=== PATIENT | male | born 1990 | race Caucasian/White ===

== ENCOUNTER 2020-05-03 01:11 | Emergency (ER) | payer BC, SELFPAY | END 2020-05-03 01:50 | disposition home or self-care (01) | LOC: CHSED 07:01 | PROVIDERS: Emergency Provider Emergency Medicine | DX: H60.93 Unspecified otitis externa, bilateral (principal) | CPT/HCPCS: 99199; 99283; A9270 ==

== ENCOUNTER 2020-10-04 11:44 | Outpatient (CLI) | payer BC, SELFPAY ==
[2020-10-04 12:51] LABS: SARS-CoV-2 Ag Negative (Negative)
== END 2020-10-04 11:45 | disposition home or self-care (01) ==
LOC: CHSLAB 11:49
DX: Z20.828 Contact with and (suspected) exposure to other viral communicable diseases (principal)
CPT/HCPCS: 87426

== ENCOUNTER 2024-05-20 07:35 | Emergency (ER) | payer SELFPAY ==
--- NOTE | ~2024-05-20 | CT_ITS ---
EXAMINATION: CT abdomen pelvis w con DATE: 05/20/2024 09:47 INDICATION: Left upper quadrant abdominal pain. Nausea. TECHNIQUE: Computed tomography (CT) of the abdomen and pelvis was performed with 100 mL Omnipaque 350 intravenous contrast. Automated exposure control and iterative reconstruction technique were employe d. The dose-length product was 1112.44 mGy-cm. COMPARISON: None. FINDINGS: The visualized portions of the lung bases demonstrate mild atelectasis. No pleural effusion . The heart size is normal. No pericardial effusion. There is mild bilateral gynecomastia. The liver, gallbladder, spleen, pancreas, adrenal glands, and kidneys are normal. There are no dilated loops of bowel. The appendix is normal. There are no pathologically enlarged lymph nodes. There is no free in traperitoneal fluid. There are chronic bilateral L5 pars defects. There is 3 mm anterolisthesis of L5 on S1. There is mild thoracic and lumbar spondylosis. There is mild chronic anterior wedging of mult iple thoracic vertebral bodies. IMPRESSION: 1. No etiology for the patient's symptoms. Reviewed, dictated and finalized at location A.
[2024-05-20 07:36] VITALS: BP 186/107; PULSE 107; RESP 20; TEMP 36.6; O2SAT 100
--- NOTE | 2024-05-20 07:42 | ECG_ITS ---
Test Date: 2024-05-20 07:51:39 Measurements Intervals [place] Rate: 87 P: 36 SD: 132 QRS: 1 QRSD: 90 T: 53 QT: 351 QTc: 424 Interpretive Statements SINUS RHYTHM WITH OCCASIONAL ECTOPIC PREMATURE COMPLEXES BORDERLINE ECG No previous ECG available for comparison Electronically Signed On 05-20-2024 07:53:56 CDT by Jace Fields D.O.
[2024-05-20 07:45] LABS: Glucose Point of Care 329 mg/dl (65-105)
[2024-05-20] MEDS: ONDANSETRON INJ 4 MG/2 ML VIAL IV PUSH (07:52)
[2024-05-20] MEDS: SODIUM CHLORIDE 0.9% IV 1,000 ML 999 ML IV CONT (07:52)
--- NOTE | 2024-05-20 07:58 | PC.NURSE ---
Patient refuses to take off pump due to wasting all the insulin still inside, Patient able to turn off auto bolus' and put in standby mode via phone.
[2024-05-20 08:30] VITALS: BP 175/103; PULSE 94; RESP 18; O2SAT 98
[2024-05-20 08:30] LABS: Basophils Absolute Auto 0.04 K/mm3 (0.00-0.10); Basophils Percent Auto 0.3 % (0.0-1.0); Hematocrit 37.9 % (40.0-54.0); Hemoglobin 13.4 g/dL (14.0-18.0); Immature Granulocyte Absolute 0.05 K/mm3 (0.00-0.00); Immature Granulocyte Percent A 0.4 % (0.0-0.0); Lymphocytes Absolute Auto 1.07 K/mm3 (1.10-4.50); Lymphocytes Percent Auto 8.1 % (18.0-42.0); Mean Corpuscular HGB Conc 35.4 g/dL (32-36); Mean Corpuscular Hemoglobin 29.5 pg (27.0-31.0); Mean Corpuscular Volume 83.5 fL (78.0-102.0); Mean Platelet Volume 11.1 fl (8.7-11.0); Monocytes Absolute Auto 0.19 K/mm3 (0.10-0.90); Monocytes Percent Auto 1.4 % (2.0-11.0); Neutrophils Percent Auto 89.8 % (50.0-70.0); Platelet Count Result 373 K/mm3 (150-420); Red Blood Count 4.54 M/mm3 (4.70-6.10); White Blood Count 13.2 K/mm3 (4.8-10.8)
[2024-05-20 08:40] LABS: Partial Thromboplastin Time 25.6 Sec (23.9-30.70); Prothrombin Time 10.6 Seconds (9.50-12.1)
[2024-05-20 08:50] LABS: Glucose Point of Care 318 mg/dl (65-105)
[2024-05-20 09:00] VITALS: BP 195/95; PULSE 100; RESP 16; O2SAT 98
--- NOTE | 2024-05-20 09:01 | PC.NURSE ---
ERP made aware of continuous elevated blood pressure, patient reports taking blood pressure medication as prescribed.
[2024-05-20 09:08] LABS: Influenza A QL RT-PCR Negative (Negative); Influenza B QL RT-PCR Negative (Negative); RSV RNA, RT-PCR Negative (Negative); SARS-CoV-2 RNA PCR Negative (Negative)
[2024-05-20 09:20] LABS: Albumin Level 3.9 g/dL (3.4-5.0); Alkaline Phosphatase 136 U/L (46-116); Anion Gap 11 mmol/L (4-12); Aspartate Amino Transferase 12 U/L (15-37); Bilirubin,Total 0.6 mg/dL (0.00-1.00); Blood Urea Nitrogen 23 mg/dL (7-18); Calcium 8.8 mg/dL (8.5-10.1); Carbon Dioxide 23 mmol/L (21-32); Chloride 95 mmol/L (98-108); Estimated CRCL calculation 75 ml/min; Estimated Glomerular Filt Rate 50; Glucose 310 mg/dL (70-99); Lipase 10 U/L (16-77); Osmolality Calculated 283 mOsm/kg (285-295); Potassium 4.9 mmol/L (3.5-5.1); Sodium 129 mmol/L (136-145); Total Protein 7.9 g/dL (6.4-8.2); Troponin I 12.6 ng/L (0.00-60.4)
[2024-05-20 09:22] LABS: Lactic Acid Reflex 1.5 mmol/L (0.4-2.0)
[2024-05-20 09:30] VITALS: BP 171/102; PULSE 100; RESP 16; O2SAT 99
[2024-05-20 09:30] LABS: Appearance Urine Clear (Clear); Bilirubin Urine Negative (Negative); Blood Urine 3+ (Negative); Color Urine Light Yellow (Yellow); Glucose Urine UA 3+ (Negative); Ketones Urine 1+ (Negative); Leukocyte Esterase Ur Negative LEU/UL (Negative); Nitrate Urine Negative (Negative); Protein Urine 3+ (Negative); Specific Grav Ur 1.025 (1.010-1.020); Urobilinogen Urine 0.2 mg/dL (0.2-1.0); pH Urine 5.5 (5.0-8.0)
--- NOTE | 2024-05-20 09:31 | PC.NURSE ---
Patient taken down to Ct.
[2024-05-20 09:38] LABS: Add Urine Microscopic? YES; RBC Urine 0-2 /hpf (0-2)
[2024-05-20 09:39] LABS: Amorphous Sediment Urine Moderate
--- NOTE | 2024-05-20 09:42 | PC.NURSE ---
patient back in room from ct.
[2024-05-20 09:43] LABS: Alanine Aminotransferase 18 U/L (16-63)
[2024-05-20 10:00] VITALS: BP 178/109; PULSE 93; RESP 16; O2SAT 100
[2024-05-20 10:04] LABS: Glucose Point of Care 302 mg/dl (65-105)
--- NOTE | 2024-05-20 10:05 | PC.NURSE ---
ERP aware of patient's blood glucose, Patient is going to apply dexcom monitor when he gets home and restart insulin pump to manage.
--- NOTE | 2024-05-20 10:05 | ED.NAVMDI ---
HPI - Nausea/Vomiting/Diarrhea General Chief complaint: Nausea/Vomiting/Diarrhea Stated complaint: nausea, vomiting Time Seen by Provider: 05/20/24 07:36 Source: patient Mode of arrival: ambulatory Limitations: no limitations History of Present Illness HPI Narrative: this is 33-year-old male with history of diabetes currently on insulin since Wednesday has been having nausea with vomiting crampy abdominal pain currently no diarrhea no fever chills, denies any shortness of breath no chest pain no flank pain or dysuria no hematuria. MD elicited complaint: nausea, vomiting and abdominal pain Onset (ago): day(s) Description of vomiting: watery Associated nausea: Yes Associated abdominal pain: Yes Location of pain: epigastric Related Data Home Medications Medication Instructions Recorded Confirmed blood-glucose sensor (Dexcom G6 05/20/24 05/20/24 Sensor device) insulin aspart U-100 100 unit/mL 90 unit subcut DAILY 05/20/24 05/20/24 subcutaneous solution (Novolog U-100 Insulin aspart) insulin pump cart,automated,BT 05/20/24 05/20/24 (Omnipod 5 G6 Pods (Gen 5) subcutaneous cartridge) lisinopril 10 mg tablet 10 mg PO DAILY 05/20/24 05/20/24 Allergies Allergy/AdvReac Type Severity Reaction Status Date / Time No Known Allergies Allergy Verified 05/20/24 07:37 Review of Systems Review of Systems: All systems reviewed & are unremarkable except as noted in HPI and below PMFSH Past Medical History Medical History Diabetes mellitus Exam Const: General: healthy appearing, no acute distress and alert Nutritional Appearance: well nourished Orientation/consciousness: patient oriented x3 Limitations: no limitations HENMT: Head: normal to inspection Eyes: Conjunctivae: conjunctivae normal Neck: Neck: normal visual inspection, no lymphadenopathy and no meningeal signs Chest: Chest palpation & inspection: normal inspection of the chest Resp: Effort & Inspection: normal respiratory effort Auscultation: clear to auscultation bilaterally Cardio: Rate: regular rate Rhythm: regular rhythm GI: GI Palp: Yes Soft to palpation and Yes Tenderness to palpation present (GI) : General: Yes bladder normal to palpation Skin: General skin exam: normal color Rashes: no rashes Neuro: General: patient oriented x3 Extrem: General: normal to inspection, no clubbing, cyanosis or edema and no pedal edema Course Course Emergency Course: patient received IV fluids and IV Zofran after reassessment patient's symptoms have improved sodium was 129 but did receive normal saline bolus glucose levels have improved and currently at 3:10 a.m.. Vital Signs Vital signs: Vital Signs Temperature 36.6 C 05/20/24 07:36 Pulse Rate 107 H 05/20/24 07:36 Respiratory Rate 20 05/20/24 07:36 Blood Pressure 186/107 H 05/20/24 07:36 Pulse Oximetry 100 05/20/24 07:36 Oxygen Delivery Room Air 05/20/24 07:36 Temperature 36.6 C 05/20/24 07:36 Pulse Rate 100 05/20/24 09:30 Respiratory Rate 16 05/20/24 09:30 Blood Pressure 171/102 H 05/20/24 09:30 Pulse Oximetry 99 05/20/24 09:30 Oxygen Delivery Room Air 05/20/24 09:00 MDM - Nausea/Vomiting/Diarrhea Lab Data 05/20/24 08:08 05/20/24 08:08 Labs: Lab Results 05/20/24 05/20/24 05/20/24 Range/Units 07:43 08:08 08:47 WBC 13.2 H (4.8-10.8) K/mm3 RBC 4.54 L (4.70-6.10) M/mm3 Hgb 13.4 L (14.0-18.0) g/dL Hct 37.9 L (40.0-54.0) % MCV 83.5 (78.0-102.0) fL MCH 29.5 (27.0-31.0) pg MCHC 35.4 (32-36) g/dL RDW 12.0 (11.6-14.4) % Plt Count 373 (150-420) K/mm3 MPV 11.1 H (8.7-11.0) fl Immature Gran % (Auto) 0.4 H (0.0-0.0) % Neut % (Auto) 89.8 H (50.0-70.0) % Lymph % (Auto) 8.1 L (18.0-42.0) % [place] % (Auto) 1.4 L (2.0-11.0) % Eos % (Auto) 0.0 L (1.0-6.0) % Baso % (Auto) 0.3 (0.0
[2024-05-20 10:17] VITALS: BP 178/109; PULSE 93; RESP 17; TEMP 36.3; O2SAT 100
--- NOTE | 2024-05-26 13:52 | PC.NURSE ---
Final blood culture report: no growth after 5 days, no further action or treatment needed.
--- NOTE | 2024-05-27 12:50 | PC.NURSE ---
final blood culture report reviewed. cutibacterium acnes noted from anaerobic bottle only. erp to review report
--- NOTE | 2024-05-28 12:41 | PC.NURSE ---
BLOOD CULTURE REVIEWED PER DR VINES, NO CHANGES NEEDED, JUST FOLLOW UP WITH FMD. CALL TO PT AND MESSAGE LEFT PER VOIC[employer]
== END 2024-05-20 10:17 | disposition home or self-care (01) ==
PROVIDERS: Emergency Provider Emergency Medicine
DX: K52.9 Noninfective gastroenteritis and colitis, unspecified (principal); E11.65 Type 2 diabetes mellitus with hyperglycemia; Z79.4 Long term (current) use of insulin; Z20.822 Contact with and (suspected) exposure to COVID-19
CPT/HCPCS: 36415; 74177; 80053; 81001; 82948; 83605; 83690; 84484; 85025; 85610; 85730; 87040; 87147; 87637; 93005; 96361; 96374; 99284; J2405; J7030; Q9967

== ENCOUNTER 2024-05-21 14:42 | Emergency (ER) | payer SELFPAY ==
[2024-05-21 14:42] VITALS: BP 126/80; PULSE 81; RESP 16; TEMP 36.6; O2SAT 97
--- NOTE | 2024-05-21 14:50 | ED.BACK ---
HPI - Back Pain/Injury General Chief Complaint: Back Pain/Injury Stated Complaint: back pain Time Seen by Provider: 05/21/24 14:50 Source: patient Mode of arrival: ambulatory Limitations: no limitations History of Present Illness HPI Narrative: patient is a 33-year-old male who was here yesterday for an abdominal pain workup and was found to have some dehydration. He also had a malfunction of his diabetic pump and blood sugar monitor. At this time his blood sugars at home have been normal. He is here with some lower back pain and a little bit of cramping in the belly after being sick for the past few days. He was having nausea vomiting which has resolved at this time. MD elicited complaint: back pain Pertinent past history: other ( Recent acute illness that had vomiting) Onset (ago): day(s) (2) Timing: constant Severity: moderate Pain scale (0-10): 5 Similar Symptoms Previously: No Quality: sharp Location: lumbar spine and thoracic spine Radiation: abdomen Exacerbating factors: movement Relieving factors: immobilization Context: other ( recent illness with vomiting) Associated symptoms: denies other symptoms Treatments prior to arrival: heat therapy Related Data Home Medications Medication Instructions Recorded Confirmed blood-glucose sensor (Dexcom G6 05/20/24 05/21/24 Sensor device) insulin aspart U-100 100 unit/mL 90 unit subcut DAILY 05/20/24 05/21/24 subcutaneous solution (Novolog U-100 Insulin aspart) insulin pump cart,automated,BT 05/20/24 05/21/24 (Omnipod 5 G6 Pods (Gen 5) subcutaneous cartridge) lisinopril 10 mg tablet 10 mg PO DAILY 05/20/24 05/21/24 Allergies Allergy/AdvReac Type Severity Reaction Status Date / Time No Known Allergies Allergy Verified 05/21/24 14:43 Review of Systems Review of Systems: All systems reviewed & are unremarkable except as noted in HPI and below Constitutional: Constitutional: Reports no additional constitutional complaints Eyes: Eyes: Reports no additional eye complaints ENT: Reports system reviewed and no additional complaints, except as documented Cardiovascular: Cardiovascular: Reports no additional cardiovascular complaints Respiratory: Respiratory: Reports no additional respiratory complaints Gastrointestinal: Gastrointestinal: Reports no additional gastrointestinal complaints Genitourinary: Genitourinary: Reports no additional male genitourinary complaints Musculoskeletal: Musculoskeletal: Reports no additional musculoskeletal complaints Integumentary/Breasts: Skin/Breast: Reports system reviewed and no additional complaints, except as docu Neurologic: Reports system reviewed and no additional complaints, except as documented Psychiatric: Psychiatric: Reports no additional psychiatric complaints Endocrine: Endocrine: Reports no additional endocrine complaints Hematologic/Lymphatic: Hematologic/Lymphatic: Reports no additional hematologic/lymphatic complaints Allergic/Immunologic: Allergic/Immunologic: Reports no additional allergic/immunologic complaints PMFSH Past Medical History Medical History Diabetes mellitus Exam Const: General: healthy appearing Nutritional Appearance: well nourished Orientation/consciousness: patient oriented x3 HENMT: Head: normal to inspection Ears: external ears normal Face/Nose/Sinus: Normal external nose present Eyes: Conjunctivae: conjunctivae normal Pupils: Equal, round and reactive pupils present EOM: EOMs intact bilaterally Neck: Neck: normal visual inspection Chest: Chest palpation & inspection: normal inspection of the chest Resp: Effort & Inspection: normal respiratory effort and not labored Auscultation: clear to auscultation bilaterally Cardio: Rate: regular rate Rhythm: regular rhythm Heart sounds: no murmurs GI: Inspection: non-distended GI Palp: Yes Soft to palpation, No Tenderness to palpation present (GI),
[2024-05-21 15:00] VITALS: BP 164/99; PULSE 80; RESP 17; O2SAT 99
[2024-05-21] MEDS: ORPHENADRINE CITRATE 30 MG/ML 2 ML VIAL 60 MG IM (15:11)
[2024-05-21 15:30] VITALS: BP 173/106; PULSE 84; RESP 17; O2SAT 99
[2024-05-21 15:51] VITALS: BP 174/103; PULSE 86; RESP 17; TEMP 36.6; O2SAT 99
== END 2024-05-21 15:51 | disposition home or self-care (01) ==
PROVIDERS: Emergency Provider Emergency Medicine
DX: S39.012A Strain of muscle, fascia and tendon of lower back, initial encounter (principal); E11.9 Type 2 diabetes mellitus without complications; Z79.4 Long term (current) use of insulin; X58.XXXA Exposure to other specified factors, initial encounter
CPT/HCPCS: 96372; 99283; J2360

== ENCOUNTER 2024-06-16 09:42 | Outpatient (CLI) | payer BC, SELFPAY ==
[2024-06-16 09:56] LABS: Basophils Absolute Auto 0.07 K/mm3 (0.00-0.10); Basophils Percent Auto 0.9 % (0.0-1.0); Eosinophils Absolute Auto 0.12 K/mm3 (0.02-0.50); Eosinophils Percent Auto 1.6 % (1.0-6.0); Hematocrit 37.3 % (40.0-54.0); Hemoglobin 12.8 g/dL (14.0-18.0); Immature Granulocyte Absolute 0.01 K/mm3 (0.00-0.00); Immature Granulocyte Percent A 0.1 % (0.0-0.0); Lymphocytes Absolute Auto 2.38 K/mm3 (1.10-4.50); Mean Corpuscular HGB Conc 34.3 g/dL (32-36); Mean Corpuscular Hemoglobin 29.4 pg (27.0-31.0); Mean Corpuscular Volume 85.7 fL (78.0-102.0); Mean Platelet Volume 11.5 fl (8.7-11.0); Monocytes Percent Auto 5.4 % (2.0-11.0); Neutrophils Absolute Auto 4.45 K/mm3 (1.70-7.20); Platelet Count Result 348 K/mm3 (150-420); Red Blood Count 4.35 M/mm3 (4.70-6.10); Red Cell Distribution Width 12.1 % (11.6-14.4); White Blood Count 7.4 K/mm3 (4.8-10.8)
[2024-06-16 10:50] LABS: Alanine Aminotransferase 17 U/L (16-63); Albumin Level 4.2 g/dL (3.4-5.0); Alkaline Phosphatase 76 U/L (46-116); Anion Gap 8 mmol/L (4-12); Aspartate Amino Transferase 10 U/L (15-37); Bilirubin,Total 0.5 mg/dL (0.00-1.00); Blood Urea Nitrogen 44 mg/dL (7-18); Calcium 9.3 mg/dL (8.5-10.1); Carbon Dioxide 28 mmol/L (21-32); Chloride 96 mmol/L (98-108); Estimated Glomerular Filt Rate 28; Glucose 152 mg/dL (70-99); Osmolality Calculated 288 mOsm/kg (285-295); Sodium 132 mmol/L (136-145); Total Protein 7.1 g/dL (6.4-8.2)
[2024-06-16 11:16] LABS: Thyroid Stimulating Hormone Reflex 0.68 u/IU/mL (0.36-3.74)
[2024-06-16 15:35] VITALS: BP 132/81; PULSE 97; RESP 16; TEMP 36.2; O2SAT 100; BMI 28.2
[2024-06-16] MEDS: SODIUM CHLORIDE 0.9% IV 1,000 ML 500 ML IV CONT (15:39)
--- NOTE | 2024-06-16 15:40 | PC.NURSE ---
Patient here for IV fluids. Tolerated IV start well. Sitting up in chair resting. Call light provided. IV fluids started per order. Provided with ice water per request.
--- NOTE | 2024-06-16 17:45 | PC.NURSE ---
IV fluids done infusing. IV site saline locked. This nurse will wait 15 minutes and draw post lab work for IV site.
--- NOTE | 2024-06-16 18:05 | PC.NURSE ---
Post labs obtained from patients IV site. Patient tolerated well. IV site flushed and discontinued. Dressing applied to site. Patient denies any questions at this time. Notified that labs with be sent to primary doctors office. Patient left floor ambulatory.
[2024-06-16 18:40] LABS: Albumin Level 3.8 g/dL (3.4-5.0); Anion Gap 8 mmol/L (4-12); Blood Urea Nitrogen 40 mg/dL (7-18); Calcium 8.4 mg/dL (8.5-10.1); Carbon Dioxide 27 mmol/L (21-32); Chloride 98 mmol/L (98-108); Estimated CRCL calculation 46 ml/min; Estimated Glomerular Filt Rate 33; Glucose 103 mg/dL (70-99); Osmolality Calculated 285 mOsm/kg (285-295); Phosphorus 3.9 mg/dL (2.6-4.7); Sodium 133 mmol/L (136-145)
== END 2024-06-16 09:43 | disposition home or self-care (01) ==
LOC: CHSLAB 09:44 → CHSTREATRM 15:14
PROVIDERS: PCP Nurse Practitioner Family; Visit Provider Nurse Practitioner Family
DX: R11.2 Nausea with vomiting, unspecified (principal); R79.89 Other specified abnormal findings of blood chemistry; E87.8 Other disorders of electrolyte and fluid balance, not elsewhere classified
CPT/HCPCS: 36415; 80053; 80069; 84443; 85025; 96360; 96361; J7030

== ENCOUNTER 2024-06-19 16:51 | Outpatient (CLI) | payer BC, SELFPAY ==
[2024-06-20 18:46] LABS: Alanine Aminotransferase 18 U/L (16-63); Alkaline Phosphatase 69 U/L (46-116); Aspartate Amino Transferase 11 U/L (15-37); Bilirubin,Total 0.5 mg/dL (0.00-1.00); Blood Urea Nitrogen 29 mg/dL (7-18); Chloride 99 mmol/L (98-108); Estimated Glomerular Filt Rate 37; Glucose 175 mg/dL (70-99); Osmolality Calculated 287 mOsm/kg (285-295); Sodium 134 mmol/L (136-145); Total Protein 6.7 g/dL (6.4-8.2)
[2024-06-20 19:26] LABS: Anion Gap 11 mmol/L (4-12); Carbon Dioxide 24 mmol/L (21-32)
== END 2024-06-19 16:52 | disposition home or self-care (01) ==
LOC: CHSLAB 16:52
PROVIDERS: PCP Nurse Practitioner Family; Visit Provider Nurse Practitioner Family
DX: E87.8 Other disorders of electrolyte and fluid balance, not elsewhere classified (principal); R11.2 Nausea with vomiting, unspecified
CPT/HCPCS: 36415; 80053

== ENCOUNTER 2024-06-20 13:22 | Emergency (ER) | payer BC, SELFPAY ==
[2024-06-20 13:25] VITALS: BP 130/77; PULSE 99; RESP 20; TEMP 36.6; O2SAT 98
[2024-06-20 14:46] VITALS: BP 126/84; PULSE 94
[2024-06-20] MEDS: SODIUM CHLORIDE 0.9% IV 1,000 ML 999 ML IV CONT (14:56)
[2024-06-20 14:59] VITALS: BP 117/79; PULSE 94; RESP 21; O2SAT 100
--- NOTE | 2024-06-20 15:03 | ED.GENADULT ---
HPI - General Adult General Chief complaint: Nausea/Vomiting/Diarrhea Stated complaint: I'm fighting dehydration Time Seen by Provider: 06/20/24 14:48 History of Present Illness HPI narrative: 33-year-old male presenting to the emergency department for evaluation of intermittent nausea vomiting causing acute kidney injury. Patient was having outpatient labs that were showing trending improvement. Patient does have follow-up scheduled with GI for a gastroparesis workup, this happening tomorrow. Patient states he has been taking Reglan intermittently for symptom control. At time of evaluation patient denies any current nausea or vomiting. Patient denies any current abdominal pain. Patient is no distress at time of evaluation. Related Data Home Medications Medication Instructions Recorded Confirmed blood-glucose sensor (Dexcom G6 05/20/24 06/16/24 Sensor device) insulin aspart U-100 100 unit/mL 90 unit subcut DAILY 05/20/24 06/16/24 subcutaneous solution (Novolog U-100 Insulin aspart) insulin pump cart,automated,BT 05/20/24 06/16/24 (Omnipod 5 G6 Pods (Gen 5) subcutaneous cartridge) lisinopril 10 mg tablet 10 mg PO DAILY 05/20/24 06/16/24 Allergies Allergy/AdvReac Type Severity Reaction Status Date / Time No Known Allergies Allergy Verified 06/16/24 08:51 Review of Systems Review of Systems: All systems reviewed & are unremarkable except as noted in HPI and below PMFSH Past Medical History Medical History (Updated 06/20/24 @ 17:41 by Flash Lee MD) Diabetes mellitus type I, controlled Nausea & vomiting Family History Family History (Updated 06/16/24 @ 10:04 by Bill Redd APRN) Grandparent Diabetes mellitus Type II Sibling Diabetes mellitus Type I Son Diabetes mellitus Type I DM Social History Social History Smoking status: Never smoker Alcohol intake: current Substance use: never Exam Narrative: APPEARANCE: Well appearing, no pain, no distress, well-nourished. HEAD: normocephalic, atraumatic. EYES: PERRLA/EOMI, conjunctivae clear. NOSE: Normal no drainage EARS:TMS clear with good light reflex. THROAT: Pharynx clear, no exudate. NECK: Supple. No adenopathy, no masses. RESPIRATORY: Airway patent, respirations nonlabored. Clear to auscultation bilaterally, no rales, rhonchi, wheezing. CARDIOVASCULAR: Regular rate and rhythm without murmurs rubs or gallops. ABDOMINAL: Soft, nontender, nondistended, normal bowel sounds MUSCULOSKELETAL: Moves all extremities. Strength/ROM intact, No edema, No calf tenderness. NEURO: Alert. Cranial nerves II through XII intact. Grossly intact SKIN: Warm, dry. Normal Color Course Course Emergency Course: Patient did have an improvement of his baseline creatinine and was encouraged to continue to have follow-up with GI Vital Signs Vital signs: Vital Signs Temperature 97.9 F 06/20/24 13:25 Pulse Rate 99 06/20/24 13:25 Respiratory Rate 20 06/20/24 13:25 Blood Pressure 130/77 06/20/24 13:25 Pulse Oximetry 98 06/20/24 13:25 Oxygen Delivery Room Air 06/20/24 13:25 Temperature 97.9 F 06/20/24 13:25 Pulse Rate 87 06/20/24 15:57 Respiratory Rate 18 06/20/24 15:57 Blood Pressure 135/89 06/20/24 15:57 Pulse Oximetry 100 06/20/24 15:57 Oxygen Delivery Room Air 06/20/24 13:25 Medical Decision Making MDM Narrative Medical decision making narrative: 33-year-old male presents emergency department for evaluation for potentially worsening kidney function. Patient is afebrile with no ptosis and hemoglobin 11.8. Patient's creatinine was elevated 1.7 but this is a trending improvement since his previous. Patient states he has been attempting to drink fluids and take Reglan for nausea control. Patient does have follow-up with GI as outpatient tomorrow. All questions concerns were addressed and patient was encoura
[2024-06-20 15:04] LABS: Basophils Absolute Auto 0.1 K/mm3 (0.0-0.1); Basophils Percent Auto 0.9 % (0.2-1.2); Eosinophils Absolute Auto 0.2 K/mm3 (0-0.3); Eosinophils Percent Auto 2.4 % (0-4.4); Hematocrit 35.9 % (42.0-52.0); Hemoglobin 11.8 g/dL (14.0-18.0); Immature Granulocyte Absolute 0.03 K/mm3 (0.00-0.031); Immature Granulocyte Percent A 0.4 % (0-0.5); Lymphocytes Absolute Auto 1.87 K/mm3 (0.9-3.2); Lymphocytes Percent Auto 26.8 % (18.3-44.2); Mean Corpuscular HGB Conc 32.9 g/dl (32-36); Mean Corpuscular Hemoglobin 29.5 pg (26-34); Mean Corpuscular Volume 89.8 fl (80-100); Mean Platelet Volume 11.4 fl (7.4-10.4); Monocytes Absolute Auto 0.4 K/mm3 (0.1-0.6); Neutrophils Absolute Auto 4.4 K/mm3 (1.3-6.7); Neutrophils Percent Auto 63.5 % (45.5-73.1); Platelet Count Result 324 k/mm3 (150-375); Red Cell Distribution Width 12.5 % (11.5-14.5)
[2024-06-20 15:37] VITALS: BP 130/78; PULSE 86
[2024-06-20 15:39] VITALS: BP 106/69; PULSE 106
[2024-06-20 15:57] VITALS: BP 135/89; PULSE 87; RESP 18; O2SAT 100
[2024-06-20 15:58] LABS: Add Urine Microscopic? YES; Appearance Urine Clear (Clear); Bacteria Urine None Seen /hpf; Bilirubin Urine Negative (Negative); Blood Urine Negative (Negative); Color Urine Yellow (Yellow); Glucose Urine UA Negative (Negative); Ketones Urine Negative (Negative); Leukocyte Esterase Ur Negative LEU/UL (Negative); Nitrate Urine Negative (Negative); Protein Urine 1+ mg/dL (Negative); RBC Urine 0-2 /hpf (0-2); Specific Grav Ur 1.013 (1.001-1.035); Squamous Epithelial Cell Urine None Seen /hpf (Few); WBC Urine 0-5 /hpf (0-3)
[2024-06-20 16:55] LABS: Alanine Aminotransferase 14 U/L (6-50); Albumin Level 4.2 g/dL (3.5-5.1); Alkaline Phosphatase 61 U/L (38-126); Anion Gap 9 mmol/L (4-12); Aspartate Amino Transferase 21 U/L (17-59); Bilirubin,Total 0.5 mg/dL (0.2-1.3); Blood Urea Nitrogen 25 mg/dL (9-20); Calcium 9.3 mg/dL (8.4-10.2); Carbon Dioxide 26 mmol/L (22-30); Chloride 99 mmol/L (98-107); Estimated CRCL calculation 61 ml/min; Estimated Glomerular Filt Rate 47; Glucose 99 mg/dL (65-110); Lipase 24 U/L (23-300); Potassium 4.4 mmol/L (3.4-5.0); Sodium 134 mmol/L (137-145)
== END 2024-06-21 02:52 | disposition home or self-care (01) ==
PROVIDERS: Preventive Medicine Aerospace Medicine; Emergency Provider Emergency Medicine; PCP Nurse Practitioner Family
DX: N17.9 Acute kidney failure, unspecified (principal); Z79.4 Long term (current) use of insulin; E10.9 Type 1 diabetes mellitus without complications
CPT/HCPCS: 36415; 80053; 81001; 83690; 85025; 96360; 99283; J7030

== ENCOUNTER 2024-06-22 13:05 | Outpatient (CLI) | payer BC, SELFPAY ==
--- NOTE | ~2024-06-22 | CT_ITS ---
Non-contrast CT scan of the Abdomen and Pelvis Clinical indication: Constipation Technique: 2.5 mm axial scans were obtained through the abdomen and pelvis without intravenous or or al contrast. Dose reduction technique was used on this scan by utilizing automated exposure control a nd iterative reconstruction technique. The dose-length product (DLP) was 913.89 mGy-cm. COMPARISON: 05/20/2024 Findings: Images through the lung bases reveal no abnormalities. There is no evidence of renal or ureteral calculi. The kidneys and the ureters are nondilated. The liver, spleen, pancreas, gallbladder, and adrenals appear normal. There is no aortic aneurysm. There is no evidence of bowel obstruction. Images through the pelvis were performed. There is no evidence of ascites or lymphadenopathy. Urinary bladder unremarkable. No pelvic mass seen. Bilateral L5 pars interarticularis defects are present. Impression: No acute abnormality seen. Bilateral L5 pars interarticularis defects. Reviewed, dictated and finalized at [facility]. Impression: No acute abnormality seen. Bilateral L5 pars interarticularis defects.
== END 2024-06-22 13:06 | disposition home or self-care (01) ==
PROVIDERS: PCP Nurse Practitioner Family; Visit Provider Nurse Practitioner Family
DX: R11.2 Nausea with vomiting, unspecified (principal); K59.00 Constipation, unspecified; M43.8X6 Other specified deforming dorsopathies, lumbar region
CPT/HCPCS: 74176

== ENCOUNTER 2025-05-16 20:01 | Emergency (ER) | payer OTHER, SELFPAY ==
[2025-05-16] VITALS (11 sets, daily range): BP systolic 152–171; BP diastolic 88–96; PULSE 80–108; RESP 17–26; TEMP 36.9–37.3; O2SAT 96–98
--- NOTE | ~2025-05-16 | XR_ITS ---
XR chest 1V portable Ordering provider: Boubacar Hale MD History: 34 years Male with . WEAKNESS . Comparison: February 20, 2018 FINDINGS: MEDIASTINUM: The cardiac silhouette is slightly enlarged. LUNGS: No infiltrates, effusions or pneumothorax. OTHER: No free air under the diaphragm. Degenerative changes of the spine. IMPRESSION: No acute cardiopulmonary pathology. Reviewed, dictated and finalized at location A.
--- OUTSIDE RECORDS SUMMARY | 2025-05-16 20:03 | XMS_ITS | Encounter Summary ---
Author Organization [facility] Address [address] [place] [address] Care Team Providers Care Burlapper Name Role Phone Jae Martínez MD Primary Care Provider [phone] Encounter Details Date Type Department Care Team (Late st Contact Info) Description 05/15/2025 External Device Data [facility] ABSTRACTION Provider, Abstract NO ADDRESS ON FILE Social History Tobacco Use Types Packs/Day Years Used Date Smoking Tobacco: Never Smokeless Tobacco: Never Alcohol Use Standard Drinks/Week Comments Not Currently 2 (1 standard drink = 0.6 oz pure alcohol) bowling on wednesday nights, last drink was over a year Feeling Safe Answer Date Recorded Are you in a relationship wi th someone who hurts you emotionally and/or physically? No 05/14/2025 Food Insecurity Answer Date Recorded Patient needs follow up regardin 03/15/2025 Transportation Needs Answer Date Record ed Patient needs follow up regardin 03/15/2025 Housing Stability Answer Date Recorded Social/Environmental Concerns No concerns Utility Needs Answer Date Recorded Patient needs follow up regardin 03/15/2025 Sex and Gender Information Value Date Recorded Sex Assigned at Not on file Legal Sex Male 3:06 AM [employer] Gender Identity Not on file Sexual Orientation Not on file documented as of this encounter Plan of Treatment Not on file documented as of this encounter Visit Diagnoses Not on filedocumented in this encounter Care Teams Burlapper Relationship Specialty Start Date End Date Jae Martínez MD PCP - General 02/22/09 documented as of this encounter
--- OUTSIDE RECORDS SUMMARY | 2025-05-16 20:03 | XMS_ITS | Encounter Summary ---
Author Organization [facility] Address [address] [place] [address] Care Team Providers Care Knuckler Name Role Phone Jae Martínez MD Primary Care Provider [phone] Reason for Visit * Reason Comments Nausea Pt to ED with n/v on set yesterday. +back and abd pain. Hx type1 DM. BG has been fine at home. Pt thinks he is dehydrated. * Auth/Cert (Routine) Specialty Diagnoses / Procedures Referred By Contac t Referred To Contact Internal Medicine Morro Donahue MD [address] [facility] [address] Phone: tel: fax: [facility] [address] [place] [address] Phone: tel: fax: Referral ID Status Reason Start Date Expiration Date Visits Re quested Visits Authorized [id number] 1 1 Encounter Details Date Type Department Care Team (Latest Contact Info) Description 05/14/2025 3:07 PM CDT - 05/15/2025 2:12 PM CDT Hospital Encounter [facility] [address] [place] [address] Lauri Gallardo MD [address] [place] [address] Keegan Jones, [address] [place] [id number] Morro Donahue MD [address] [address] Cindy Estrada MD 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 Gender Identity Not on file Sexual Orientation Not on file documented as of this encounter Last Filed Vital Signs Vital Sign Reading Time Taken Comments Blood Pressure 141/82 05/15/2025 12:19 PM CDT nurse notifed Pulse 73 05/15/2025 12:19 PM CDT Temperature 36.8 C (98.3 F) 05/15/2025 12:19 PM CDT Respiratory Rate 20 05/15/2025 12:1 9 PM CDT Oxygen Saturation 97% 05/15/2025 12: 19 PM CDT Inhaled Oxygen Concentration - - Weight 113.4 kg (250 lb) 05/14/2025 12: 45 PM CDT Height 182.9 cm (6') 05/14/2025 12:45 PM CDT Body Mass Index 33.91 05/14/2025 12:45 PM CDT documented in this encounter Discharge Summaries * Cindy Estrada MD - 05/15/2025 1:26 PM CDT [facility] Adult Hospitalist Discharge Summary Park French 34 y.o. male 1990 CSN: [id number] Date of Admission: 05/14/2025 Date of Discharge: 05/15/2025 Discharging Physician: Cindy Estrada MD LOS: 0 days PCP: Jae Martínez MD Activity: activity as tolerated. Dispo: home Diet: DIET DIABETIC Gluten: Gluten Free, Code Status at Discharge: Full Code Wound Care: None needed Hospital Course: Park French, a 34-year-old male with a history of type 1 diabetes mellitus, gastroesophageal reflux disease (GERD), and hypertension, was admitted on 05/14/2025 with complaints of nausea, vomiting, and abdominal pain. The principal diagnosis was unclear, but possible causes included GERD exacerbation vs gastroenteritis vs heat exhaustion; imaging and labs showed no acute pathology, and the patient was not in diabetic ketoacidosis (DKA). A CT scan of the abdomen and pelvis revealed no acute inflammatory process. The patient was treated with antiemetics, IV fluids, and a clear liquid diet. Symptoms improved with supportive care. Diet was advanced. The patient was also noted to have hypomagnesemia, which was supplemented. By the end of the hospitalization, the patient was feeling better, with reduced nausea and improved tolerance of liquids. He was discharged with instructions to follow up with his primary care physician in one week, resume home medications, and maintain hydration while avoiding heat exposure. Nutritional status and in-house recommendations: Current Diet and/or Nutritional Supplementation ordered: DIET DIABETIC Gluten: Gluten Free, Admitting Dx: Abdominal pain Discharge Diagnoses: Active Hospital Problems Diagnosis Abdominal pain Nausea & vomiting Resolved Hospital Problems No resolved problems to display. Follow-up: Jae Martínez MD in 5 days. Labs Needing Follow Up: none Discharge medications and new prescriptions: Medication List CONTINUE taking these medications blood sugar diagnostic Strip Commonly known as: OneTouch Ultra Test QID AO and HS Signed by: Dr. Rosemary Martínez Quantity: 200 Strip Refills: 2 insulin aspart U-100 100 unit/mL vial Commonly known as: NovoLOG INJECT 90 UNITS TOTAL DAILY DOSE VIA INSULIN PUMP Refills: 0 lisinopriL 10 mg tablet Commonly known as: PRINIVIL Take 10 mg by mouth daily at bedtime. Refills: 0 metoclopramide HCl 10 mg tablet Commonly known as: REGLAN Take 10 mg by mouth 3 times daily before meals. Refills: 0 ondansetron 4 mg Tablet, Rapid Dissolve Commonly known as: ZOFRAN ODT Place 4 mg under tongue every 8 hours as needed for Nausea/Emesis. Refills: 0 pantoprazole 40 mg Tablet, Delayed Release (E.C.) Commonly known as: PROTONIX Take 40 mg by mouth daily. Refills: 0 Consultants: None Significant Diagnostic Studies This Admission: CT A/P No acute inflammatory process identified within the abdomen or pelvis. Discharge Lab Data: Lab Results Component Value Date WBC 14.2 (H) 05/15/2025 HGB 13.6 05/15/2025 HCT 39.0 (L) 05/15/2025 PLT 369 (H) 05/15/2025 NA 136 05/15/2025 CL 102 05/15/2025 K 3.9 05/15/2025 CO2 23 05/15/2025 BUN 13 05/15/2025 CREAT 1.19 (H) 05/15/2025 GLUCOSE 154 (H) 05/15/2025 AST 17 05/15/2025 ALT 15 05/15/2025 Discharge Exam: BP (!) 141/82 (BP Location: Right arm, Patient Position (BP): Supine) Comment: nurse notifed Pulse 73 Temp 98.3 ??F (36.8 ??C) (Oral) Resp 20 Ht 6' (1.829 m) Wt 113.4 kg (250 lb) SpO2 97% BMI 33.91 kg/m?? Discharge Condition: improving Cindy Estrada MD documented in this encounter Discharge Instructions * Discharge Instructions* Cindy Estrada MD - 05/15/2025 1:25 PM CDT FOLLOW-UP Follow up with Jae Martínez MD in 1 week(s). Your CT scan was normal. No serious cause was identified. Recommend that you keep hydrated and avoid the heat. Prescriptions Resume home medications. ACTIVITY Your activity level is: increase activity as tolerated and no smoking. DIET Your diet is: resume your regular diet documented in this encounter Medications at Time of Discharge lisinopriL (PRINIVIL) 10 mg tablet Take 10 mg by mouth daily at bedtime. pantoprazole (PROTONIX) 40 mg Tablet, Delayed Release (E.C.) Take 40 mg by mouth daily. 06/16/2024 metoclopramide HCl (REGLAN) 10 mg tablet Take 10 mg by mouth 3 times daily before meals. 06/09/2024 ondansetron (ZOFRAN ODT) 4 mg Tablet, Rapid Dissolve Place 4 mg under tongue every 8 hours as needed for Nausea/Emesis . 05/20/2024 insulin aspart U-100 (NovoLOG) 100 unit/mL vial INJECT 90 UNITS TOTAL DAILY DOSE VIA INSULIN PUMP 04/17/2024 blood sugar diagnostic (ONE TOUCH ULTRA TEST) Misc StrpIndications:Ty pe II or unspecified type diabetes mellitus without mention of complication, uncontrolled QID AO and HS 200 Strip 2 10/19/2011 documented as of this encounter Progress Notes * Sangeeta Medeiros RN - 05/15/2025 6:59 AM CDT Shift Summary: Pt A&O x4; c/o pain in his abdomen; PRN tylenol & Zofran administered. Pt ambulating independently. Pt is continent of both stool & urine; No BM on shift. Pt is on room air. Humalog ordered Q4 for BG >180; only administered at 0518 for BG 262. * Taniya Espinoza LSW - 05/14/2025 9:41 PM CDT Manual CDPA Clinical documentation reviewed. Comprehensive Discharge Planning Risk Assessment was completed. Documentation Related to CDPA score Total score of 9 or below does not identify immediate needs for discharge. Age Score: 0 Disability Score: 0 Prior Living Status Score: 0 Mobility Limitation Score: 0 Total Score: [address] consult if needs for discharge are identified. Care Management will continue to follow for discharge planning. TUCKER BarcenasW Heavy Equipment Mechanic II * Bebe Otto MD - 05/14/2025 7:[address] [facility] HOSPITALIST ADMISSION NOTE This patient is being seen on 05/14/2025 in [facility] using bidirectional synchronous audio and video communication. Upon establishment of audio-visual connection, the following two identifiers were used to confirm the patient's identity: name and date of . No visitors were present in the room for the duration of our conversation. Problem List: Principal Problem: Abdominal pain Active Problems: Nausea & vomiting Assessment and Plan: Nausea vomiting and abdominal pain: Unclear etiology, lipase normal, CT abdomen and pelvis no acutepathology,denies marijuana, urine toxicology negative, not in DKA. Possible GERD or constipation. Antiemetics, IV fluids, clear liquids ordered. GERD: Give Protonix IV for possible GERD exacerbation Diabetes mellitus type 1: Uses insulin pump typically. It is functioning but running out of insulin. Turn off pump. Give Lantus 25 units nightly, insulin lispro for prandial and sliding scale coverage ordered. Unclear liquids, unsure how much he can consume food yet. Titrate insulin as indicated Elevated blood pressures: Does not have hypertension typically, trend, on lisinopril 10 mg only which is resumed, mostly for renal protection Probable BISMARK or BISMARK on CKD: No known history of CKD, IV fluids and trend Possible glomerulonephritis from longstanding diabetes mellitus: UA showing protein, glucose shown but no WBC. Follow-up - Diet: DIET CLEAR LIQUID - DVT Prophylaxis: heparin - Disposition: home once medically stable. - Code Status: was discussed with the patient; patient's code status is Full Code. __ Chief Complaint: Nausea vomiting, abdominal pain History of Present Illness: Park French is a 34 y.o. male who presents from home with above-mentioned chief complaints. Patient has known type 1 diabetes mellitus from the age of 18 years he is on insulin pump is functioning fine. Patient started having nausea vomiting the day prior to admission. He also has abdominalpain. He had regular normal bowel movement a day prior to admission. He denies eating food from outside home. He denies eating leftover food. No one at home has similar problems. No reports of fever or chills or travel or diarrhea. Patient denies any headache blurred vision or chest pain/pressure or shortness of breath no history of hematuria, trauma ER course: CT abdomen/pelvis IMPRESSION: 1. No acute inflammatory process identified within the abdomen or pelvis. CBC- WNL except WBC 11.2, Trop T normal x 2, CMP - WNL except sodium 134, creatinine 1.35, Glu- 166, LFT normal, Venous blood Gas - Ph- 7.31, Pco2-- 44, Bicarb - 22, Po2 - 64 TSH 0.39, Urine tox screen- negative, UA_ ketnes negative, protein 3 plus and glucose 2plus, WBC 0-2, RBC 6-10. Hyaline casts 6-10 Past Medical History: Diagnosis Date DM type 1 (diabetes mellitus, type 1) ([facility]) GERD (gastroesophageal reflux disease) Hypertension Past Surgical History: Procedure Laterality Date HX ESOPHAGOGASTRODUODENOSCOPY N/A 06/24/2024 ESOPHAGOGASTRODUODENOSCOPY performed by Bhavani Alejandre DO at [facility] HX TUMOR REMOVAL benign tumor, at age of 5 Family History Problem Relation Name Age of Onset Other Mother obesity Diabetes Paternal Uncle Social History Socioeconomic History Marital status: Spouse name: Not on file Number of children: Not on file Years of education: Not on file Highest education level: Not on file Occupational History Not on file Tobacco Use Smoking status: Never Smokeless tobacco: Never Substance and Sexual Activity Alcohol use: Not Currently Alcohol/week: 2.0 standard drinks of alcohol Types: 2 Cans of beer per week Comment: bowling on wednesday nights, last drink was over a year Drug use: Never Sexual activity: Not on file Other Topics Concern Service Not Asked Blood Transfusions Not Asked Caffeine Concern Not Asked Occupational Exposure Not Asked Hobby Hazards Not Asked Sleep Concern Not Asked Stress Concern Not Asked Weight Concern Not Asked Special Diet Not Asked Back Care Not Asked Exercise Yes Bike Helmet Not Asked Seat Belt Yes Self-Exams Not Asked Social History Narrative Not on file Social Drivers of Health Food Insecurity: Not on file (03/15/2025) Transportation Needs: No Transportation Needs (03/15/2025) Transportation Needs Patient needs follow up regarding:: 1 Feeling Safe: Not At Risk (05/14/2025) Feeling Safe Patient has indicated abuse: : No Housing Stability: Low Risk (06/23/2024) Housing Stability Patient needs follow up regarding:: No concerns Allergies: No Known Allergies Home Medication List: Prior to Admission Medications Prescriptions Last Dose Informant Patient Reported? Taking? blood sugar diagnostic (ONE TOUCH ULTRA TEST) [facility] No No Sig: QID AO and HS insulin aspart U-100 (NovoLOG) 100 unit/mL vial Yes No Sig: INJECT 90 UNITS TOTAL DAILY DOSE VIA INSULIN PUMP lisinopriL (PRINIVIL) 10 mg tablet Yes No Sig: Take 10 mg by mouth daily at bedtime. metoclopramide HCl (REGLAN) 10 mg tablet Yes No Sig: Take 10 mg by mouth 3 times daily before meals. ondansetron (ZOFRAN ODT) 4 mg Tablet, Rapid Dissolve Yes No Sig: Place 4 mg under tongue every 8 hours as needed for Nausea/Emesis. pantoprazole (PROTONIX) 40 mg Tablet, Delayed Release (E.C.) Yes No Sig: Take 40 mg by mouth daily. Facility-Administered Medications: None This medication reconciliation was completed to fullest extent possible in partnership with the patient, who is a reliable historian. Pertinent Review of Systems: Negative except as mentioned above Physical Exam: Vitals: 05/14/25 1245 05/14/25 1645 05/14/25 2100 BP: (!) 183/111 (!) 180/95 (!) 174/106 BP Location: Right arm Right arm Patient Position (BP): Sitting Sitting Pulse: 83 83 (!) 102 Resp: 18 18 Temp: 98.7 ??F (37.1 ??C) 98.7 ??F (37.1 ??C) TempSrc: Oral Oral SpO2: 100% 100% 99% Weight: 113.4 kg (250 lb) Height: 6' (1.829 m) Body mass index is 33.91 kg/m??. Vitals reviewed. A complete physical exam will be found in the H&P which will be written by my in-house partner. Labs/Imaging/Cardiac Studies: Results for orders placed or performed during the hospital encounter of 05/14/25 (from the past 24 hours) CBC WITH DIFFERENTIAL Result Value Ref Range WBC 11.2 (H) 4.0 - 9.8 K/uL RBC 4.72 4.50 - 5.40 M/uL HEMOGLOBIN 14.0 13.6 - 16.5 g/dL HEMATOCRIT 40.3 40.0 - 48.0 % MCV 85.4 82.0 - 99.0 fL MCH 29.7 27.2 - 32.6 pg MCHC 34.7 31.5 - 35.5 g/dL RDW 12.8 11.5 - 14.5 % RDW-STDEV 39.7 37.1 - 48.7 fL PLATELETS 347 140 - 350 K/uL MPV 10.9 9.3 - 12.4 fL NEUTROPHILS 81 % LYMPHOCYTES 14 % MONOCYTES 3 % EOSINOPHILS 0 % BASOPHILS 1 % IMMATURE GRANULOCYTES 0 % NEUTROPHIL ABSOLUTE 9.10 (H) 1.90 - 7.00 K/uL LYMPHOCYTE ABSOLUTE 1.59 0.70 - 4.50 K/uL MONOCYTE ABSOLUTE 0.36 0.10 - 1.30 K/uL EOSINOPHIL ABSOLUTE 0.04 0.00 - 0.70 K/uL BASOPHILS ABSOLUTE 0.07 0.00 - 0.20 K/uL IMMATURE GRANULOCYTES ABSOLUTE 0.04 (H) 0.00 - 0.03 K/uL COMPREHENSIVE METABOLIC PANEL Result Value Ref Range SODIUM 134 (L) 136 - 145 mmol/L POTASSIUM 4.5 3.5 - 5.0 mmol/L CHLORIDE 103 98 - 107 mmol/L CO2 22 22 - 29 mmol/L CALCIUM 9.2 8.6 - 10.2 mg/dL BUN 14 6 - 20 mg/dL CREATININE 1.35 (H) 0.67 - 1.17 mg/dL GLUCOSE 166 (H) 74 - 99 mg/dL TOTAL PROTEIN 7.6 6.7 - 8.6 g/dL ALBUMIN 4.1 3.5 - 5.2 g/dL BILIRUBIN TOTAL 0.3 0.0 - 1.2 mg/dL ALKALINE PHOSPHATASE 131 (H) 40 - 129 U/L AST 17 <41 U/L ALT 16 <42 U/L GFR >60 >=60 mL/min/1.73 sq meter ANION GAP 9 8 - 16 mmol/L MAGNESIUM LEVEL Result Value Ref Range MAGNESIUM 1.7 1.6 - 2.6 mg/dL PHOSPHORUS Result Value Ref Range PHOSPHORUS 2.3 (L) 2.5 - 4.5 mg/dL TROPONIN BASELINE, 5TH GEN Result Value Ref Range TROPONIN T, BASELINE 5TH GEN 14 <=15 ng/L URINALYSIS WITH REFLEX MICROSCOPIC Result Value Ref Range COLOR UA Yellow Pale to Dark Yellow CLARITY UA Clear Clear SPECIFIC GRAVITY UA 1.023 1.003 - 1.035 PH UA 5.0 5.0 - 8.0 LEUKOCYTE ESTERASE UA Negative Negative NITRITE UA Negative Negative PROTEIN UA 3+ (A) Negative GLUCOSE UA 2+ (A) Negative KETONES UA Negative Negative UROBILINOGEN UA Normal <2.0 mg/dL BILIRUBIN UA Negative Negative BLOOD UA 1+ (A) Negative WBC UA 0-2 0 - 2 /hpf RBC UA 6-10 (A) 0 - 2 /hpf BACTERIA UA Negative Negative /hpf HYALINE CAST 6-10 (A) None Seen, 0-2 /lpf DRUG SCREEN, URINE Result Value Ref Range AMPHETAMINE QUAL, URINE Negative Negative BARBITURATE QUAL, URINE Negative Negative BENZODIAZEPINE QUAL, URINE Negative Negative COCAINE QUAL URINE Negative Negative OPIATE QUAL, URINE Negative Negative CANNABINOIDS QUAL, URINE Negative Negative PCP QUAL, URINE Negative Negative OXYCODONE QUAL, URINE Negative Negative METHADONE QUAL, URINE Negative Negative FENTANYL QUAL, URINE Negative Negative CREATININE, URINE 176.0 40.0 - 278.0 mg/dL TROPONIN 2 HR, 5TH GEN Result Value Ref Range TROPONIN T, 2 HR 5TH GEN 13 <=15 ng/L DELTA 2HR TROPONIN T -1 See Interp. LIPASE Result Value Ref Range LIPASE 10 (L) 13 - 60 U/L TSH REFLEXIVE Result Value Ref Range TSH 0.39 0.27 - 4.20 uIU/mL BLOOD GAS VENOUS Result Value Ref Range PH BLOOD POC 7.31 (L) 7.32 - 7.43 PCO2 POC 44 38 - 50 mm Hg PO2 POC 35 25 - 40 mm Hg HCO3 (CALC) POC 22 22 - 29 mmol/L HEMOGLOBIN POC 13.5 (L) 13.6 - 16.5 g/dL O2 SATURATION POC 64 40 - 70 % HEMATOCRIT POC 41 40 - 48 % PH TEMP CORRECT 7.31 (L) 7.32 - 7.43 PCO2 TEMP CORRECT 44 38 - 50 mm Hg PO2 TEMP CORRECT 35 25 - 40 mm Hg SPECIMEN SOURCE, GASES POC Venous COMMENT, GASES POC Responsible Clinical Caregiver notified PATIENT'S TEMPERATURE POC 37.0 degrees Handoff provided to STLO at [facility] via secure chat. Bebe Otto MD 05/14/25 9:17 PM Adult Hospitalist [employer] To reach the vHospitalist team 24 hours a day, please place an e-Ticket through the [employer] tab in [employer] or call us directly at [phone]. * Kasandra Locke NP - 05/14/2025 6:13 PM CDT [facility] 05/14/25 6:13 PM Contacted for: New admission for n/v. Type 1 diabetic with insulin pump with n/v since yesterday. No history of gastroparesis but reporting cramping sensation in abdomen. Imaging negative and no DKA noted but getting some fluids currently. Vitals: 05/14/25 1245 05/14/25 1645 Temp: 98.7 ??F (37.1 ??C) 98.7 ??F (37.1 ??C) Pulse: 83 83 Heart Rate: 83 bpm 83 bpm BP: (!) 183/111 (!) 180/95 Resp: 18 18 SpO2: 100% 100% Intervention/Follow up/Discussion: Admission is pending and will be completed as soon as is possible. In the ER, patient received/is receiving: D5 LR, Benadryl, Reglan, Pepcid, Zofran, normal saline bolus 1 L. The following preliminary orders have been provided: -Labs: None -IVF: Getting D5 LR by ED -PRN meds: Zofran, Tylenol -Diet: clear liquid with plan to advance as tolerated to diabetic -Precautions: None Admission to follow. Please don't hesitate to contact our vHospitalist team again via e-Ticket should further needs arise in the interim. Kasandra Locke NP To reach the vHospitalist team 24 hours a day, please place an e-Ticket through the [employer] in [employer]) or call us directly at [phone]. Cosigned by Aime Freeman Ud, MD at 05/14/2025 6:48 PM CDT documented in this encounter H&P Notes * Cindy Estrada MD - 05/15/2025 9:05 AM CDT [facility] Adult Hospitalist H&P Patient Name: Park French 1990 Primary Care Doctor: Jae Martínez MD Date of Admission: 05/14/2025 Date of Service: 05/15/2025 Assessment and Plan: Nausea & vomiting, abdominal pain: CT A/P unrevealing, possible heat exhaustion/dehydration. -supportive cares, IVF, advance diet as tolerated -continue scheduled reglan, PPI DM1 on insulin pump: reports he is on 2u/hr and 1unit per 4g carb and correction scale for every 25mg -currently off pump, received 25u glargine, give 23u this AM to match basal rate -continue meal time correction Celiac disease: gluten free diet Hypomag: supplement HTN: -continue lisinopril DVT Prophylaxis Heparin Code status Full Code Disposition: This patient was admitted under Observation: Based upon the patient's clinical condition and documented clinical information, the patient is expected to require hospital care for less than 2 midnights. Chief Complaint: nausea/vomiting, abdominal pain HPI: Patient is a 34 y.o. male with PMHx of DM1 on insulin pump who presents with nausea/vomiting and abdominal pain. Pt reports his kids play sports so he was out in the heat. He began to experience nausea/vomiting, 2 days prior, progressively worsening. No diarrhea. Also began to have diffuse abdominal pain. Denies any eating any food out of the ordinary. Reports that 1 year ago, had similar episode, also related to extreme heat. Was treated in the hospital and diagnosed with celiacs. Reports he had been on a gluten free diet since and has not had any problems until now. Was not following with GI. ER course: CT abdomen/pelvis: No acute inflammatory process identified within the abdomen or pelvis. CBC- WNL except WBC 11.2, Trop T normal x 2, CMP - WNL except sodium 134, creatinine 1.35, Glu- 166, LFT normal, Venous blood Gas - Ph- 7.31, Pco2-- 44, Bicarb - 22, Po2 - 64 TSH 0.39, Urine tox screen- negative, UA: ketones negative, protein 3 plus and glucose 2plus, WBC 0-2, RBC 6-10. Hyaline casts 6-10 Since being on floor, feeling better, less nausea, tolerating liquids. Past Medical History: Diagnosis Date DM type 1 (diabetes mellitus, type 1) (CMS/HCC) GERD (gastroesophageal reflux disease) Hypertension Past Surgical History: Procedure Laterality Date HX ESOPHAGOGASTRODUODENOSCOPY N/A 06/24/2024 ESOPHAGOGASTRODUODENOSCOPY performed by Bhavani Alejandre DO at [facility] GI [facility] HX TUMOR REMOVAL benign tumor, at age of 5 Family History Problem Relation Name Age of Onset Other Mother obesity Diabetes Paternal Uncle Social History Tobacco Use Smoking status: Never Smokeless tobacco: Never Substance Use Topics Alcohol use: Not Currently Alcohol/week: 2.0 standard drinks of alcohol Types: 2 Cans of beer per week Comment: bowling on wednesday nights, last drink was over a year Prior to Admission Medications Prescriptions Last Dose Informant Patient Reported? Taking? blood sugar diagnostic (ONE TOUCH ULTRA TEST) [facility] No No Sig: QID AO and HS insulin aspart U-100 (NovoLOG) 100 unit/mL vial Yes No Sig: INJECT 90 UNITS TOTAL DAILY DOSE VIA INSULIN PUMP lisinopriL (PRINIVIL) 10 mg tablet Yes No Sig: Take 10 mg by mouth daily at bedtime. metoclopramide HCl (REGLAN) 10 mg tablet Yes No Sig: Take 10 mg by mouth 3 times daily before meals. ondansetron (ZOFRAN ODT) 4 mg Tablet, Rapid Dissolve Yes No Sig: Place 4 mg under tongue every 8 hours as needed for Nausea/Emesis. pantoprazole (PROTONIX) 40 mg Tablet, Delayed Release (E.C.) Yes No Sig: Take 40 mg by mouth daily. Facility-Administered Medications: None No Known Allergies Review of Systems: Gen: No fever or chills Pulm: No cough or SOB Cardiac: No chest pain or orthopnea GI: see hpi : No hematuria, urgency or frequency Musculoskeletal: No pain or weakness Neuro: No numbness or tingling Skin: No rashes or eruptions Physical Exam: Patient Vitals for the past 8 hrs: BP Temp Temp src Pulse Resp SpO2 05/15/25 0805 (!) 158/76 98.4 ??F (36.9 ??C) Oral 89 20 96 % 05/15/25 0513 135/67 98.2 ??F (36.8 ??C) Oral -- 18 97 % 05/15/25 0511 -- -- Oral -- -- -- General: Alert, no distress. Heart: Regular rate and rhythm, S1, S2 normal Lungs: Clear to auscultation bilaterally Abdomen: Soft, non-tender. Extremities: No clubbing, cyanosis or edema Skin: Skin color, texture, turgor normal. Data Base: Lab: Results for orders placed or performed during the hospital encounter of 05/14/25 (from the past 24 hours) CBC WITH DIFFERENTIAL Result Value Ref Range WBC 11.2 (H) 4.0 - 9.8 K/uL RBC 4.72 4.50 - 5.40 M/uL HEMOGLOBIN 14.0 13.6 - 16.5 g/dL HEMATOCRIT 40.3 40.0 - 48.0 % MCV 85.4 82.0 - 99.0 fL MCH 29.7 27.2 - 32.6 pg MCHC 34.7 31.5 - 35.5 g/dL RDW 12.8 11.5 - 14.5 % RDW-STDEV 39.7 37.1 - 48.7 fL PLATELETS 347 140 - 350 K/uL MPV 10.9 9.3 - 12.4 fL NEUTROPHILS 81 % LYMPHOCYTES 14 % MONOCYTES 3 % EOSINOPHILS 0 % BASOPHILS 1 % IMMATURE GRANULOCYTES 0 % NEUTROPHIL ABSOLUTE 9.10 (H) 1.90 - 7.00 K/uL LYMPHOCYTE ABSOLUTE 1.59 0.70 - 4.50 K/uL MONOCYTE ABSOLUTE 0.36 0.10 - 1.30 K/uL EOSINOPHIL ABSOLUTE 0.04 0.00 - 0.70 K/uL BASOPHILS ABSOLUTE 0.07 0.00 - 0.20 K/uL IMMATURE GRANULOCYTES ABSOLUTE 0.04 (H) 0.00 - 0.03 K/uL COMPREHENSIVE METABOLIC PANEL Result Value Ref Range SODIUM 134 (L) 136 - 145 mmol/L POTASSIUM 4.5 3.5 - 5.0 mmol/L CHLORIDE 103 98 - 107 mmol/L CO2 22 22 - 29 mmol/L CALCIUM 9.2 8.6 - 10.2 mg/dL BUN 14 6 - 20 mg/dL CREATININE 1.35 (H) 0.67 - 1.17 mg/dL GLUCOSE 166 (H) 74 - 99 mg/dL TOTAL PROTEIN 7.6 6.7 - 8.6 g/dL ALBUMIN 4.1 3.5 - 5.2 g/dL BILIRUBIN TOTAL 0.3 0.0 - 1.2 mg/dL ALKALINE PHOSPHATASE 131 (H) 40 - 129 U/L AST 17 <41 U/L ALT 16 <42 U/L GFR >60 >=60 mL/min/1.73 sq meter ANION GAP 9 8 - 16 mmol/L MAGNESIUM LEVEL Result Value Ref Range MAGNESIUM 1.7 1.6 - 2.6 mg/dL PHOSPHORUS Result Value Ref Range PHOSPHORUS 2.3 (L) 2.5 - 4.5 mg/dL TROPONIN BASELINE, 5TH GEN Result Value Ref Range TROPONIN T, BASELINE 5TH GEN 14 <=15 ng/L URINALYSIS WITH REFLEX MICROSCOPIC Result Value Ref Range COLOR UA Yellow Pale to Dark Yellow CLARITY UA Clear Clear SPECIFIC GRAVITY UA 1.023 1.003 - 1.035 PH UA 5.0 5.0 - 8.0 LEUKOCYTE ESTERASE UA Negative Negative NITRITE UA Negative Negative PROTEIN UA 3+ (A) Negative GLUCOSE UA 2+ (A) Negative KETONES UA Negative Negative UROBILINOGEN UA Normal <2.0 mg/dL BILIRUBIN UA Negative Negative BLOOD UA 1+ (A) Negative WBC UA 0-2 0 - 2 /hpf RBC UA 6-10 (A) 0 - 2 /hpf BACTERIA UA Negative Negative /hpf HYALINE CAST 6-10 (A) None Seen, 0-2 /lpf DRUG SCREEN, URINE Result Value Ref Range AMPHETAMINE QUAL, URINE Negative Negative BARBITURATE QUAL, URINE Negative Negative BENZODIAZEPINE QUAL, URINE Negative Negative COCAINE QUAL URINE Negative Negative OPIATE QUAL, URINE Negative Negative CANNABINOIDS QUAL, URINE Negative Negative PCP QUAL, URINE Negative Negative OXYCODONE QUAL, URINE Negative Negative METHADONE QUAL, URINE Negative Negative FENTANYL QUAL, URINE Negative Negative CREATININE, URINE 176.0 40.0 - 278.0 mg/dL TROPONIN 2 HR, 5TH GEN Result Value Ref Range TROPONIN T, 2 HR 5TH GEN 13 <=15 ng/L DELTA 2HR TROPONIN T -1 See Interp. LIPASE Result Value Ref Range LIPASE 10 (L) 13 - 60 U/L TSH REFLEXIVE Result Value Ref Range TSH 0.39 0.27 - 4.20 uIU/mL BLOOD GAS VENOUS Result Value Ref Range PH BLOOD POC 7.31 (L) 7.32 - 7.43 PCO2 POC 44 38 - 50 mm Hg PO2 POC 35 25 - 40 mm Hg HCO3 (CALC) POC 22 22 - 29 mmol/L HEMOGLOBIN POC 13.5 (L) 13.6 - 16.5 g/dL O2 SATURATION POC 64 40 - 70 % HEMATOCRIT POC 41 40 - 48 % PH TEMP CORRECT 7.31 (L) 7.32 - 7.43 PCO2 TEMP CORRECT 44 38 - 50 mm Hg PO2 TEMP CORRECT 35 25 - 40 mm Hg SPECIMEN SOURCE, GASES POC Venous COMMENT, GASES POC Responsible Clinical Caregiver notified PATIENT'S TEMPERATURE POC 37.0 degrees POC GLUCOSE Result Value Ref Range GLUCOSE POC 177 (H) 74 - 99 mg/dL SPECIMEN SOURCE, GLUCOSE POC Whole Blood COMMENT, GLU POC Notified RN/MD TROPONIN 6 HR, 5TH GEN Result Value Ref Range TROPONIN T, 6 HR 5TH GEN 22 (H) <=15 ng/L DELTA 6HR TROPONIN T 8 See Interp. POC GLUCOSE Result Value Ref Range GLUCOSE POC 161 (H) 74 - 99 mg/dL SPECIMEN SOURCE, GLUCOSE POC Whole Blood COMMENT, GLU POC Notified RN/ MAGNESIUM LEVEL Result Value Ref Range MAGNESIUM 1.4 (L) 1.6 - 2.6 mg/dL CBC WITHOUT DIFFERENTIAL Result Value Ref Range WBC 14.2 (H) 4.0 - 9.8 K/uL RBC 4.63 4.50 - 5.40 M/uL HEMOGLOBIN 13.6 13.6 - 16.5 g/dL HEMATOCRIT 39.0 (L) 40.0 - 48.0 % MCV 84.2 82.0 - 99.0 fL MCH 29.4 27.2 - 32.6 pg MCHC 34.9 31.5 - 35.5 g/dL PLATELETS 369 (H) 140 - 350 K/uL MPV 11.2 9.3 - 12.4 fL RDW 12.8 11.5 - 14.5 % RDW-STDEV 38.7 37.1 - 48.7 fL COMPREHENSIVE METABOLIC PANEL Result Value Ref Range SODIUM 136 136 - 145 mmol/L POTASSIUM 3.9 3.5 - 5.0 mmol/L CHLORIDE 102 98 - 107 mmol/L CO2 23 22 - 29 mmol/L CALCIUM 8.9 8.6 - 10.2 mg/dL BUN 13 6 - 20 mg/dL CREATININE 1.19 (H) 0.67 - 1.17 mg/dL GLUCOSE 154 (H) 74 - 99 mg/dL TOTAL PROTEIN 6.9 6.7 - 8.6 g/dL ALBUMIN 3.8 3.5 - 5.2 g/dL BILIRUBIN TOTAL 0.4 0.0 - 1.2 mg/dL ALKALINE PHOSPHATASE 118 40 - 129 U/L AST 17 <41 U/L ALT 15 <42 U/L GFR >60 >=60 mL/min/1.73 sq meter ANION GAP 11 8 - 16 mmol/L POC GLUCOSE Result Value Ref Range GLUCOSE POC 262 (H) 74 - 99 mg/dL SPECIMEN SOURCE, GLUCOSE POC Whole Blood COMMENT, GLU POC Notified RN/MD Cindy Estrada MD Please contact me via [employer] Secure Chat from 7am-7pm After hours please place E-ticket to [facility] documented in this encounter ED Notes * Trang Scott RN - 05/14/2025 7:23 PM CDT Report taken from LULY Rapp all questions answered. This RN assumes care at this time. * Marcelina Joseph RT - 05/14/2025 5:40 PM CDT Images from the original note were not included. ST[facility] IMS Medication and Flush Protocol- CT and MRI Procedures [facility] Approved by: -Medical Executive Committee Approval Date: 05/08/2025 ORDERS ARE ENTERED ???PER PROTOCOL?? Enter the protocol in the patient's electronic health record using [employer]: .imagingctmriprAscendx Spine Communication Orders: For ordered imaging procedures requiring intravenous access: Initiate a peripheral IV, if not already in place, and discontinue IV prior to discharge (if outpatient). Enter order if needed: Insert Peripheral IV Bariatric Oral Contrast: Post-surgical bariatric patients will have markedly reduced ability to drink normal quantities of liquid. Four ounces will be the maximum amount or less if the patient cannot comfortably tolerate. Cancel oral contrast if patient is nauseated or vomiting. Water based contrast only. Medication Orders: Local Anesthetic for use to initiate IV ADULT Lidocaine 4% (L.M.X.4) applied topically ONE TIME prior to IV catheter insertion PRN (L.M.X.4 % should be applied 15 minutes prior to procedure) PEDIATRIC Lidocaine 4% (L.M.X.4) applied topically ONE TIME prior to IV catheter insertion PRN (apply 30 minutes prior to procedure) Sucrose 24% (Squirts) given PO prior to IV catheter insertion (administer 1 - 2 minutes prior to procedure) OR Sucrose 24% (Tootsweet; Sweet-Ease) oral solution 0.2 mL oral (apply to tongue on pacifier or clean, gloved finger), ONE TIME 2 minutes prior to painful procedure. May repeat dose x1 PRN to complete procedure. Sodium chloride 0.9% (normal saline) flush 10 mL PRN for saline lock or medication administration. For respiratory distress, initiate oxygen and/or increase O2 to maintain saturation greater than 90% For all invasive procedures: obtain Lidocaine 1% for intra-procedure administration. If Lidocaine 1% unavailable, may substitute Lidocaine 2%. CT PROCEDURES PROCEDURE SPECIFIC CT MEDICATIONS *Any exceptions to these contrast protocols must be approved by a Radiologist and documented in theEHR Progress Notes. When multiple medications are listed with the comment ???OR?? them, select the first option until challenges from product availability make this option unavailable. Cystogram (CT Pelvis): Iopamidol (Isovue 300) 61%, 50 mL, diluted with 250mL of sterile NS. Inject Isovue into 250 mL bag of NS. Clamp hayes catheter prior to instilling solution via catheter. Instill up to 300 mL of Isovue and NS solution into bladder via catheter, one time. CT Enterography: Oral flavored beverage for neutral imaging (Breeza) ADULTS: 500 mL Breeza 1 hour before scan 500 mL Breeza 40 minutes before scan 250 mL Breeza 20 minutes before scan 250 mL Breeza just before scan PEDS: 500 mL Breeza [address] ORAL CONTRAST PROTOCOLS FOR ADULTS Use Iopamidol (Isovue 300) 300 mg/mL OR Iohexol (Omnipaque) 240 mg/mL (SUBJECT TO AVAILABILITY) forCT scan unless patient has a documented allergy to contrast dye. If at any time the [employer] has a question about which option to administer, seek clarification from a Radiologist. If allergy present, use Barium Sulfate (EZ Paque) for procedure. Administer 960 mL of the diluted Isovue 300 OR Omnipaque 240 (SUBJECT TO AVAILABILITY, orally, one time only Iopamidol (Isovue 300) 300mg/ml: 30ml added to 960mL of clear liquid of patient's choice. Preferredroute is oral. May use nasoenteric tube if needed. Utilize the following administration instructions when there is a need to conserve contrast 15 mL of Iopamidol (Isovue 300) split into two cups (7.5 mL in each cup) Dilute as usual with 960 mL of clear liquid of patient's choice (480 mL in each cup) Have patient drink one cup an hour before the test, wait 30 minutes then start to drink the next cup, leaving a little over an inch in the bottom of the second cup. As the technologist is getting thepatient from the waiting room after an hour, have the patient finish the rest of the second cup so it can coat and fill the stomach OR Iohexol (Omnipaque) 240 mg/mL: 50ml added to 960mL of clear liquid of patient's choice. Preferred route is oral. May use nasoenteric tube if needed. (SUBJECT TO AVAILABILITY) Administer 900mL of the diluted Omnipaque 240, orally, one time only. Barium Sulfate (EZ Paque /Vanilla Silq) 96% oral suspension: Preferred route is oral. May use nasoenteric tube if needed. Administer 900mL of barium sulfate, orally, one time only. Bariatric Patient: Post-Surgery to 1 year- 50 mL total volume. NO carbonated liquids lopamidol (Isovue 300) 300 mg/mL: mixed with water. Draw 50 mL of mixed solution for patient. Preferred route is orally. May use nasoenteric tube if needed. OR lohexol (Omnipaque) 240 mg/mL: mixed with water. Draw 50mL of mixed solution for patient. Preferredroute is orally. May use nasoenteric tube if needed. (SUBJECT TO AVAILABILITY) After 1 year- no more than 236 mL (8oz) total volume. NO carbonated liquids. lopamidol (Isovue 300) 300 mg/mL: mixed with water OR lohexol (Omnipaque) 240 mg/mL: mixed with water (SUBJECT TO AVAILABILITY) CT ORAL CONTRAST PROTOCOLS FOR PEDIATRICS Pediatrics = up to age 18 Pediatric Radiologist will approve of one of the following products selected for procedure. Barium Sulfate (EZ Paque) 96% oral suspension: preferred route is oral. May use nasoenteric tube ifneeded. Tracy to 3 months Administer up to 90mL of Barium sulfate, orally, one time only 4 months to 1 year old Administer up to 240mL of Barium sulfate, Orally, One Time Only 1 year old to 5 years old Administer up to 360mL of Barium sulfate, Orally, One Time Only 5 years old to 10 years old Administer up to 480mL of Barium sulfate, Orally, One Time Only Over 10 years old Administer up to 600mL of Barium sulfate, Orally, One Time Only Iopamidol (Isovue 300) 300 mg/mL oral solution Dilute 25mL of Iohexol with 480mL of clear liquid of patient's choice. Administer the diluted solution per age as follows: Preferred route is orally. May use nasoenteric tube if needed. Send any remaining diluted Iohexol solution with the patient's nurse to CT Iopamidol (Isovue) 300 mg/ml oral solution age appropriate guidelines Administer 45mL of diluted Iopamidol oral solution, orally every 30 minutes x 2 doses. 1 month to 1 year old Administer 120mL of diluted Iopamidol oral solution, orally every 30 min x 2 doses. 1 year old to 5 years old Administer 180mL of diluted Iopamidol oral solution, orally every 30 min x 2 doses. 5 years old to 10 years old Administer 240mL of diluted Iopamidol oral solution, orally every 30 min x 2 doses. Over 10 years old Administer 245mL of diluted Iopamidol oral solution, orally every 30 min x 2 doses. OR Iohexol (Omnipaque) 240 mg/mL oral solution Dilute 25mL of Iohexol with 480mL of clear liquid of patient's choice. Administer the diluted solution per age as follows: Preferred route is orally. May use nasoenteric tube if needed. Send any remaining diluted Iohexol solution with the patient's nurse to CT Iohexol (Omnipaque) 240mg/ml oral solution age appropriate guidelines Administer 45mL of diluted Iohexol oral solution, orally every 30 minutes x 2 doses. 1 month to 1 year old Administer 120mL of diluted Iohexol oral solution, orally every 30 min x 2 doses. 1 year old to 5 years old Administer 180mL of Iohexol orally every 30 min x 2 doses. 5 years old to 10 years old Administer 240mL of Iohexol orally every 30 min x 2 doses. Over 10 years old Administer 250mL of Iohexol orally every 30 min x [address] RECTAL CONTRAST PROTOCOLS ADULTS: Iopamidol (Isovue) 300 mg/mL: Dilute 30mL of Isovue with 900mL of warm water in an enema bag. Administer the diluted solution rectally via gravity per patient's tolerance, up to 950mLs, one time only. OR Iohexol (Omnipaque) 240 mg/mL: Dilute 50mL of Omnipaque with 900mL of warm water in an enema bag. Administer the diluted solution rectally via gravity per patient's tolerance, up to 950mLs, one time only. CT IV CONTRAST PROTOCOLS for ADULT ADULTS: (If patient is less than 55kg and confirm dose with radiologist) Iopadmidol (Isovue-300): Administer 2.2mL/kg of Iopamidol 61%, intravenously, one time only. See table below for maximum dose, unless otherwise authorized by radiologist. If exam has been completed before the entire dose has been administered, stop the injection. Multiple doses of iodine contrast within a 24-hour period are a risk factor for KATHE and should be avoided if possible. Emergent or other unusual circumstances where multiple doses of contrast are required in a short interval time should prompt consideration by the referring professional and radiologist to discuss the risks and benefits of contrast media administration. If exam not included in table below, contact radiologist for orders. Procedure Maximum Dose CT Head with Contrast Up to [address] Chest with Contrast Up to [address] Maxillofacial with Contrast Up to [address] Soft Tissue Neck with Contrast CT Chest Abdomen Pelvis with Contrast CT Chest Abdomen with Contrast CT Abdomen Pelvis with Contrast CT Pelvis with Contrast CT Angiogram Examinations (all) CT Soft Tissue Neck and Chest Abdomen Pelvis with Contrast Up to [address] Soft Tissue Neck and Chest with Contrast CT Urogram with Contrast CT IV CONTRAST PROTOCOLS for PEDIATRICS PEDIATRICS: Use weight-based dosing if patient is less than 55kg and confirm dose with radiologist. Tracy to 15 years old Administer 2.2mL/kg (to MAX of 80 mL) of Iopamidol (Isovue-300) 61%, intravenously, one time only 15 years old and older Administer 2.2mL/kg (to MAX of 150mL) of Iopamidol (Isovue-300) 61%, intravenously, one time only PROCEDURE SPECIFIC MRI MEDICATIONS: MRI ENTEROGRAPHY: GLUGACON ADMINISTRATION Nurse will enter the following medication orders for MRI Enterography if not otherwise ordered. ADULTS: (patient 18 years or older) If the patient is diabetic, call the radiologist to verify administration of Glucagon For Outpatients: Patient will receive 2 doses of Glucagon one dose 0.5mg IM administered by nurse prior to the MRI exam beginning 2nd dose 0.5mg IV prior to the IV contrast being administered. For Inpatients: Patient will receive 1 dose of Glucagon 1 mg IV, administered by nurse prior to thestarting the MRI exam. PEDIATRICS: If the patient is diabetic call the radiologist to verify administration of Glucagon Outpatient pediatric patient: Pediatric patient weighing 24.9 kg or less should have one dose of Glucagon 0.5mg IM administered by nurse prior to MRI exam beginning. Pediatric patient weighing 25 kg or greater should have one dose of Glucagon 1 mg IM administered by nurse prior to the MRI exam beginning. Inpatient pediatric patient: Pediatric patient weighing 24.9 kg or less should have one dose of Glucagon 0.5 mg IV administered by nurse prior to MRI exam beginning. Pediatric patient weighing 25 kg or greater should have one dose of Glucagon 1 mg IV administered by nurse prior to the MRI exam beginning. MRI ENTEROGRAPHY: BREEZA ADMINISTRATION Oral flavored beverage for neutral abdominal imaging (Breeza) ADULTS: (17 y/o and up) 500 mL Breeza 1 hour prior to scan 500 mL Breeza 30 min prior to scan PEDIATRICS: 500 mL Breeza 1 hour prior to scan MRI UROGRAM: LASIX ADMINISTRATION Nurse will enter the following medication orders for MRI Urogram if not otherwise ordered. ADULTS: Call radiologist with any questions regarding administration of Lasix Lasix 0.1mg per kg with a minimum dose of Lasix 5mg IV being given up to a max dose of Lasix 10mg IV being given. The Lasix should be administered by nurse prior to the IV contrast being administered. (Hold Lasix if: obstruction, anuria and hypersensitivity to furosemide, and electrolyte imbalance or hypotension should be corrected by nurse before administering) MRI IV CONTRAST PROTOCOLS ADULTS: Multihance and Prohance can be used for most MRI scans Prohance should be used primarily. Multihance is useful in specific circumstances as directed by the radiologist or per the appropriate sections established protocols. Group I gadolinium contrast agents shall not be administered. Generally, multiple doses of gadolinium contrast should not be administered within a 24-hour period. In emergent or other unusual circumstances where this is necessary, only Group II agents should beadministered. For Liver Studies: Contact radiologist to determine use of one of the following: Gadobenate Dimeglumine (Multihance) (0.1mmol/0.2mL), Administer 0.1mmol/kg = 0.2mL/kg up to MAX of 20 mL, intravenously, one time only Gadoteridol (Prohance) (0.1mmol/0.2mL), Administer 0.1mmol/kg = 0.2mL/kg up to MAX of 20mL, intravenously, one time only Gadoxetate (Eovist) (2.5 mmol/10mL), Administer 0.025mmol/kg = 0.1mL/kg up to MAX of 10mL, intravenously, one time only Gadopicienol (Vueway), Administer 0.05 mmo/kg=0.1 mL/kg up to max of 15 mL, intravenously, one timeonly PEDIATRICS: Radiologist to determine need for contrast Term neonates up to 2 years: Gadobuterol (Gadavist) (1mmol/mL injection), Administer 0.1mmol/kg = 0.1mL/kg up to MAX of 14mmol=14mL, intravenously, one time only OR Gadobenate Dimeglumine (Multihance) (0.1mmol/mL), Administer 0.1mmol/kg = 0.1mL/kg up to MAX of 14mmol = 14mL, intravenously, one time only 2 years and older Gadobenate Dimeglumine (Multihance) (0.1mmol/0.2mL), Administer 0.1mmol/kg = 0.2mL/kg up to MAX of 20mL, intravenously, one time only OR Gadoteridol (Prohance) (0.1mmol/0.2mL), Administer 0.1mmol/kg = 0.2mL/kg up to MAX of 20mL, intravenously, one time only TABLE 1. ACR Manual Classification of Gadolinium-Based Agents Relative to Nephrogenic Systemic Fibrosis Group I: Agents associated with the greatest number of NSF cases: Gadodiamide (Omniscan?? - fanatix) Gadopentetate dimeglumine (Magnevist?? - [employer]) Gadoversetamide (OptiMARK?? - Guerbet) Group II: Agents associated with few, if any, unconfounded cases of NSF: Gadobenate dimeglumine (MultiHance?? - [employer]) Gadobutrol (Gadavist?? - [employer]; Gadovist in many countries) Gadoteric acid (Dotarem?? - Guerbet, Clariscan - fanatix) Gadoteridol (ProHance?? - [employer]) Gadoxetate disodium (Eovist - [employer]; Primovist in many countries) Gadopiclenol (Vueway - [employer]) * Lauri Gallardo MD - 05/14/2025 3:14 PM CDT PHYSICIAN IN TRIAGE NOTE: The patient was seen in my role as a physician in triage. The physician in triage role is designed to expedite the initial diagnostic workup and does not substitute for a full emergency department evaluation. Triage order, wait times, DWAIN levels and traditional triage proce dures are outside the scope of this role. CC/Brief history prompting ED presentation: Patient presents emergency department with 1 day history of frequent nausea and a sense of feeling that he is dehydrated. He has had some chills but no fevers. He endorses generalized abdominal cramping and no back pain. He has a past medical history to include celiac disease and diabetes mellitus.He has no chest pain, dyspnea, back pain, or other recent illness or injury Pertinent Physical Exam findings: Not toxic nor acutely ill-appearing. Hemodynamically stable. Patient has a normal heart examination. He has some mild generalized tenderness without rebound or guarding. No lower abdominal tenderness whatsoever. Plan: Lab testing and imaging has been ordered while he is in the emergency department to facilitate further evaluation while he is awaiting a bed in the emergency department. The patient will be moved to ED when a room is available. * Keegan Jones DO - 05/14/2025 12:30 PM CDTAssociated Order(s): Critical Care HISTORY OF PRESENT ILLNESS Mr. FrenchAbnz-[id number]-old type I diabetic presents with nausea and vomiting. Patient states that this started yesterday and just progressively is worsened. Patient denies any fever or chills. No ingestion. No travel. Patient has had nausea/vomiting with no diarrhea. Patient's blood sugars have been controlled he is on insulin pump he is a type I diabetic. Patient denies any headache or blurred vision.No chest pain or chest pressure. No shortness of breath. No cough. Patient has had abdominal cramping which radiates into his flanks. No hematuria. No leg pain no falls or trauma. Patient has historyof type 1 diabetes as mentioned, insulin pump, renal insufficiency, episodic constipation. Nausea PAST MEDICAL HISTORY REVIEWED MEDICAL: Patient has a past medical history of DM type 1 (diabetes mellitus, type 1) (CMS/HCC). SURGICAL: Patient has a past surgical history that includes tumor removal and esophagogastroduodenoscopy (N/A, 06/24/2024). ALLERGIES Patient has no known allergies. PHYSICAL EXAM INITIAL VS BP: (!) 183/111 (RN Notified) (05/14/25 1245), Heart Rate: 83 bpm (05/14/25 1245), Resp: 18 (05/14/25 1245), Pulse: 83 (05/14/25 1245), Temp: 98.7 ??F (37.1 ??C) (05/14/25 124), Temp src: Oral (05/14/25 124), SpO2: 100 % (05/14/25 124), Height: 6' (182.9 cm) (05/14/25 1245), Weight: 113.4 kg (250 lb) (05/14/25 124), BMI (Calculated): (!) 33.9 (05/14/25 124) No LMP for male patient. Physical Exam Vitals reviewed. Constitutional: Comments: Uncomfortable appearing-- HENT: Head: Normocephalic and atraumatic. Right Ear: External ear normal. Left Ear: External ear normal. Nose: Nose normal. Eyes: Conjunctiva/sclera: Conjunctivae normal. Pupils: Pupils are equal, round, and reactive to light. Neck: Thyroid: No thyromegaly. Vascular: No JVD. Trachea: No tracheal deviation. Cardiovascular: Rate and Rhythm: Normal rate and regular rhythm. Pulmonary: Effort: Pulmonary effort is normal. Breath sounds: Normal breath sounds. No stridor. Abdominal: General: Bowel sounds are normal. There is no distension. Palpations: Abdomen is soft. There is no mass. Tenderness: There is no abdominal tenderness. There is no guarding or rebound. Hernia: No hernia is present. Comments: No pulsatile mass Musculoskeletal: General: No swelling, tenderness, deformity or signs of injury. Cervical back: Normal range of motion and neck supple. Right lower leg: No edema. Left lower leg: No edema. Lymphadenopathy: Cervical: No cervical adenopathy. Skin: General: Skin is warm and dry. Neurological: Mental Status: He is alert and oriented to person, place, and time. Cranial Nerves: No cranial nerve deficit. Sensory: No sensory deficit. Motor: No abnormal muscle tone. Coordination: Coordination normal. Deep Tendon Reflexes: Reflexes normal. Comments: Mental status: Awake, alert, oriented x 3. Higher Cerebral Function: speech - Non-aphasic (normal) Cranial Nerves: II - Visual feng intact III, IV, - Extraocular movement intact. Pupils equal, round & reactive to light V/VII - Facial sensation intact and symmetric with normal strength VIII, IX, X - Hearing not tested, normal swallow and gag XI - Normal trapezius strength via shoulder shrug and head rotation XII - No tongue deviation on protrusion Motor Function: Right upper extremity 5 - Normal Strength Left upper extremity 5 - Normal Strength Right lower extremity 5 - Normal Strength Left lower extremity 5 - Normal Strength Sensory Function: Right upper extremity - Normal sensation Left upper extremity - Normal sensation Right lower extremity - Normal sensation Left lower extremity - Normal sensation Coordination: Normal finger to nose Gait: normal gait Psychiatric: Behavior: Behavior normal. DIAGNOSTICS LAB: CBC WITH DIFFERENTIAL - Abnormal Result Value WBC 11.2 (*) RBC 4.72 HEMOGLOBIN 14.0 HEMATOCRIT 40.3 MCV 85.4 MCH 29.7 MCHC 34.7 RDW 12.8 RDW-STDEV 39.7 PLATELETS 347 MPV 10.9 NEUTROPHILS 81 LYMPHOCYTES 14 MONOCYTES 3 EOSINOPHILS 0 BASOPHILS 1 IMMATURE GRANULOCYTES 0 NEUTROPHIL ABSOLUTE 9.10 (*) LYMPHOCYTE ABSOLUTE 1.59 MONOCYTE ABSOLUTE 0.36 EOSINOPHIL ABSOLUTE 0.04 BASOPHILS ABSOLUTE 0.07 IMMATURE GRANULOCYTES ABSOLUTE 0.04 (*) COMPREHENSIVE METABOLIC PANEL - Abnormal SODIUM 134 (*) POTASSIUM 4.5 CHLORIDE 103 CO2 22 CALCIUM 9.2 BUN 14 CREATININE 1.35 (*) GLUCOSE 166 (*) TOTAL PROTEIN 7.6 ALBUMIN 4.1 BILIRUBIN TOTAL 0.3 ALKALINE PHOSPHATASE 131 (*) AST 17 ALT 16 GFR >60 ANION GAP 9 URINALYSIS WITH REFLEX MICROSCOPIC - Abnormal COLOR UA Yellow CLARITY UA Clear SPECIFIC GRAVITY UA 1.023 PH UA 5.0 LEUKOCYTE ESTERASE UA Negative NITRITE UA Negative PROTEIN UA 3+ (*) GLUCOSE UA 2+ (*) KETONES UA Negative UROBILINOGEN UA Normal BILIRUBIN UA Negative BLOOD UA 1+ (*) WBC UA 0-2 RBC UA 6-10 (*) BACTERIA UA Negative HYALINE CAST 6-10 (*) PHOSPHORUS - Abnormal PHOSPHORUS 2.3 (*) BLOOD GAS VENOUS - Abnormal PH BLOOD POC 7.31 (*) PCO2 POC 44 PO2 POC 35 HCO3 (CALC) POC 22 HEMOGLOBIN POC 13.5 (*) O2 SATURATION POC 64 HEMATOCRIT POC 41 PH TEMP CORRECT 7.31 (*) PCO2 TEMP CORRECT 44 PO2 TEMP CORRECT 35 SPECIMEN SOURCE, GASES POC Venous COMMENT, GASES POC Responsible Clinical Caregiver notified PATIENT'S TEMPERATURE POC 37.0 MAGNESIUM LEVEL - Normal MAGNESIUM 1.7 TROPONIN BASELINE, 5TH GEN - Normal TROPONIN T, BASELINE 5TH GEN 14 TROPONIN 2 HR, 5TH GEN - Normal TROPONIN T, 2 HR 5TH GEN 13 DELTA 2HR TROPONIN T -1 DRUG SCREEN, URINE - Normal AMPHETAMINE QUAL, URINE Negative BARBITURATE QUAL, URINE Negative BENZODIAZEPINE QUAL, URINE Negative COCAINE QUAL URINE Negative OPIATE QUAL, URINE Negative CANNABINOIDS QUAL, URINE Negative PCP QUAL, URINE Negative OXYCODONE QUAL, URINE Negative METHADONE QUAL, URINE Negative FENTANYL QUAL, URINE Negative CREATININE, URINE 176.0 TSH REFLEXIVE - Normal TSH 0.39 LIPASE RADIOLOGY: CT ABDOMEN PELVIS W CONTRAST Radiologist Impression IMPRESSION: 1. No acute inflammatory process identified within the abdomen or pelvis. DICTATION LOCATION: Location 1 [facility] EKG: Time 1644, normal sinus rhythm 79, PA interval 0.14, QRS 0.09, QT 0.37, no ST elevation/no STEMI PROCEDURES Critical Care Performed by: Keegan Jones DO Authorized by: Keegan Jones DO Critical care provider statement: Critical care time (minutes): 35 Critical care time was exclusive of: Separately billable procedures and treating other patients Critical care was necessary to treat or prevent imminent or life-threatening deterioration of the following conditions: Dehydration Critical care was time spent personally by me on the following activities: Development of treatmentplan with patient or surrogate, evaluation of patient's response to treatment, ordering and performing treatments and interventions, ordering and review of laboratory studies, ordering and review of radiographic studies, pulse oximetry, re-evaluation of patient's condition, review of old charts, examination of patient, obtaining history from patient or surrogate and discussions with consultants I assumed direction of critical care for this patient from another provider in my specialty: no Care discussed with: admitting provider MEDICAL DECISION MAKING AND PLAN OF CARE ED Course as of 05/14/25 1819 WedMay 14, 2025 1807 EKG 7.3/44. TSH normal. Troponin normal x 2, drug screen negative. Urine illustrates no acute findings. White count slightly elevated 11,000. Demargination from vomiting. CMP blood sugar 166. Creatinine 1.3. CT reviewed with no acute base findings. Will admit for 23 observation for IV hydration and antiemetics. Patient has had no diarrhea. [PP] ED Course User Index [PP] Keegan Jones, DO Medical Decision Making Amount and/or Complexity of Data Reviewed Labs: ordered. Radiology: ordered. ECG/medicine tests: ordered. Risk Prescription drug management. Decision regarding hospitalization. Clinical Scoring & Consults Medications Administered During the ED Stay from 05/14/2025 1230 to 05/14/2025 1819 Date/Time Order Dose Route Action 05/14/2025 1548 CDT sodium chloride 0.9 % bolus solution 1,000 mL 0 mL IV Stopped 05/14/2025 1518 CDT sodium chloride 0.9 % bolus solution 1,000 mL 1,000 mL IV New Bag 05/14/2025 1519 CDT ondansetron (ZOFRAN) 4 mg/2 mL injection 4 mg 4 mg IV Given 05/14/2025 1740 CDT iopamidoL (ISOVUE-300) 61% injection (drawn from multi-use bulk pack) 100 mL 100 mL IV Contrast Given 05/14/2025 1740 CDT sodium chloride flush injection 10 mL 10 mL IV Given 05/14/2025 1811 CDT ondansetron (ZOFRAN) 4 mg/2 mL injection 4 mg 4 mg IV Given 05/14/2025 1811 CDT famotidine PF (PEPCID) 20 mg/2 mL injection 20 mg 20 mg IV Given . New Prescriptions for this Encounter LAST VS BP: (!) 180/95 (05/14/251644), Heart Rate: 83 bpm (05/14/251644), Resp: 18 (05/14/251644), Pulse: 83 (05/14/251644), Temp: 98.7 ??F (37.1 ??C) (05/14/251644), Temp src: Oral (05/14/251644), SpO2: 100 % (05/14/251644) CLINICAL IMPRESSION Final diagnoses: [R11.2] Nausea and vomiting, unspecified vomiting type (Primary) [E10.9] Type 1 diabetes mellitus without complication ([facility]) DISPOSITION, EDUCATION AND MEDICATION RECONCILIATION Medications reconciled. See after visit summary for patient education on discharged patients. ED Disposition ED Disposition Admit Condition Stable User Keegan Jones DO Date/Time WedMay 14, 2025 6:09 PM Comment -- ATTESTATION STATEMENTS documented in this encounter Miscellaneous Notes * Care Plan - Kerri Martin RN - 05/15/2025 1:54 PM CDT Discharge orders received for patient. Patient agreeable to discharge. Discharge instructions reviewed with patient and all questions answered. IV removed. Discharge paperwork given to patient. Shift Summary Abnormal blood pressure was noted in the morning, and the nurse was notified. High glucose levels were recorded in the morning and afternoon. Magnesium sulfate was administered in the morning. Insulin lispro was refused at noon, with the patient planning to self-dose at home. Discharge was planned for as soon as possible, with hygiene care provided in preparation. Safety/Fall: Absence of fall, injury, harm during hospitalization: Safety checks were completed, and the fall risk was assessed as low with no incidents reported during the shift. Identify discharge needs upon admission and through discharge: Discharge was planned for as soon aspossible, and hygiene care was provided in preparation for discharge. Achieve optimal nutrition and fluid status to meet metabolic needs throughout hospitalization: Intake decreased significantly from breakfast to lunch, with a noted abnormal intake at lunch. * Gen AI ED Handoff - GENERATIVE AI HANDOFF NOTE - 05/14/2025 9:45 PM CDT SITUATION: Patient ( ) is a 34-year-old male who has been in the ER for 9 hours. He came to the ER due to nausea. The patient's most recent care team on record included: Trang Scott. BACKGROUND: Drips the patient are on include: dextrose, last started at 2025-05-14 18:32:00. This patient has no known allergies. ASSESSMENT: Patient's most recent vitals recorded in flowsheets were as follows: BP: 174/106 T: 98.8 F RR: 18 SPO2: 99% HR: 83 WT: 250.0 LBS BMI: 33.91 Most recent Glucose Value: 166. Completed: 2025-05-14 14:56. Lines most recently placed include: angiocath at 2025-05-14 14:03. Last recorded oxygen source was room air. The patient, Park French, is a 34-year-old male with a history of type 1 diabetes mellitus, GERD, and hypertension. He presents with nausea, vomiting, and abdominal pain. He has elevated blood pressure readings and abnormal lab results including elevated creatinine, glucose, and protein in urine, suggesting possible renal issues. The patient has a BMI of 33.91 kg/m??, indicating obesity. RECOMMENDATION: Administer antiemetics and IV fluids for nausea and vomiting. Start Protonix IV for possible GERD exacerbation. Turn off insulin pump and administer Lantus 25 units nightly, insulin lispro for prandial and sliding scale coverage. Monitor blood pressure and continue lisinopril 10 mg for renal protection. Follow a clear liquid diet initially, with plans to advance as tolerated to a diabetic diet. Provide DVT prophylaxis with heparin. Monitor renal function and consider possible glomerulonephritis due to longstanding diabetes. Discharge home once medically stable. *This summary was created by [employer]. The responses are meant to enhance, not replace normal workflow. Please contact the ED nurse for any additional information.* Electronically signed by Chetan Hinojosa [employer] Commissioner Incoming at 05/14/2025 10:13 PM CDT documented in this encounter Plan of Treatment Not on file documented as of this encounter Procedures Procedure Name Priority Date/Time Associated Diagnosis Comments POC GLUCOSE Routine 05/15/2025 12:24 PM CDT POC GLUCOSE Routine 05/15/2025 8:57 AM CDT POC GLUCOSE Routine 05/15/2025 5:16 AM CDT CBC WITHOUT DIFFERENTIAL Routine 05/15/2025 1:09 AM CDT MAGNESIUM LEVEL Routine 05/15/2025 1:09 AM CDT COMPREHENSIVE METABOLIC PANEL Routine 05/15/2025 1:09 AM CDT POC GLUCOSE Routine 05/15/2025 12:42 AM CDT TROPONIN 6 HR, 5TH GEN Timed Study 05/14/2025 10:50 PM CDT POC GLUCOSE Routine 05/14/2025 10:15 PM CDT BLOOD GAS VENOUS Stat 05/14/2025 5:[address] ABDOMEN PELVIS W CONTRAST Stat 05/14/2025 5:39 PM CDT TROPONIN 2 HR, 5TH GEN Timed Study 05/14/2025 4:08 PM CDT TSH REFLEXIVE Stat 05/14/2025 4:08 PM CDT LIPASE Stat 05/14/2025 4:08 PM CDT EKG 12-LEAD Stat 05/14/2025 3:25 PM CDT DRUG SCREEN, URINE Stat 05/14/2025 2: 28 PM CDT URINALYSIS W/REFLEX MICROSCOPIC Stat 05/14/2025 2:28 PM CDT TROPONIN BASELINE, 5TH GEN Stat 05/14/2025 2:00 PM CDT CBC WITH DIFFERENTIAL Stat 05/14/2025 2:00 PM CDT PHOSPHORUS Stat 05/14/2025 2:00 PM CDT MAGNESIUM LEVEL Stat 05/14/2025 2:00 PM CDT COMPREHENSIVE METABOLIC PANEL Stat 05/14/2025 2:00 PM CDT CRITICAL CARE Routine 05/14/2025 12:30 PM CDT documented in this encounter Results * (ABNORMAL) POC GLUCOSE (05/15/2025 12:24 PM CDT) GLUCOSE POC 173(H) 74 - 99 mg/dL 05/15/2025 12:24 PM CDT [facility] SPECIMEN SOURCE, GLUCOSE POC Whole Blood 05/15/2025 12:24 PM CDT [facility] - [facility] Blood, whole 05/15/2025 12:2 4 PM CDT 05/15/2025 12:34 PM CDT us Cindy Estrada MD POINT OF CARE TESTING Final Resu Performing Organization Address [facility]/ZIP Co de Phone Number [facility] [employer] [facility] CLIA# [id number] [address] [place] [address] * (ABNORMAL) POC GLUCOSE (05/15/2025 8:57 AM CDT) GLUCOSE POC 245(H) 74 - 99 mg/dL 05/15/2025 8:57 AM CDT [facility] SPECIMEN SOURCE, GLUCOSE POC Whole Blood 05/15/2025 8:57 AM CDT [facility] Blood, whole 05/15/2025 8:57 AM CDT 05/15/2025 9:06 AM CDT us Cindy Estrada MD POINT OF CARE TESTING Final Resu lt Performing Organization Address [facility]/ZIP Co de Phone Number [facility] [employer] [facility] CLIA# [id number] [address] [place] [address] * (ABNORMAL) POC GLUCOSE (05/15/2025 5:16 AM CDT) GLUCOSE POC 262(H) 74 - 99 mg/dL 05/15/2025 5:16 AM CDT [facility] - [facility] SPECIMEN SOURCE, GLUCOSE POC Whole Blood 05/15/2025 5:16 AM CDT [employer] [facility] - [facility] COMMENT, GLU POC Notified RN/MD 05/15/2025 5:16 AM CDT [employer] - [facility] Blood, whole 05/15/2025 5:16 AM CDT 05/15/2025 5:30 AM CDT Morro Donahue MD POINT OF CARE TESTING Final Re sult [employer] [facility] [id number] [address] [facility] [place] [address] * (ABNORMAL) COMPREHENSIVE METABOLIC PANEL (05/15/2025 1:09 AM CDT) SODIUM 136 136 - 145 mmol/L 05/15/2025 2:41 AM T [employer] [facility] - [facility] POTASSIUM 3.9 3.5 - 5.0 mmol/L 05/15/2025 2:41 AM T [employer] [facility] - [facility] CHLORIDE 102 98 - 107 mmol/L 05/15/2025 2:41 AM T [employer] [facility] CO2 23 22 - 29 mmol/L 05/15/2025 2:41 AM T [employer] [facility] CALCIUM 8.9 8.6 - 10.2 mg/dL 05/15/2025 2:41 AM T [employer] [facility] BUN 13 6 - 20 mg/dL 05/15/2025 2:41 AM T [employer] [facility] - [facility] CREATININE 1.19(H) 0.67 - 1.17 mg/dL 05/15/2025 2:41 AM T [employer] [facility] - [facility] GLUCOSE 154(H) 74 - 99 mg/dL 05/15/2025 2:41 AM T [employer] [facility] - [facility] TOTAL PROTEIN 6.9 6.7 - 8.6 g/dL 05/15/2025 2:41 AM T [employer] [facility] - [facility] ALBUMIN 3.8 3.5 - 5.2 g/dL 05/15/2025 2:41 AM [facility] BILIRUBIN TOTAL 0.4 0.0 - 1.2 mg/dL 05/15/2025 2:41 AM T [facility] ALKALINE PHOSPHATASE 118 40 - 129 U/L 05/15/2025 2:41 AM [facility] AST 17 <41 U/L 05/15/2025 2:41 AM [facility] ALT 15 <42 U/L 05/15/2025 2:41 AM [facility] GFR >60 >=60 mL/min/1.7 3 sq meter 05/15/2025 2:41 AM [facility] Comment:eGFR calculated with 2020 CKD-EPI equation. Vegetarian diet, extremely high or low muscle mass, and may affect results. Cystatin C with Glomerular Filtration Rate is a suitable alternative for these patients. ANION GAP 11 8 - 16 mmol/L 05/15/2025 2:41 AM [facility] Blood Venipuncture / Unknown 05/15/2025 1:09 AM CDT 05/15/2025 2:07 AM CDT [facility] - 05/15/2025 2:41 AM CDT Samples containing indocyanine green cause interferences on Total and/or Direct Bilirubin and must not be measured. us Bebe Otto MD CHEMISTRY ORDERABLES Final Res ult [facility] CLIA# [id number] [address] [facility] [place] [id number] * (ABNORMAL) CBC WITHOUT DIFFERENTIAL (05/15/2025 1:09 AM CDT) WBC 14.2(H) 4.0 - 9.8 K/uL 05/15/2025 2:38 AM T [facility] RBC 4.63 4.50 - 5.40 M/uL 05/15/2025 2:38 AM CDT [facility] SERVICES - [facility] HEMOGLOBIN 13.6 13.6 - 16.5 g/dL 05/15/2025 2:38 AM CDT [facility] - . [facility] HEMATOCRIT 39.0(L) 40.0 - 48.0 % 05/15/2025 2:38 AM CDT [facility] SERVICES - . [facility] MCV 84.2 82.0 - 99.0 fL 05/15/2025 2:38 AM CDT [facility] - . [facility] MCH 29.4 27.2 - 32.6 pg 05/15/2025 2:38 AM CDT [facility] SERVICES - . [facility] MCHC 34.9 31.5 - 35.5 g/dL 05/15/2025 2:38 AM CDT [facility] SERVICES - . [facility] PLATELETS 369(H) 140 - 350 K/uL 05/15/2025 2:38 AM CDT [facility] SERVICES - . [facility] MPV 11.2 9.3 - 12.4 fL 05/15/2025 2:38 AM CDT [facility] SERVICES - . [facility] RDW 12.8 11.5 - 14.5 % 05/15/2025 2:38 AM CDT [facility] - [facility] RDW-STDEV 38.7 37.1 - 48.7 fL 05/15/2025 2:38 AM T [facility] - . [facility] Blood Venipuncture / Unknown 05/15/2025 1:09 AM CDT 05/15/2025 2:07 AM CDT us Bebe Otto MD HEMATOLOGY ORDERABLES Final Re sult [facility] [id number] [address] [facility] [place] [id number] * (ABNORMAL) MAGNESIUM LEVEL (05/15/2025 1:09 AM CDT) MAGNESIUM 1.4(L) 1.6 - 2.6 mg/dL 05/15/2025 2:41 AM CDT [facility] - [facility] Blood Venipuncture / Unknown 05/15/2025 1:09 AM CDT 05/15/2025 2:07 AM CDT Bebe Otto MD CHEMISTRY ORDERABLES Final Res ult Performing Organization Address [facility]/ZIP Co de Phone Number [facility] [employer] [facility]# [id number] [address] [place] [address] * (ABNORMAL) POC GLUCOSE (05/15/2025 12:42 AM CDT) GLUCOSE POC 161(H) 74 - 99 mg/dL 05/15/2025 12:42 AM CDT [facility] [employer] [facility] SPECIMEN SOURCE, GLUCOSE POC Whole Blood 05/15/2025 12:42 AM CDT [facility] COMMENT, GLU POC Notified RN/MD 05/15/2025 12:42 AM CDT [facility] Blood, whole 05/15/2025 12:4 2 AM CDT 05/15/2025 12:53 AM CDT Morro Donahue MD POINT OF CARE TESTING Final Re sult Performing Organization Address [facility]/ZIP Co de Phone Number [facility] [employer] [facility]# [id number] [address] [place] [address] * (ABNORMAL) TROPONIN 6 HR, 5TH GEN (05/14/2025 10:50 PM CDT) TROPONIN T, 6 HR 5TH GEN 22(H) <=15 ng/L 05/14/2025 11:19 PM CDT [employer] [facility] DELTA 6HR TROPONIN T 8 See Interp. 05/14/2025 11:19 PM CDT [facility] Blood Venipuncture / Unknown 05/14/2025 10:50 PM CDT 05/14/2025 10:54 PM CDT Narrative [facility] SERVICES - [facility] - 05/14/2025 11:19 PM CDT Troponin elevated. Delta indeterminate. Delay in collection of timed specimen beyond recommended collection interval. Results must be interpreted in clinical context. Bebe Otto MD CHEMISTRY ORDERABLES Final Res ult Performing Organization Address [facility]/ZIP Co de Phone Number [facility] [employer] [facility]# [id number] [address] [place] [address] * (ABNORMAL) POC GLUCOSE (05/14/2025 10:15 PM CDT) GLUCOSE POC 177(H) 74 - 99 mg/dL 05/14/2025 10:15 PM CDT [facility] SPECIMEN SOURCE, GLUCOSE POC Whole Blood 05/14/2025 10:15 PM CDT [facility] COMMENT, GLU POC Notified RN/MD 05/14/2025 10:15 PM CDT [facility] Blood, whole 05/14/2025 10:1 5 PM CDT 05/14/2025 10:22 PM CDT Morro Donahue MD POINT OF CARE TESTING Final Re sult Performing Organization Address [facility]/ZIP Co de Phone Number [facility] [employer] [facility]# [id number] [address] [place] [address] * (ABNORMAL) BLOOD GAS VENOUS (05/14/2025 5:55 PM CDT) PH BLOOD POC 7.31(L) 7.32 - 7.43 05/14/2025 5:55 PM CDT [facility] PCO2 POC 44 38 - 50 mm Hg 05/14/2025 5:55 PM CDT [facility] PO2 POC 35 25 - 40 mm Hg 05/14/2025 5:55 PM CDT [facility] HCO3 (CALC) POC 22 22 - 29 mmol/L 05/14/2025 5:55 PM CDT [facility] SERVICES - [facility] HEMOGLOBIN POC 13.5(L) 13.6 - 16.5 g/dL 05/14/2025 5:55 PM CDT [facility] O2 SATURATION POC 64 40 - 70 % 05/14/2025 5:55 PM CDT [facility] HEMATOCRIT POC 41 40 - 48 % 05/14/2025 5:55 PM CDT [facility] Comment:Estimated Value PH TEMP CORRECT 7.31(L) 7.32 - 7.43 05/14/2025 5:55 PM CDT [facility] PCO2 TEMP CORRECT 44 38 - 50 mm Hg 05/14/2025 5:55 PM CDT [facility] PO2 TEMP CORRECT 35 25 - 40 mm Hg 05/14/2025 5:55 PM CDT [facility] SPECIMEN SOURCE, GASES POC Venous 05/14/2025 5:55 PM CDT [facility] COMMENT, GASES POC Responsible Clinical Caregiver notified 05/14/2025 5:55 PM CDT [facility] PATIENT'S TEMPERATURE POC 37.0 degrees 05/14/2025 5:55 PM CDT [facility] Blood, venous 05/14/2025 5:5 5 PM CDT 05/14/2025 5:57 PM CDT Keegan Jones DO ABG ORDERABLES Final Resul t [id number] [address] [facility] [address] [place] [address] * CT ABDOMEN PELVIS W CONTRAST (05/14/2025 5:39 PM CDT) Anatomical Region Laterality Modality Abdomen Computed Tomogra phy 05/14/2025 5:33 PM CDT Impressions 05/14/2025 6:03 PM CDT IMPRESSION: 1. No acute inflammatory process identified within the abdomen or pelvis. DICTATION LOCATION: Location 1 - [facility] 05/14/2025 6:[address] ABDOMEN PELVIS W CONTRAST IOPAMIDOL 61 % INTRAVENOUS SOLUTION (MULTI-DOSE BULK PACK) Given:100 mL Ordering provider: LAURI GALLARDO History: 34 years Male with Nausea and vomiting, unspecified vomiting type; Type 1 diabetes mellitus without complication (CMS/HCC). Generalized upper abdominal pain, nausea, vomiting, diabetes history. Comparison: 06/23/2024 Technique: CT abdomen and pelvis with IV and without oral contrast. The examination was performed with the adjustment of mA according to the patient size and/or the use of Iterative Reconstruction Technique. Findings: VISUALIZED LOWER CHEST: No focal consolidation or pleural effusion. Mild right basilar atelectasis. UPPER ABDOMINAL ORGANS: Liver: No masses. Biliary: Unremarkable. Spleen: Unremarkable. Stomach/duodenum: Unremarkable. Pancreas: No peripancreatic fat stranding. No ductal dilatation. Fatty atrophy of the pancreatic head, neck, and proximal body. Adrenals: Unremarkable. Kidneys: Symmetric enhancement. No hydronephrosis. PELVIC ORGANS: The bladder is unremarkable. BOWEL: No acute diverticulitis. No acute appendicitis. No small bowel obstruction. PERITONEUM/MESENTERY: No free air or free fluid. LYMPHADENOPATHY: No abdominal or pelvic lymphadenopathy. VASCULAR: Minimal atherosclerotic disease. MUSCULOSKELETAL: Superficial soft tissues: Unremarkable. Bones: Chronic bilateral L5 pars defects with grade 1 anterolisthesis of L5 on S1. Mild bilateral hip osteoarthritis. Procedure Note Morro Monroe MD - 05/14/2025 CT ABDOMEN PELVIS W CONTRAST IOPAMIDOL 61 % INTRAVENOUS SOLUTION (MULTI-DOSE BULK PACK) Given:100 mL Ordering provider: LAURI GALLARDO History: 34 years Male with Nausea and vomiting, unspecified vomiting type; Type 1 diabetes mellitus without complication (CMS/HCC). Generalized upper abdominal pain, nausea, vomiting, diabetes history. Comparison: 06/23/2024 Technique: CT abdomen and pelvis with IV and without oral contrast. The examination was performed with the adjustment of mA according to the patient size and/or the use of Iterative Reconstruction Technique. Findings: VISUALIZED LOWER CHEST: No focal consolidation or pleural effusion. Mild right basilar atelectasis. UPPER ABDOMINAL ORGANS: Liver: No masses. Biliary: Unremarkable. Spleen: Unremarkable. Stomach/duodenum: Unremarkable. Pancreas: No peripancreatic fat stranding. No ductal dilatation. Fatty atrophy of the pancreatic head, neck, and proximal body. Adrenals: Unremarkable. Kidneys: Symmetric enhancement. No hydronephrosis. PELVIC ORGANS: The bladder is unremarkable. BOWEL: No acute diverticulitis. No acute appendicitis. No small bowel obstruction. PERITONEUM/MESENTERY: No free air or free fluid. LYMPHADENOPATHY: No abdominal or pelvic lymphadenopathy. VASCULAR: Minimal atherosclerotic disease. MUSCULOSKELETAL: Superficial soft tissues: Unremarkable. Bones: Chronic bilateral L5 pars defects with grade 1 anterolisthesis of L5 on S1. Mild bilateral hip osteoarthritis. IMPRESSION: 1. No acute inflammatory process identified within the abdomen or pelvis. DICTATION LOCATION: Location 1 - [facility] Lauri Gallardo MD CT ORDERABLES Final Resul t * TSH REFLEXIVE (05/14/2025 4:08 PM CDT) TSH 0.39 0.27 - 4.20 uIU/mL 05/14/2025 6:05 PM CDT [facility] Blood Venipuncture / Unknown 05/14/2025 4:08 PM CDT 05/14/2025 4:29 PM CDT Keegan Jones DO CHEMISTRY ORDERABLES Final Result Performing Organization Address [facility]/ZIP Co de Phone Number [facility]# [id number] [address] [place] [address] * (ABNORMAL) LIPASE (05/14/2025 4:08 PM CDT) LIPASE 10(L) 13 - 60 U/L 05/14/2025 6:40 PM CDT [facility] Blood Venipuncture / Unknown 05/14/2025 4:08 PM CDT 05/14/2025 4:29 PM CDT Keegan Jones DO CHEMISTRY ORDERABLES Final Result [facility]# [id number] [address] [place] [address] * TROPONIN 2 HR, 5TH GEN (05/14/2025 4:08 PM CDT) TROPONIN T, 2 HR 5TH GEN 13 <=15 ng/L 05/14/2025 5:37 PM CDT [facility] DELTA 2HR TROPONIN T -1 See Interp. 05/14/2025 5:37 PM CDT [facility] Blood Venipuncture / Unknown 05/14/2025 4:08 PM CDT 05/14/2025 4:29 PM CDT Narrative [facility] - 05/14/2025 5:37 PM CDT Troponin Detectable but normal range. Delta not changing. Delay in collection of timed specimen beyond recommended collection interval. Results must be interpreted in clinical context. 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1990 Requested By: LAURI Mendoza Order Number: [id number] Reading MD: Sina Stone Measurements Intervals [employer] Rate: 79 P: 3 PA: 149 QRS: -12 QRSD: 91 T: 37 QT: 371 QTc: 426 Interpretive Statements Sinus arrhythmia Inferior infarct, old Electronically Signed On 05-14-2025 16:44:40 CDT by Sina Stone Procedure Note Sina Stone MD - 05/14/2025 [address] [facility] [place] [address] Test Date: 2025-05-14 Pat Name: PARK FRENCH Department: 38 Room: [place] [address] Gender: Male 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1990 Requested By: LAURI Mendoza Order Number: [id number] Reading MD: Sina Stone Measurements Intervals [employer] Rate: 79 P: 3 PA: 149 QRS: -12 QRSD: 91 T: 37 QT: 371 QTc: 426 Interpretive Statements Sinus arrhythmia Inferior infarct, old Electronically Signed On 05-14-2025 16:44:40 CDT by Sina Stone us Lauri Gallardo MD ECG ORDERABLES Final Resul t INTERFACE SYSTEM Refer to clinic/hospital department * DRUG SCREEN, URINE (05/14/2025 2:28 PM CDT) AMPHETAMINE QUAL, URINE Negative Negative 05/14/2025 5:59 PM CDT [facility] - [facility] BARBITURATE QUAL, URINE Negative Negative 05/14/2025 5:59 PM CDT [facility] - [facility] BENZODIAZEPINE QUAL, URINE Negative Negative 05/14/2025 5:59 PM CDT [facility] COCAINE QUAL URINE Negative Negative 2024 5:59 PM CDT [facility] OPIATE QUAL, URINE Negative Negative 2024 5:59 PM CDT [facility] - [facility] CANNABINOIDS QUAL, URINE Negative Negative 05/14/2025 5:59 PM CDT [facility] - [facility] PCP QUAL, URINE Negative Negative 5:59 PM CDT [facility] - [facility] OXYCODONE QUAL, URINE Negative Negative 05/14/2025 5:59 PM CDT [facility] METHADONE QUAL, URINE Negative Negative 05/14/2025 5:59 PM CDT [facility] FENTANYL QUAL, URINE Negative Negative 05/14/2025 5:59 PM CDT [facility] CREATININE, URINE 176.0 40.0 - 278.0 mg/dL 05/14/2025 5:59 PM CDT [facility] Comment:Reference Range vari es with fluid intake and diet. Urine URINE SPECIMEN OBTAINED BY CLEAN CATCH PROCEDURE / Unknown 05/14/2025 2:28 PM CDT 05/14/2025 2:28 PM CDT [facility] - 05/14/2025 5:59 PM CDT This test is a qualitative screen. The presumptive positive results should not be used for legal purposes. If confirmation of results is desired, the lab must be contacted without delay. Drug Ref. Range Screening Threshold Amphetamines Negative 500 ng/mL Barbiturates Negative 200 ng/mL Benzodiazepines Negative 100 ng/mL Cannabinoids Negative 50 ng/mL Cocaine Negative 150 ng/mL Methadone Negative 300 ng/mL Opiates Negative 300 ng/mL Oxycodone Negative 100 ng/mL Phencyclidine Negative 25 ng/mL Fentanyl Negative 5 ng/mL us Keegan Jones DO URINE ORDERABLES Final Resu lt [facility] [employer] [facility]# [id number] [address] [place] [address] * (ABNORMAL) URINALYSIS WITH REFLEX MICROSCOPIC (05/14/2025 2:28 PM CDT) COLOR UA Yellow Pale to Dark Yellow 05/14/2025 2:40 PM CDT [facility] CLARITY UA Clear Clear 05/14/2025 2:40 PM CDT [facility] SPECIFIC GRAVITY UA 1.023 1.003 - 1.035 05/14/2025 2:40 PM T [facility] PH UA 5.0 5.0 - 8.0 05/14/2025 2:40 PM CDT [facility] LEUKOCYTE ESTERASE UA Negative Negative 05/14/2025 2:40 PM CDT [facility] - [facility] NITRITE UA Negative Negative 05/14/2025 2:40 PM CDT [employer] LABORATORY SERVICES - [facility] PROTEIN UA 3+(A) Negative 05/14/2025 2:40 PM CDT [facility] - [facility] GLUCOSE UA 2+(A) Negative 05/14/2025 2:40 PM CDT [employer] [facility] - [facility] KETONES UA Negative Negative 05/14/2025 2:40 PM CDT [employer] [facility] - [facility] UROBILINOGEN UA Normal <2.0 mg/dL 2:40 PM CDT [employer] [facility] - [facility] BILIRUBIN UA Negative Negative 05/14/2025 2:40 PM CDT [employer] [facility] - [facility] BLOOD UA 1+(A) Negative 05/14/2025 2:40 PM CDT [employer] [facility] - [facility] WBC UA 0-2 0 - 2 /hpf 05/14/2025 2:40 PM CDT [employer] LABORATORY [facility] RBC UA 6-10(A) 0 - 2 /hpf 05/14/2025 2:40 PM CDT [employer] [facility] SERVICES - [facility] BACTERIA UA Negative Negative /hpf 05/14/2025 2:40 PM CDT [employer] [facility] - [facility] HYALINE CAST 6-10(A) None Seen, 0-2 /lpf 05/14/2025 2:40 PM CDT [employer] [facility] Urine URINE SPECIMEN OBTAINED BY CLEAN CATCH PROCEDURE / Unknown 05/14/2025 2:28 PM CDT 05/14/2025 2:28 PM CDT us Lauri Gallardo MD URINE ORDERABLES Final Resu lt [facility] [employer] [facility]# [id number] [address] [place] [address] * TROPONIN BASELINE, 5TH GEN (05/14/2025 2:00 PM CDT) TROPONIN T, BASELINE 5TH GEN 14 <=15 ng/L 05/14/2025 3:32 PM CDT [facility] - [facility] Blood Venipuncture / Unknown 05/14/2025 2:00 PM CDT 05/14/2025 2:12 PM CDT Narrative [facility] - 05/14/2025 3:32 PM CDT Troponin Detectable but normal range. Lauri Gallardo MD CHEMISTRY ORDERABLES Final Result [facility] CLIA# [id number] [address] [place] [address] * (ABNORMAL) PHOSPHORUS (05/14/2025 2:00 PM CDT) PHOSPHORUS 2.3(L) 2.5 - 4.5 mg/dL 05/14/2025 3:32 PM CDT [facility] Blood Venipuncture / Unknown 05/14/2025 2:00 PM CDT 05/14/2025 2:12 PM CDT Lauri Gallardo MD CHEMISTRY ORDERABLES Final Result Performing Organization Address City/[facility]/ZIP Co de Phone Number [facility] CLIA# [id number] [address] [place] [address] * MAGNESIUM LEVEL (05/14/2025 2:00 PM CDT) MAGNESIUM 1.7 1.6 - 2.6 mg/dL 05/14/2025 3:32 PM CDT [facility] Blood Venipuncture / Unknown 05/14/2025 2:00 PM CDT 05/14/2025 2:12 PM CDT Lauri Gallardo MD CHEMISTRY ORDERABLES Final Result [facility] [employer] [facility] CLIA# [id number] [address] [place] [address] * (ABNORMAL) COMPREHENSIVE METABOLIC PANEL (05/14/2025 2:00 PM CDT) [facility] SODIUM 134(L) 136 - 145 mmol/L 05/14/2025 2:56 PM CDT [employer] [facility] POTASSIUM 4.5 3.5 - 5.0 mmol/L 05/14/2025 2:56 PM CDT [employer] [facility] CHLORIDE 103 98 - 107 mmol/L 05/14/2025 2:56 PM CDT [employer] [facility] - [facility] CO2 22 22 - 29 mmol/L 05/14/2025 2:56 PM CDT [facility] [facility] CALCIUM 9.2 8.6 - 10.2 mg/dL 05/14/2025 2:56 PM CDT [facility] BUN 14 6 - 20 mg/dL 05/14/2025 2:56 PM CDT [facility] CREATININE 1.35(H) 0.67 - 1.17 mg/dL 05/14/2025 2:56 PM CDT [facility] GLUCOSE 166(H) 74 - 99 mg/dL 05/14/2025 2:56 PM CDT [facility] TOTAL PROTEIN 7.6 6.7 - 8.6 g/dL 05/14/2025 2:56 PM CDT [facility] ALBUMIN 4.1 3.5 - 5.2 g/dL 05/14/2025 2:56 PM CDT [facility] BILIRUBIN TOTAL 0.3 0.0 - 1.2 mg/dL 05/14/2025 2:56 PM CDT [facility] ALKALINE PHOSPHATASE 131(H) 40 - 129 U/L 05/14/2025 2:56 PM CDT [facility] AST 17 <41 U/L 05/14/2025 2:56 PM CDT [employer] [facility] - [facility] ALT 16 <42 U/L 05/14/2025 2:56 PM CDT [employer] [facility] GFR >60 >=60 mL/min/1.7 3 sq meter 05/14/2025 2:56 PM CDT [facility] Comment:eGFR calculated with 2020 CKD-EPI equation. Vegetarian diet, extremely high or low muscle mass, and may affect results. Cystatin C with Glomerular Filtration Rate is a suitable alternative for these patients. ANION GAP 9 8 - 16 mmol/L 05/14/2025 2:56 PM CDT [facility] Blood Venipuncture / Unknown 05/14/2025 2:00 PM CDT 05/14/2025 2:12 PM CDT [facility] - 05/14/2025 2:56 PM CDT Samples containing indocyanine green cause interferences on Total and/or Direct Bilirubin and must not be measured. Lauri Gallardo MD CHEMISTRY ORDERABLES Final Result [facility] [employer] [facility] CLVA# [id number] [address] [facility] [place] [address] * (ABNORMAL) CBC WITH DIFFERENTIAL (05/14/2025 2:00 PM CDT) WBC 11.2(H) 4.0 - 9.8 K/uL 05/14/2025 2:29 PM CDT [facility] RBC 4.72 4.50 - 5.40 M/uL 05/14/2025 2:29 PM CDT [facility] HEMOGLOBIN 14.0 13.6 - 16.5 g/dL 05/14/2025 2:29 PM CDT [facility] HEMATOCRIT 40.3 40.0 - 48.0 % 05/14/2025 2:29 PM CDT [facility] MCV 85.4 82.0 - 99.0 fL 05/14/2025 2:29 PM CDT [facility] MCH 29.7 27.2 - 32.6 pg 05/14/2025 2:29 PM CDT [facility] MCHC 34.7 31.5 - 35.5 g/dL 05/14/2025 2:29 PM CDT [employer] [facility] - [facility] RDW 12.8 11.5 - 14.5 % 05/14/2025 2:29 PM CDT [facility] - [facility] RDW-STDEV 39.7 37.1 - 48.7 fL 05/14/2025 2:29 PM CDT [employer] [facility] - [facility] PLATELETS 347 140 - 350 K/uL 05/14/2025 2:29 PM CDT [employer] [facility] - [facility] MPV 10.9 9.3 - 12.4 fL 05/14/2025 2:29 PM CDT [employer] [facility] - [facility] NEUTROPHILS 81 % 05/14/2025 2:29 PM CDT [employer] [facility] - [facility] LYMPHOCYTES 14 % 05/14/2025 2:29 PM CDT [employer] [facility] - [facility] MONOCYTES 3 % 05/14/2025 2:29 PM CDT [employer] [facility] - [facility] EOSINOPHILS 0 % 05/14/2025 2:29 PM CDT [employer] [facility] - [facility] BASOPHILS 1 % 05/14/2025 2:29 PM CDT [employer] [facility] SERVICES - . [facility] IMMATURE GRANULOCYTES 0 % 05/14/2025 2:29 PM CDT [employer] [facility] - [facility] NEUTROPHIL ABSOLUTE 9.10(H) 1.90 - 7.00 K/uL 05/14/2025 2:29 PM CDT [employer] [facility] - [facility] LYMPHOCYTE ABSOLUTE 1.59 0.70 - 4.50 K/uL 05/14/2025 2:29 PM CDT [employer] [facility] SERVICES - . [facility] MONOCYTE ABSOLUTE 0.36 0.10 - 1.30 K/uL 05/14/2025 2:29 PM CDT [employer] SERVICES - . [facility] EOSINOPHIL ABSOLUTE 0.04 0.00 - 0.70 K/uL 05/14/2025 2:29 PM CDT [employer] SERVICES - . [facility] BASOPHILS ABSOLUTE 0.07 0.00 - 0.20 K/uL 05/14/2025 2:29 PM CDT [employer] SERVICES - . [facility] IMMATURE GRANULOCYTES ABSOLUTE 0.04(H) 0.00 - 0.03 K/uL 05/14/2025 2:29 PM CDT [employer] - [facility] Blood Venipuncture / Unknown 05/14/2025 2:00 PM CDT 05/14/2025 2:12 PM CDT Result [facility] Lauri Gallardo MD HEMATOLOGY ORDERABLES Final Result [facility]# [id number] [address] [place] [address] * Critical Care (05/14/2025 12:30 PM CDT) Narrative Keegan Jones DO - 05/14/2025 12:30 PM CDT Keegan Jones DO 05/14/2025 6:19 PM Critical Care Performed by: eKegan Jones DO Authorized by: Keegan Jones DO Critical care provider statement: Critical care time (minutes): 35 Critical care time was exclusive of: Separately billable procedures and treating other patients Critical care was necessary to treat or prevent imminent or life-threatening deterioration of the following conditions: Dehydration Critical care was time spent personally by me on the following activities: Development of treatment plan with patient or surrogate, evaluation of patient's response to treatment, ordering and performing treatments and interventions, ordering and review of laboratory studies, ordering and review of radiographic studies, pulse oximetry, re-evaluation of patient's condition, review of old charts, examination of patient, obtaining history from patient or surrogate and discussions with consultants I assumed direction of critical care for this patient from another provider in my specialty: no Care discussed with: admitting provider Result [facility] Keegan Jones DO PROCEDURE/MINOR SURGICAL OR DERABLES Final Result documented in this encounter Visit Diagnoses Diagnosis Abdominal pain- Primary Abdominal pain, unspecified site Nausea and vomiting, unspecified vomiting type Type 1 diabetes mellitus without complication (CMS/HCC) Type I (juvenile type) diabetes mellitus without mention of complication, not stated as uncontrolled Nausea & vomiting Nausea with vomiting documented in this encounter Administered Medications Inactive Administered Medications - up to 3 most recent administrations Medication Order MAR Action Action Date Dose Rate Site acetaminophen (TYLENOL) tablet 650 mg 650 mg, Oral, EVERY 6 HOURS PRN, Starting on Wed05/14/25 at 1821, Until Wed05/15/25 at 1622, Other (See Comment), See admin instructions, Routine Given 05/15/2025 12:45 AM CDT 650 mg bisacodyL (DULCOLAX) rectal suppository 10 mg 10 mg, Rectal, DAILY PRN, Starting on Wed05/14/25 at 2105, Until Wed05/15/25 at 1622, Constipation, Routine dextrose 5 % - lactated ringers infusion IV, at 1,000 mL/hr, CONTINUOUS, Starting on Wed05/14/25 at 1730, Until Wed05/14/25 at 2116, Routine New Bag 05/14/2025 6:32 PM CDT 1000 mL/hr dextrose 5 % - sodium chloride 0.9 % infusion IV, at 40 mL/hr, SEE ADMIN INSTRUCTIONS, Starting on Wed05/14/25 at 2109, Until Wed05/15/25 at 1622, Routine dextrose 5 % in water 250 mL flush bag 25 mL 25 mL, IV, SEE ADMIN INSTRUCTIONS, Starting on Wed05/14/25 at 2104, Until Wed05/15/25 at 1622, Routine dextrose 50% (D50) syringe 12.5 Gram 12.5 Gram, IV, SEE ADMIN INSTRUCTIONS, Starting on Wed05/14/25 at 2109, Until Wed05/15/25 at 1622, Routine dextrose 50% (D50) syringe 25 Gram 25 Gram, IV, SEE ADMIN INSTRUCTIONS, Starting on Wed05/14/25 at 2109, Until Wed05/15/25 at 1622, Routine diphenhydrAMINE (BENADRYL) injection 25 mg 25 mg, IV, ONE TIME ONLY, 1 dose, On Wed05/14/25 at 1815, Routine Given 05/14/2025 7:12 PM CDT 25 mg famotidine PF (PEPCID) 20 mg/2 mL injection 20 mg 20 mg, IV, ONE TIME ONLY, 1 dose, On Wed05/14/25 at 1815, Routine Given 05/14/2025 6:11 PM CDT 20 mg glucagon HCL 1 mg/mL injection 1 mg 1 mg, IM, SEE ADMIN INSTRUCTIONS, Starting on Wed05/14/25 at 2109, Until Wed05/15/25 at 1622, Routine heparin injection 5,000 Units 5,000 Units, subCUT, EVERY 8 HOURS, First dose on Wed05/14/25 at 2115, Until Discontinued, Routine Given 05/14/2025 10:37 PM CDT 5,000 Units Abdominal Tissue insulin glargine (LANTUS) injection 23 Units 23 Units, subCUT, DAILY WITH BREAKFAST, First dose on Wed05/15/25 at 0915, Until Discontinued, Routine Given 05/15/2025 9:19 AM CDT 23 Units Arm, Right Upper insulin glargine (LANTUS) injection 25 Units 25 Units, subCUT, DAILY AT BEDTIME, First dose (after last modification) on Wed05/14/25 at 2230, Until Discontinued, RoutineIndications:Ensu re inuslin pump is turned off completely before injecting insulin Given 05/15/2025 12:48 AM CDT 25 Units Arm, Left Upper insulin lispro (HumaLOG,ADMELOG) injection 0-12 Units 0-12 Units, subCUT, EVERY 4 HOURS, First dose on Wed05/14/25 at 2115, Until Discontinued, Routine Given 05/15/2025 5:18 AM CDT 6 Units Arm, Left Upper insulin lispro (HumaLOG,ADMELOG) injection 0-12 Units 0-12 Units, subCUT, FOUR TIMES DAILY WITH MEALS AND AT BEDTIME, First dose (after last modification) on Wed05/15/25 at 0915, Until Discontinued, Routine Given 05/15/2025 9:17 AM CDT 4 Units Arm, Right Upper insulin lispro (HumaLOG,ADMELOG) variable dose injection subCUT, THREE TIMES DAILY WITH MEALS, First dose (after last modification) on Wed05/15/25 at 0915, Until Discontinued, Routine Given 05/15/2025 9:18 AM CDT 4 Units Arm, Right Upper iopamidoL (ISOVUE-300) 61% injection (drawn from multi-use bulk pack) 100 mL 100 mL, IV, INTRA-PROCEDURE ONCE, 1 dose, Starting on Wed05/14/25 at 1740, Until Wed05/14/25 at 1740, Routine Contrast Given 05/14/2025 5:40 PM CDT 100 mL lisinopriL (PRINIVIL) tablet 10 mg 10 mg, Oral, DAILY AT BEDTIME, First dose on Wed05/14/25 at 2115, Until Discontinued, Routine, Previous Med: lisinopriL (PRINIVIL) 10 mg tablet - Orig Sig - Take 10 mg by mouth daily at bedtime. Given 05/14/2025 10:37 PM CDT 10 mg magnesium HYDROXIDE (MILK OF MAGNESIA) oral suspension 30 mL 30 mL, Oral, DAILY PRN, Starting on Wed05/14/25 at 2105, Until Wed05/15/25 at 1622, Constipation, Routine magnesium SULFATE in water 2 gram/50 mL (4 %) IVPB 2 Gram 2 Gram, IV, ONE TIME ONLY, 1 dose, On Wed05/15/25 at 0800, Routine New Bag 05/15/2025 9:16 AM CDT 2 Grams 25 mL/hr melatonin tablet 3 mg 3 mg, Oral, NIGHTLY PRN, Starting on Wed05/14/25 at 2105, Until Wed05/15/25 at 1622, Insomnia, Routine metoclopramide (REGLAN) 5 mg/mL injection 5 mg 5 mg, IV, ONE TIME ONLY, 1 dose, On Wed05/14/25 at 1815, Routine Given 05/14/2025 7:13 PM CDT 5 mg metoclopramide HCl (REGLAN) tablet 10 mg 10 mg, Oral, FOUR TIMES DAILY BEFORE MEALS AND AT BEDTIME, First dose on Wed05/15/25 at 0915, Until Discontinued, Routine Given 05/15/2025 12:27 PM CDT 10 mg naloxone (NARCAN) 0.4 mg/mL injection 0.1-0.4 mg 0.1-0.4 mg, IV, SEE ADMIN INSTRUCTIONS, Starting on Wed05/14/25 at 1821, Until Wed05/15/25 at 1622, Routine ondansetron (ZOFRAN) 4 mg/2 mL injection 4 mg 4 mg, IV, ONE TIME ONLY, 1 dose, On Wed05/14/25 at 1515, Routine Given 05/14/2025 3:19 PM CDT 4 mg ondansetron (ZOFRAN) 4 mg/2 mL injection 4 mg 4 mg, IV, ONE TIME ONLY, 1 dose, On Wed05/14/25 at 1815, Routine Given 05/14/2025 6:11 PM CDT 4 mg ondansetron (ZOFRAN) 4 mg/2 mL injection 4 mg 4 mg, IV, EVERY 6 HOURS PRN, Starting on Wed05/14/25 at 1821, Until Wed05/15/25 at 1622, Nausea/Emesis, Routine Given 05/15/2025 12:46 AM CDT 4 mg ondansetron (ZOFRAN) 4 mg/2 mL injection 4 mg 4 mg, IV, THREE TIMES DAILY BEFORE MEALS, 3 doses, First dose on Wed05/15/25 at 0600, Last dose on Wed05/15/25 at 1600, Routine Given 05/15/2025 6:32 AM CDT 4 mg pantoprazole (PROTONIX) 40 mg in sodium chloride 0.9% 10 mL injection 40 mg, IV, TWO TIMES DAILY, First dose on Wed05/14/25 at 2130, Until Discontinued, Routine, For vial+diluent: 10 mL NS is needed to reconstitute pantoprazole vial. For doses less than 40 mg Epic may default less than 10 mL NS. Pharmacist to change NS dispense amount to 10 mL., Indication: Gastroesophageal reflux disease (GERD) Given 05/15/2025 5:12 AM CDT 40 mg Given 05/14/2025 10:37 PM CDT 40 mg prochlorperazine maleate (COMPAZINE) tablet 10 mg 10 mg, Oral, EVERY 6 HOURS PRN, Starting on Wed05/14/25 at 2105, Until Wed05/15/25 at 1622, Nausea/Emesis, Routine Given 05/14/2025 10:37 PM CDT 10 mg sennosides-docusate sodium (SENNA-S) 8.6-50 mg per tablet 2 Tablet 2 Tablet, Oral, TWO TIMES DAILY, First dose on Wed05/14/25 at 2115, Until Discontinued, Routine sodium chloride 0.9 % bolus solution 1,000 mL 1,000 mL, IV, ONE TIME ONLY, 1 dose, On Wed05/14/25 at 1515, at 2,000 mL/hr, Administer over 30 Minutes, Routine New Bag 05/14/2025 3:18 PM CDT 1,000 mL 2000 m L/hr sodium chloride 0.9 % flush bag 25 mL 25 mL, IV, SEE ADMIN INSTRUCTIONS, Starting on Wed05/14/25 at 2104, Until Wed05/15/25 at 1622, Routine sodium chloride 0.9 % infusion IV, at 125 mL/hr, CONTINUOUS, Starting on Wed05/14/25 at 2130, Until Wed05/15/25 at 0929, Routine Restarted 05/15/2025 2:39 AM CDT 125 mL/hr Restarted 05/15/2025 2:05 AM CDT 125 mL/hr Restarted 05/15/2025 1:57 AM CDT 125 mL/hr sodium chloride flush injection 10 mL 10 mL, IV, SEE ADMIN INSTRUCTIONS, Starting on Wed05/14/25 at 1740, Until Wed05/14/25 at 2139, Routine Given 05/14/2025 5:40 PM CDT 10 mL sodium chloride flush injection 10 mL 10 mL, IV, EVERY 12 HOURS (BlD), First dose on Wed05/14/25 at 1830, Until Discontinued, Routine Given 05/14/2025 6:30 PM CDT 10 mL sodium chloride flush injection 10 mL 10 mL, IV, EVERY 12 HOURS (BlD), First dose on Wed05/14/25 at 2115, Until Discontinued, Routine Given 05/15/2025 5:14 AM CDT 10 mL Given 05/14/2025 10:36 PM CDT 10 mL sodium chloride flush injection 10 mL 10 mL, IV, SEE ADMIN INSTRUCTIONS, Starting on Wed05/14/25 at 2104, Until Wed05/15/25 at 1622, Routine documented in this encounter Active and Recently Administered Medications Times are shown in CDT. Scheduled Medication Order 05/13/2025 05/14/2025 05/15/2025 dextrose 5 % - sodium chloride 0.9 % infusion IV, at 40 mL/hr, SEE ADMIN INSTRUCTIONS, Starting on Wed05/14/25 at 2109, Until Wed05/15/25 at 1622, Routine dextrose 5 % in water 250 mL flush bag 25 mL 25 mL, IV, SEE ADMIN INSTRUCTIONS, Starting on Wed05/14/25 at 2104, Until Wed05/15/25 at 1622, Routine dextrose 50% (D50) syringe 12.5 Gram 12.5 Gram, IV, SEE ADMIN INSTRUCTIONS, Starting on Wed05/14/25 at 2109, Until Wed05/15/25 at 1622, Routine dextrose 50% (D50) syringe 25 Gram 25 Gram, IV, SEE ADMIN INSTRUCTIONS, Starting on Wed05/14/25 at 2109, Until Wed05/15/25 at 1622, Routine diphenhydrAMINE (BENADRYL) injection 25 mg (COMPLETED) 25 mg, IV, ONE TIME ONLY, 1 dose, On Wed05/14/25 at 1815, Routine 1912 (Given - Provider: Trang Scott, LULY) famotidine PF (PEPCID) 20 mg/2 mL injection 20 mg (COMPLETED) 20 mg, IV, ONE TIME ONLY, 1 dose, On Wed05/14/25 at 1815, Routine 181 (Given - Provider: Dionte Brower RN) glucagon HCL 1 mg/mL injection 1 mg 1 mg, IM, SEE ADMIN INSTRUCTIONS, Starting on Wed05/14/25 at 2109, Until Wed05/15/25 at 1622, Routine heparin injection 5,000 Units 5,000 Units, subCUT, EVERY 8 HOURS, First dose on Wed05/14/25 at 2115, Until Discontinued, Routine 223 (Given - Provider: Charisse Ramírez RN) 0515 (Refused - Provider: Sangeeta Medeiros, LULY)1300 (Refused - Provider: Kerri Martin, LULY) insulin glargine (LANTUS) injection 23 Units 23 Units, subCUT, DAILY WITH BREAKFAST, First dose on Wed05/15/25 at 0915, Until Discontinued, Routine 0919 (Given - Provider: Kerri Martin, LULY) insulin glargine (LANTUS) injection 25 Units 25 Units, subCUT, DAILY AT BEDTIME, First dose (after last modification) on Wed05/14/25 at 2230, Until Discontinued, Routine 0048 (Given - Provider: Sangeeta Medeiros, LULY) insulin lispro (HumaLOG,ADMELOG) injection 0-12 Units (CANCELED) 0-12 Units, subCUT, EVERY 4 HOURS, First dose on Wed05/14/25 at 2115, Until Discontinued, Routine 2247 (Not Given - Provider: Charisse Ramírez RN - Reason: Lab results / vitals - Comment: [id number]) 0048 (Not Given - Provider: Sangeeta Medeiros RN - Reason: Lab results / vitals - Comment: [phone] (Given - Provider: Sangeeta Medeiros RN - Comment: [phone] (Canceled Entry - Provider: Kerri Martin RN) insulin lispro (HumaLOG,ADMELOG) injection 0-12 Units 0-12 Units, subCUT, FOUR TIMES DAILY WITH MEALS AND AT BEDTIME, First dose (after last modification) on Wed05/15/25 at 0915, Until Discontinued, Routine 09 (Given - Provider: Kerri Martin RN)1200 (Not Given - Provider: Kerri Martin RN - Reason: Lab results / vitals) insulin lispro (HumaLOG,ADMELOG) variable dose injection subCUT, THREE TIMES DAILY WITH MEALS, First dose (after last modification) on Wed05/15/25 at 0915, Until Discontinued, Routine 917 (Given - Provider: Kerri Martin RN - Comment: carbs 16g)1200 (Refused - Provider: Kerri Martin RN - Comment: pt will dose himself when home) iopamidoL (ISOVUE-300) 61% injection (drawn from multi-use bulk pack) 100 mL (COMPLETED) 100 mL, IV, INTRA-PROCEDURE ONCE, 1 dose, Starting on Wed05/14/25 at 1740, Until Wed05/14/25 at 1740, Routine 1740 (Contrast Given - Provider: Marcelina Joseph, RT) lisinopriL (PRINIVIL) tablet 10 mg 10 mg, Oral, DAILY AT BEDTIME, First dose on Wed05/14/25 at 2115, Until Discontinued, Routine, Previous Med: lisinopriL (PRINIVIL) 10 mg tablet - Orig Sig - Take 10 mg by mouth daily at bedtime. 7 (Given - Provider: Charisse Ramírez, LULY) magnesium SULFATE in water 2 gram/50 mL (4 %) IVPB 2 Gram (COMPLETED) 2 Gram, IV, ONE TIME ONLY, 1 dose, On Wed05/15/25 at 0800, Routine 0916 (New Bag - Provider: Kerri Martin RN)1116 (Stopped - Provider: Kerri Martin RN) metoclopramide (REGLAN) 5 mg/mL injection 5 mg (COMPLETED) 5 mg, IV, ONE TIME ONLY, 1 dose, On Wed05/14/25 at 1815, Routine 1913 (Given - Provider: Trang Scott, LULY) metoclopramide HCl (REGLAN) tablet 10 mg 10 mg, Oral, FOUR TIMES DAILY BEFORE MEALS AND AT BEDTIME, First dose on Wed05/15/25 at 0915, Until Discontinued, Routine 0915 (Not Given - Provider: Kerri Martin, LULY - Reason: Patient condition)1227 (Given - Provider: Kerri Martin, LULY) naloxone (NARCAN) 0.4 mg/mL injection 0.1-0.4 mg 0.1-0.4 mg, IV, SEE ADMIN INSTRUCTIONS, Starting on Wed05/14/25 at 1821, Until Wed05/15/25 at 1622, Routine ondansetron (ZOFRAN) 4 mg/2 mL injection 4 mg (COMPLETED) 4 mg, IV, ONE TIME ONLY, 1 dose, On Wed05/14/25 at 1515, Routine 1519 (Given - Provider: Manuela Beck RN) ondansetron (ZOFRAN) 4 mg/2 mL injection 4 mg (COMPLETED) 4 mg, IV, ONE TIME ONLY, 1 dose, On Wed05/14/25 at 1815, Routine 1811 (Given - Provider: Dionte Brower RN) ondansetron (ZOFRAN) 4 mg/2 mL injection 4 mg 4 mg, IV, THREE TIMES DAILY BEFORE MEALS, 3 doses, First dose on Wed05/15/25 at 0600, Last dose on Wed05/15/25 at 1600, Routine 0632 (Given - Provider: Sangeeta Medeiros RN)1100 (Not Given - Provider: Kerri Martin, LULY - Reason: Patient condition) pantoprazole (PROTONIX) 40 mg in sodium chloride 0.9% 10 mL injection 40 mg, IV, TWO TIMES DAILY, First dose on Wed05/14/25 at 2130, Until Discontinued, Routine, For vial+diluent: 10 mL NS is needed to reconstitute pantoprazole vial. For doses less than 40 mg Epic may default less than 10 mL NS. Pharmacist to change NS dispense amount to 10 mL., Indication: Gastroesophageal reflux disease (GERD) 2236 (Given - Provider: Charisse Ramírez, LULY) 0512 (Given - Provider: Sangeeta Medeiros, LULY) sennosides-docusate sodium (SENNA-S) 8.6-50 mg per tablet 2 Tablet 2 Tablet, Oral, TWO TIMES DAILY, First dose on Wed05/14/25 at 2115, Until Discontinued, Routine 2114 (Refused - Provider: Charisse Ramírez RN) 0514 (Refused - Provider: Sangeeta Medeiros, LULY) sodium chloride 0.9 % bolus solution 1,000 mL (COMPLETED) 1,000 mL, IV, ONE TIME ONLY, 1 dose, On Wed05/14/25 at 1515, at 2,000 mL/hr, Administer over 30 Minutes, Routine 1518 (New Bag - Provider: Manuela Beck RN)1548 (Stopped - Provider: Dionte Brower RN) sodium chloride 0.9 % flush bag 25 mL 25 mL, IV, SEE ADMIN INSTRUCTIONS, Starting on Wed05/14/25 at 2104, Until Wed05/15/25 at 1622, Routine sodium chloride flush injection 10 mL () 10 mL, IV, SEE ADMIN INSTRUCTIONS, Starting on Wed05/14/25 at 1740, Until Wed05/14/25 at 2139, Routine 1740 (Given - Provider: Marcelina Joseph, RT) sodium chloride flush injection 10 mL (CANCELED) 10 mL, IV, EVERY 12 HOURS (BlD), First dose on Wed05/14/25 at 1830, Until Discontinued, Routine 1830 (Given - Provider: Trang Scott, LULY) sodium chloride flush injection 10 mL 10 mL, IV, EVERY 12 HOURS (BlD), First dose on Wed05/14/25 at 2115, Until Discontinued, Routine 223 (Given - Provider: Charisse Ramírez RN) 0514 (Given - Provider: Sangeeta Medeiros, LULY) sodium chloride flush injection 10 mL 10 mL, IV, SEE ADMIN INSTRUCTIONS, Starting on Wed05/14/25 at 2104, Until Wed05/15/25 at 1622, Routine Continuous Medication Order 05/13/2025 05/14/2025 05/15/2025 dextrose 5 % - lactated ringers infusion (CANCELED) IV, at 1,000 mL/hr, CONTINUOUS, Starting on Wed05/14/25 at 1730, Until Wed05/14/25 at 2116, Routine 1832 (New Bag - Provider: Dionte Brower RN)2115 (Stopped - Provider: Charisse Ramírez RN - Comment: [Order ends at this time. Document the following action when infusion is complete: Stopped]) sodium chloride 0.9 % infusion IV, at 125 mL/hr, CONTINUOUS, Starting on Wed05/14/25 at 2130, Until Wed05/15/25 at 0929, Routine 2239 (New Bag - Provider: Charisse Ramírez RN) 0058 (Paused - Provider: Sangeeta Medeiros RN)0104 (Restarted - Provider: Sangeeta Medeiros RN)0152 (Paused - Provider: Sangeeta Medeiros RN)0157 (Restarted - Provider: Sangeeta Medeiros RN)0157 (Paused - Provider: Sangeeta Medeiros RN)0205 (Restarted - Provider: Sangeeta Medeiros RN)0206 (Stopped - Provider: Sangeeta Medeiros RN)0206 (Stopped - Provider: Sangeeta Medeiros RN)0207 (Stopped - Provider: Sangeeta Medeiros RN)0210 (Stopped - Provider: Sangeeta Medeiros RN - Comment: lost IV access)0239 (Restarted - Provider: Sangeeta Medeiros RN)0929 (Stopped - Provider: Kerri Martin RN - Comment: [Order ends at this time. Document the following action when infusion is complete: Stopped]) PRN Medication Order 05/13/2025 05/14/2025 05/15/2025 acetaminophen (TYLENOL) tablet 650 mg 650 mg, Oral, EVERY 6 HOURS PRN, Starting on Wed05/14/25 at 1821, Until Wed05/15/25 at 1622, Other (See Comment), See admin instructions, Routine 0045 (Given - Provid er: Sangeeta Medeiros RN) bisacodyL (DULCOLAX) rectal suppository 10 mg(Linked Group 1) 10 mg, Rectal, DAILY PRN, Starting on Wed05/14/25 at 2105, Until Wed05/15/25 at 1622, Constipation, Routine magnesium HYDROXIDE (MILK OF MAGNESIA) oral suspension 30 mL(Linked Group 1) 30 mL, Oral, DAILY PRN, Starting on Wed05/14/25 at 2105, Until Wed05/15/25 at 1622, Constipation, Routine melatonin tablet 3 mg 3 mg, Oral, NIGHTLY PRN, Starting on Wed05/14/25 at 2105, Until Wed05/15/25 at 1622, Insomnia, Routine ondansetron (ZOFRAN) 4 mg/2 mL injection 4 mg 4 mg, IV, EVERY 6 HOURS PRN, Starting on Wed05/14/25 at 1821, Until Wed05/15/25 at 1622, Nausea/Emesis, Routine 0046 (Given - Provid er: Sangeeta Medeiros RN) prochlorperazine maleate (COMPAZINE) tablet 10 mg 10 mg, Oral, EVERY 6 HOURS PRN, Starting on Wed05/14/25 at 2105, Until Wed05/15/25 at 1622, Nausea/Emesis, Routine 2237 (Given - Provider: Charisse Ramírez RN) Linked Groups Order Group 1: magnesium HYDROXIDE (MILK OF MAGNESIA) oral suspension 30 mLJump to med 30 mL, Oral, DAILY PRN, Starting on Wed05/14/25 at 2105, Until Wed05/15/25 at 1622, Constipation, Routine Or bisacodyL (DULCOLAX) rectal suppository 10 mgJump to med 10 mg, Rectal, DAILY PRN, Starting on Wed05/14/25 at 2105, Until Wed05/15/25 at 1622, Constipation, Routine documented in this encounter Care Teams Knuckler Relationship Specialty Start Date End Date Jae Martínez MD PCP - General 02/22/09 documented as of this encounter
--- OUTSIDE RECORDS SUMMARY | 2025-05-16 20:03 | XMS_ITS | Clinical Summary ---
Author Organization [facility] Address [address] [place] [phone] Phone Care Team Providers Care Workers Compensation Paralegal Name Role Phone Jae Martínez MD Primary Care Provider [phone] Social History Tobacco Use Types Packs/Day Years Used Date Smoking Tobacco: Never Assessed Sex and Gender Information Value Date Recorded Sex Assigned at Not on file Legal Sex Male 11:13 AM CDT Gender Identity Not on file Sexual Orientation Not on file Plan of Treatment Health Maintenance Due Date Last Done Comments Hepatitis C Virus (HCV) Screening 1990 TdaP Immunization 1990 Hepatitis B Immunization (1 of 3 - 19+ 3-dose series) 2009 SARS-COV-2 Immunization ( season) 2024 Influenza Immunization (Seas on Ended) 2025 Respiratory Syncytial Virus (RSV) Immunization (Adult) (1 - 1-dose 75+ series) 2065 Human Papillomavirus (HPV) Immunization Aged Out No longer eligible b ased on patient's age to complete this topic Meningococcal Immunization (ACWY) Aged Out No longer eligible based on patient's age to complete this topic Pneumococcal Immunization Combined Aged Out No longer eligible based on patient's age to complete this topic Rotavirus Immunization Aged Out No lo nger eligible based on patient's age to complete this topic Care Teams Workers Compensation Paralegal Relationship Specialty Start Date End Date Jae Martínez MD [address] [facility] [address] [place] [address] PCP - General Internal Medicine 02/03/23
--- OUTSIDE RECORDS SUMMARY | 2025-05-16 20:03 | XMS_ITS | Encounter Summary ---
Author Organization [facility] Address [address] [place] [address] Care Team Providers Care Cereal Maker Name Role Phone Jae Martínez MD Primary Care Provider [phone] Encounter Details Date Type Department Care Team (Late st Contact Info) Description 02/25/2009 Outpatient Historical [facility] Jae Martínez MD [address] [facility] [address] [place] [address] Routine General Medical Examination at a Health Care Facility Social History Tobacco Use Types Packs/Day Years Used Date Smoking Tobacco: Never Alcohol Use Standard Drinks/Week Comments No 0 (1 standard drink = 0.6 oz pur e alcohol) Sex and Gender Information Value Date Recorded Sex Assigned at Not on file 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
--- OUTSIDE RECORDS SUMMARY | 2025-05-16 20:03 | XMS_ITS | Encounter Summary ---
Author Organization [facility] Address [address] [place] [address] Care Team Providers Care Stranding Machine Operator Helper Name Role Phone Jae Martínez MD Primary Care Provider Encounter Details Date Type Department Care Team [...] on file Legal Sex Male 3:06 AM REAR ADMIRAL Gender Identity Not on file Sexual Orientation Not on file documented as of this encounter Plan of Treatment Not on file documented as of this encounter Visit Diagnoses Not on filedocumented in this encounter Care Teams Stranding Machine Operator Helper Relationship Specialty Start Date End Date Jae Martínez MD PCP - General 02/22/09 documented as of this encounter
--- OUTSIDE RECORDS SUMMARY | 2025-05-16 20:03 | XMS_ITS | Encounter Summary ---
Author Organization [facility] Address [address] [place] [address] Care Team Providers Care Client Care Specialist Name Role Phone Jae Martínez MD Primary Care Provider [phone] Encounter Details Date Type Department Care Team (Late st Contact Info) Description 03/30/[address] 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
--- OUTSIDE RECORDS SUMMARY | 2025-05-16 20:03 | XMS_ITS | Encounter Summary ---
Author Organization [facility] Address [address] [place] [address] Care Team Providers Care Industrial Engineering Technician Name Role Phone Jae Martínez MD Primary Care Provider [phone] Encounter Details Date Type Department Care Team (Late st Contact Info) Description 04/29/2009 Outpatient Historical [facility], Authorized P NO ADDRESS ON FILE Ivan Hua MD [address] 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 Gender Identity Not on file Sexual Orientation Not on file documented as of this encounter Plan of Treatment Not on file documented as of this encounter Procedures Procedure Name Priority Date/Time Associated Diagnosis Comments POC GLUCOSE Routine 04/29/2009 5:35 PM CDT POC GLUCOSE Routine 04/29/2009 4:42 PM CDT CBC WITH DIFFERENTIAL Stat 04/29/2009 3:49 PM CDT COMPREHENSIVE METABOLIC PANEL Stat 04/29/2009 3:49 PM CDT POC GLUCOSE Routine 04/29/2009 3:20 PM CDT documented in this encounter Results * (ABNORMAL) POC GLUCOSE (04/29/2009 5:35 PM CDT) [facility] GLUCOSE POC 413(H) 65 - 99 mg/dL [facility] 04/29/2009 5:35 PM CDT 04/29/2009 5:35 PM CDT us Authorized P Er POINT OF CARE TESTING Final Resu lt Performing Organization Address [facility] de Phone Number INTERFACE SYSTEM Refer to clinic/hospital department [facility] CLIA# [id number] [address] [place] [address] * (ABNORMAL) POC GLUCOSE (04/29/2009 4:42 PM CDT) GLUCOSE POC 500(AA) 65 - 99 mg/dL [facility] 04/29/2009 4:42 PM CDT 04/29/2009 4:42 PM CDT us Authorized P Er POINT OF CARE TESTING Final Resu lt Performing Organization Address [facility] de Phone Number INTERFACE SYSTEM Refer to clinic/hospital department [facility] CLIA# [id number] [address] [place] [place] [address] * (ABNORMAL) COMPREHENSIVE METABOLIC PANEL (04/29/2009 3:49 PM CDT) TOTAL PROTEIN 7.6 6.3 - 8.6 g/dL [facility] POTASSIUM 3.4(L) 3.5 - 4.9 mmol/L [facility] GLUCOSE 538(AA) 65 - 99 mg/dL [facility] Comment:Results called to Luba rodriguez at 04/29/09 16:24 and read back verified. AST 21 12 - 38 U/L [facility] BUN 8 6 - 20 mg/dL [facility] CALCIUM 9.4 8.6 - 10.2 mg/dL [facility] CHLORIDE 92(L) 96 - 108 mmol/L [facility] ALBUMIN 4.7(H) 3.2 - 4.5 g/dL [facility] CREATININE 0.54(L) 0.67 - 1.17 mg/dL [facility] SODIUM 130(L) 135 - 145 mmol/L [facility] ALT 30 0 - 41 U/L [facility] CO2 24 22 - 30 mmol/L [facility] ALKALINE PHOSPHATASE 117 40 - 129 U/L [facility] BILIRUBIN TOTAL 0.7 0.2 - 1.0 mg/dL [facility] GFR, >60 >=60 mL/min/1. 7 sq meter [facility] GFR >60 >=60 mL/min/1. 7 sq meter [facility] Comment: Modification of Diet in Renal Disease (MDRD) study formula. Estimated GFR rate interpretative information for both Americans and non- Americans is available on the [facility] Intranet at: [email or web address] Select: Lab Policies and Procedures Select: Reference Ranges - GFR 04/29/2009 3:49 PM CDT 04/29/2009 3:51 PM CDT us Akbar Piña MD CHEMISTRY ORDERABLES Edited INTERFACE SYSTEM Refer to clinic/hospital department [facility] CLIA# [id number] [address] [place] [address] * (ABNORMAL) CBC WITH DIFFERENTIAL (04/29/2009 3:49 PM CDT) WBC 8.3 4.0 - 9.8 K/uL [facility] MCH 30.2 27.2 - 32.6 pg [facility] MPV 12.3 9.3 - 12.4 fL [facility] HEMATOCRIT 44.0 40.0 - 48.0 % [facility] RDW-STDEV 35.4(L) 37.1 - 48.7 fL [facility] RBC 5.29 4.50 - 5.40 M/uL [facility] MCHC 36.4(H) 31.5 - 35.5 % [facility] MCV 83.2 82.0 - 99.0 fL [facility] PLATELETS 324 140 - 350 K/uL [facility] HEMOGLOBIN 16.0 13.6 - 16.5 g/dL [facility] RDW 12.2 11.5 - 14.5 % [facility] MONOCYTES 5 3 - 13 % [facility] MONOCYTE ABSOLUTE 0.39 0.10 - 1.30 K/uL [facility] NEUTROPHILS 58 45 - 70 % [facility] NEUTROPHIL ABSOLUTE 4.79 1.90 - 7.00 K/uL [facility] EOSINOPHILS 8(H) 0 - 7 % [facility] EOSINOPHIL ABSOLUTE 0.67 0.00 - 0.70 K/uL [facility] LYMPHOCYTES 29 16 - 45 % [facility] LYMPHOCYTE ABSOLUTE 2.40 0.70 - 4.50 K/uL [facility] BASOPHILS 1 0 - 2 % [facility] BASOPHILS ABSOLUTE 0.07 0.00 - 0.20 K/uL [facility] 04/29/2009 3:49 PM CDT 04/29/2009 3:51 PM CDT us Akbar Piña MD HEMATOLOGY ORDERABLES Edited INTERFACE SYSTEM Refer to clinic/hospital department [facility] CLIA# [id number] [address] [place] [address] * (ABNORMAL) POC GLUCOSE (04/29/2009 3:20 PM CDT) GLUCOSE POC >500(AA) 65 - 99 mg/dL [facility] 04/29/2009 3:20 PM CDT 04/29/2009 3:20 PM CDT us Authorized P Er POINT OF CARE TESTING Final Resu lt INTERFACE SYSTEM Refer to clinic/hospital department [facility] CLIA# [id number] [address] [place] [address] documented in this encounter Visit Diagnoses Not on filedocumented in this encounter Care Teams Industrial Engineering Technician Relationship Specialty Start Date End Date Jae Martínez MD PCP - General 02/22/09 documented as of this encounter
--- OUTSIDE RECORDS SUMMARY | 2025-05-16 20:03 | XMS_ITS | Encounter Summary ---
Author Organization [facility] Address 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 Gender Identity Not on file Sexual Orientation Not on file documented as of this encounter Plan of Treatment Not on file documented as of this encounter Procedures Procedure Name Priority Date/Time Associated Diagnosis Comments XR FOOT 3+ VW RIGHT Routine 09/27/2008 1 :43 PM SUSTAINABILITY CONSULTANT XR ANKLE 3+ VW RIGHT Routine 09/27/2008 1:43 PM SUSTAINABILITY CONSULTANT documented in this encounter Results * XR ANKLE 3+ VW RIGHT (09/27/2008 1:43 PM SUSTAINABILITY CONSULTANT) Anatomical Region Laterality Modality Ankle / Foot Other 09/27/2008 1:43 PM SUSTAINABILITY CONSULTANT Narrative 09/27/2008 2:44 PM SUSTAINABILITY CONSULTANT [facility] [address], [place] [address] Admit Date: 09/27/2008 LOIS TURNER Sex: M Admit Prov: PERCY SILVA Date: 1990 Primary Care Prov: PERCY SILVA CMRN: [id number] Room: BALTAZAR N: [id number] IMAGING SERVICES Ordering Prov: N/A Accession Number: [id number] Interpretation THREE VIEWS OF THE RIGHT ANKLE. 09/27/2008 History: Pain. Findings: There is soft tissue swelling over the lateral malleolus. There are two small lytic lucencies, which are well defined with sclerotic borders, in the distal tibia. These most likely represent benign cortical defects. There is no direct evidence of fracture or malalignment. . Dictated by: MARAL JOYCE 09/27/2008 13:51 Electronically signed by: MARAL JOYCE 09/27/2008 14:42 Transcribed: 09/27/2008 14:42 DKT Procedure Note Maral Joyce MD - 09/27/2008 [id number] [place], [place] [address] Admit Date: 09/27/2008 LOIS TURNER Sex: M Admit Prov: VISHNU SILVAKERRI Funk Date:1990 Primary Care Prov: VISHNU SILVAKERRI Funk CMRN: [id number] Room: JOSUÉFloyd N: [id number] IMAGING SERVICES Ordering Prov: N/A Interpretation THREE VIEWS OF THE RIGHT ANKLE. 09/27/2008 History: Pain. Findings: There is soft tissue swelling over the lateral malleolus.There are two small lytic lucencies, which are well defined withsclerotic borders, in the distal tibia. These most likely represent benigncortical defects. There is no direct evidence of fracture or malalignment. . Dictated by: MARAL JOYCE 09/27/2008 13:51 Electronically signed by: MARAL JOYCE 09/27/2008 14:42 Transcribed: 09/27/2008 14:42 DKT us Percy Silva MD DIAGNOSTIC IMAGING ORDERAB LES Final Result * XR FOOT 3+ VW RIGHT (09/27/2008 1:43 PM SUSTAINABILITY CONSULTANT) Anatomical Region Laterality Modality Ankle / Foot Other 09/27/2008 1:43 PM SUSTAINABILITY CONSULTANT Narrative 09/27/2008 2:44 PM SUSTAINABILITY CONSULTANT [address] [address] [place], [place] [address] Admit Date: 09/27/2008 LOIS TURNER Sex: M Admit Prov: PERCY SILVA Date: 1990 Primary Care Prov: PERCY SILVA CMRN: [id number] Room: BALTAZAR N: [id number] IMAGING SERVICES Ordering Prov: N/A Accession Number: [id number] Interpretation THREE VIEWS OF THE RIGHT FOOT, 09/27/2008 History: Pain. Findings: There is no evidence of fracture or malalignment. . Dictated by: MARAL JOYCE 09/27/2008 13:53 Electronically signed by: MARAL JOYCE 09/27/2008 14:42 Transcribed: 09/27/2008 14:41 DKT Procedure Note Maral Joyce MD - 09/27/2008 [address] [address] [facility] [place], [place] [address] Admit Date: 09/27/2008 LOIS TURNER Sex: M Admit Prov: PERCY SILVA Date:1990 Primary Care Prov: PERCY SILVA CMRN: [id number] Room: JOSUÉFloyd N: [id number] IMAGING SERVICES Ordering Prov: N/A Interpretation THREE VIEWS OF THE RIGHT FOOT, 09/27/2008 History: Pain. Findings: There is no evidence of fracture or malalignment. . Dictated by: MARAL JOYCE 09/27/2008 13:53 Electronically signed by: MARAL JOYCE 09/27/2008 14:42 Transcribed: 09/27/2008 14:41 DKT Percy Silva MD DIAGNOSTIC IMAGING ORDERAB LES Final Result documented in this encounter Visit Diagnoses Diagnosis Injury, other and unspecified, knee, leg, ankle, and foot documented in this encounter Care Teams Rn Operating Room Relationship Specialty Start Date End Date Jae Martínez MD PCP - General 02/22/09 documented as of this encounter
--- OUTSIDE RECORDS SUMMARY | 2025-05-16 20:03 | XMS_ITS | Encounter Summary ---
Author Organization [facility] Address 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
--- OUTSIDE RECORDS SUMMARY | 2025-05-16 20:03 | XMS_ITS | Encounter Summary ---
Author Organization [facility] Address [address] [place] [address] Phone Care Team Providers Care Bean Viner Name Role Phone Jae Martínez MD Primary Care Provider [phone] Encounter Details Date Type Department Care Team (Late st Contact Info) Description 02/03/2023 Lab Requisition [facility] [address] [place] [address] Alondra Hoyt, PULP MILL OPERATOR, MANAGER PROCESS IMPROVEMENT [address] [place] [address] Encounter for pre-employment examination Social History Tobacco Use Types Packs/Day Years Used Date Smoking Tobacco: Never Assessed Sex and Gender Information Value Date Recorded Sex Assigned at Not on file Legal Sex Male 11:13 AM CDT Gender Identity Not on file Sexual Orientation Not on file COVID-19 Exposure Response Date Recorded In the last 10 days, have yo u been in contact with someone who was confirmed or suspected to have Coronavirus/COVID-19? Unable to assess 02/03/2023 11:19 AM CDT documented as of this encounter Plan of Treatment Not on file documented as of this encounter Procedures Procedure Name Priority Date/Time Associated Diagnosis Comments QUANTIFERON-TB GOLD PLUS Routine 02/03/2023 10:30 AM CDT Encounter for pre-employment examination documented in this encounter Results * QUANTIFERON-TB GOLD PLUS (02/03/2023 10:30 AM CDT) NIL CONTROL 0.03 <8.01 IU/mL 02/08/2023 1:04 PM CDT [facility] TB ANTIGEN 1 0.04 <0.35 IU/mL 02/08/2023 1:04 PM CDT [facility] TB ANTIGEN 2 0.04 <0.35 IU/mL 02/08/2023 1:04 PM CDT [facility] MITOGEN CONTROL >10.00 >0.49 IU/mL 02/09/20 1:04 PM CDT [facility] INTEPRETATION TB NEGATIVE NEGATIVE, NEGATIVE (TB antigen response less than 25% of internal negative control value) 02/08/2023 1:04 PM CDT [facility] Comment:No immune response t o Mycobacterium tuberculosis antigens was noted. M. tuberculosis infection unlikely. Blood No Phlebotomy Charged / Unknown 02/03/2023 10:30 AM CDT 02/03/2023 12:26 PM CDT Narrative [facility] - 02/08/2023 1:04 PM CDT A POSITIVE QUANTIFERON-TB GOLD PLUS RESULT SHOULD NOT BE THE SOLE OR DEFINITIVE BASIS FOR DETERMINING INFECTION WITH M.TUBERCULOSIS. Diagnosing or excluding tuberculosis disease, and assessing the probability of LTBI, requires a combination of epidemiological, historical, medical and diagnostic findings (e.g., acid fast bacilli (AFB) smear and culture, chest xray) that should be taken into account when interpreting QFT-Plus results. Furthermore, the magnitude of the measured gamma interferon level cannot be correlated to stage or degree of infection, level of immune responsiveness, or likelihood for progression to active disease. The Nil control adjusts for background (e.g., elevated levels of circulating gamma interferon or presence of heterophile antibodies). The Mitogen control serves as an internal positive control and verifies each specimen tested can produce a gamma interferon response. Low mitogen may occur with insufficient lymphocytes, reduced lymphocyte activity due to improper specimen handling, filling/mixing of the mitogen tube, or inability of the patient's lymphocytes to generate gamma interferon. Infection with other Mycobacteria, including M. kansasii, M. szulgai, and M. marinum, may cause false positive results. A negative QuantiFERON-TB Gold Plus result does not preclude the possibility of M. tuberculosis infection or tuberculosis disease: false negative results can be due to incorrect blood sample collection/ improper handling of the specimen, stage of infection (e.g., specimen obtained prior to the development of cellular immune response), co-morbid conditions which affect immune function, or other individual immunological factors. The minimum number of lymphocytes required for a reliable test has not been established and may also be variable. Diagnostic testing for Mycobacterium tuberculosis using Interferon Gamma Release Assays should follow applicable published guidelines, including when testing in populations such as children, women, and HIV-infected or otherwise immunocompromised individuals. https://www.cdc.gov/tb/publications/guidelines/testing.htm us Alondra Hoyt APRN, CNP IMMUNOLOGY ORDERABLES F inal Result [facility] [address] [place] [address], documented in this encounter Visit Diagnoses Diagnosis Encounter for pre-employment examination Health examination of defined subpopulation documented in this encounter Care Teams Bean Viner Relationship Specialty Start Date End Date Jae Martínez MD [address] [address] PCP - General Internal Medicine 02/03/23 documented as of this encounter
--- OUTSIDE RECORDS SUMMARY | 2025-05-16 20:03 | XMS_ITS | Encounter Summary ---
Author Organization [facility] Address [address] [place] [address] Care Team Providers Care Osha Inspector Name Role Phone Jae Martínez MD Primary Care Provider [phone] Reason for Visit * Reason Onset Date Comments MEDICATION REFILL 05/16/2025 Encounter Details Date Type Department Care Team (Late st Contact Info) Description 05/16/2025 Refill [facility] - Endocrinology [address] [place] [address] Blade Saab MD [address] [place] [address] [address] [place] [address] MEDICATION REFILL Social History Tobacco Use Types Packs/Day Years Used Date Smoking Tobacco: Never Smokeless Tobacco: Never Alcohol Use Standard Drinks/Week Comments Not Asked 0 (1 standard drink = 0.6 oz pur e alcohol) PHQ-2 Answer Date Recorded PHQ2 TOTAL SCORE 0 03/28/2021 Sex and Gender Information Value Date Recorded Sex Assigned at Not on file Legal Sex Male 5:51 AM GOAL UMPIRE Gender Identity Not on file Sexual Orientation Not on file documented as of this encounter Miscellaneous Notes * Telephone Encounter - Lela Martin MA - 05/16/2025 9:28 AM CDT DOES NOT MEET PROTOCOL SENT TO PROVIDER FOR REVIEW Please sign order and advise on follow up and quantity. Refill Request Last visit: 06/09/2024 Future appointment date: Provider Department Center 08/28/2025 9:45 AM Blade Saab [facility] End[facility]ology documented in this encounter Plan of Treatment Upcoming Encounters Date Type Department Care Team (Late st Contact Info) Description 08/28/2025 9:45 AM CDT Office Visit [facility] End[facility]ology [address] [place] [address] Blade Saab MD [address] [place] [id number] documented as of this encounter Goals Goal Patient Goal Type Associated Problems Recent Progress Patient-Stated? Author Have labs drawn Lifestyle No Rehana Shipman documented as of this encounter Visit Diagnoses Not on filedocumented in this encounter Care Teams Osha Inspector Relationship Specialty Start Date End Date Jae Martínez MD PCP - General Internal Medicine 10/31/15 documented as of this encounter
--- OUTSIDE RECORDS SUMMARY | 2025-05-16 20:03 | XMS_ITS | Encounter Summary ---
Author Organization [employer] Address 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
--- OUTSIDE RECORDS SUMMARY | 2025-05-16 20:04 | XMS_ITS | Clinical Summary ---
Author Organization [facility] Address [address] [place] [id number] Phone Care Team Providers Care Dredge Pipeman Name Role Phone Jae Martínez MD Primary Care Provider [phone] Allergies No known active allergies Medications blood sugar diagnostic (ONE TOUCH ULTRA TEST) Misc StrpIndications:T ype II or unspecified type diabetes mellitus without mention of complication, uncontrolled QID AO and HS 200 Strip 2 1 Active lisinopriL (PRINIVIL) 10 mg tablet Take 10 mg by mouth daily at bedtime. Active pantoprazole (PROTONIX) 40 mg Tablet, Delayed Release (E.C.) Take 40 mg by mouth daily. 4 Active metoclopramide HCl (REGLAN) 10 mg tablet Take 10 mg by mouth 3 times daily before meals. 4 Active ondansetron (ZOFRAN ODT) 4 mg Tablet, Rapid Dissolve Place 4 mg under tongue every 8 hours as needed for Nausea/Emesi s. 4 Active insulin aspart U-100 (NovoLOG) 100 unit/mL vial INJECT 90 UNITS TOTAL DAILY DOSE VIA INSULIN PUMP 4 Active Active Problems Problem Noted Date Diagnosed Date Abdominal pain 05/14/2025 Protein-calorie malnutrition, severe 06/25/2024 DM (diabetes mellitus), type 1 06/23/2024 Insulin pump status 06/23/2024 BISMARK (acute kidney injury) 06/23/2024 Nausea & vomiting 06/23/2024 Abnormal findings on esophagogastroduodenoscopy (EGD) 06/23/2024 Constipation 06/23/2024 Elevated blood pressure read ing without diagnosis of hypertension 06/23/2024 History of cataract surgery 04/23/2014 Overview (04/23/2014): Left eye - Dr Hickman Family history of diabetes mellitus 02/22/2009 Resolved Problems Problem Noted Date Diagnosed Date Resolved Date Hypertriglyceridemia 09/17/2009 024 Encounters Date Type Department Care Team Description 05/15/2025 External Device Data [facility] ABSTRACTION Provider, Abstract 05/15/2025 External Device Data [facility] ABSTRACTION Provider, Abstract 05/15/2025 External Device Data [facility] ABSTRACTION Provider, Abstract 05/14/2025 3:07 PM CDT - 05/15/2025 2:12 PM CDT Hospital Encounter [facility] [address] [place] [address] Lauri Gallardo MD Pfeiffer, Paul Rei, DO Freie, Jordan A, MD YeCindy MD Abdominal pain Discharge Disposition: Home or Self Care 05/14/2025 Travel 05/08/2025 External Device Data [facility] ABSTRACTION Provider, Abstract 05/01/2025 External Device Data [facility] ABSTRACTION Provider, Abstract 04/24/2025 External Device Data [facility] ABSTRACTION Provider, Abstract 04/24/2025 External Device Data [facility] ABSTRACTION Provider, Abstract 04/17/2025 External Device Data [facility] ABSTRACTION Provider, Abstract 04/05/2025 External Device Data [facility] ABSTRACTION Provider, Abstract 03/20/2025 External Device Data [facility] ABSTRACTION Provider, Abstract from Last 3 Months Family History Medical History Relation Name Comments Other Mother obesity Diabetes Paternal Uncle Relation Name Status Comments Mother Paternal Uncle Social History Tobacco Use Types Packs/Day Years [...] on file 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[employer] Gender Identity Not on file Sexual Orientation Not on file Last Filed Vital Signs Vital Sign Reading [...] Mass Index 33.91 05/14/2025 12:45 PM CDT Plan of Treatment Health Maintenance Due Date Last Done Comments DTAP/TDAP/TD VACCINES (1 - Tdap) 2009 HEPATITIS B VACCINES (1 of 3 - 19+ 3-dose series) 2009 DIABETES ANNUAL RETINAL EXAM 01/13/2015 01/13/2014 DIABETES MICROALBUMIN ANNUAL SCREEN 04/23/2015 04/23/2014, 04/20/2013, 12/22/2011, Additional history exists LDL CHOLESTEROL ANNUAL 04/23/2015 4, 04/20/2013, 12/22/2011, Additional history exists COVID-19 Vaccine ( season) 2024 01/09/2021, 12/12/2020 DIABETES HBA1C Q 6 MONTHS 12/10/20242023, 06/18/2023, 03/28/2021, Additional history exists DIABETES ANNUAL FOOT EXAM 06/09/20252023, 04/20/2013, 12/22/2011 INFLUENZA VACCINE (#1) 2025 HPV VACCINES Aged Out No longer eligi ble based on patient's age to complete this topic Procedures Procedure Name Priority Date/Time Associated Diagnosis Comments POC GLUCOSE Routine 05/15/2025 12:24 PM CDT POC GLUCOSE Routine 05/15/2025 8:57 AM CDT POC GLUCOSE Routine 05/15/2025 5:16 AM CDT COMPREHENSIVE METABOLIC PANEL Routine 05/15/2025 1:09 AM CDT CBC WITHOUT DIFFERENTIAL Routine 05/15/2025 1:09 AM CDT MAGNESIUM LEVEL Routine 05/15/2025 1:09 AM CDT POC GLUCOSE Routine 05/15/2025 12:42 AM CDT TROPONIN 6 HR, 5TH GEN Timed Study 05/14/2025 10:50 PM CDT POC GLUCOSE Routine 05/14/2025 10:15 PM CDT BLOOD GAS VENOUS Stat 05/14/2025 5:[address] ABDOMEN PELVIS W CONTRAST Stat 05/14/2025 5:39 PM CDT TSH REFLEXIVE Stat 05/14/2025 4:08 PM CDT LIPASE Stat 05/14/2025 4:08 PM CDT TROPONIN 2 HR, 5TH GEN Timed Study 05/14/2025 4:08 PM CDT EKG 12-LEAD Stat 05/14/2025 3:25 PM CDT DRUG SCREEN, URINE Stat 05/14/2025 2: 28 PM CDT URINALYSIS W/REFLEX MICROSCOPIC Stat 05/14/2025 2:28 PM CDT TROPONIN BASELINE, 5TH GEN Stat 05/14/2025 2:00 PM CDT PHOSPHORUS Stat 05/14/2025 2:00 PM CDT MAGNESIUM LEVEL Stat 05/14/2025 2:00 PM CDT COMPREHENSIVE METABOLIC PANEL Stat 05/14/2025 2:00 PM CDT CBC WITH DIFFERENTIAL Stat 05/14/2025 2:00 PM CDT CRITICAL CARE Routine 05/14/2025 12:30 PM CDT MICROALBUMIN/CREATINI NE RATIO, RANDOM UR Routine 04/23/2014 7:42 PM CDT Routine general medical examination at a health care facility DM w/o complication type II, uncontrolled LDL CHOLESTEROL, DIRECT Routine 04/23/2014 7:42 PM CDT Routine general medical examination at a health care facility DM w/o complication type II, uncontrolled HEMOGLOBIN A1C Routine 04/23/2014 7:42 PM CDT Routine general medical examination at a health care facility DM w/o complication type II, uncontrolled from Last 3 Months or Most Recently Relevant to Health Maintenance Results * (ABNORMAL) POC GLUCOSE (05/15/2025 12:24 PM CDT) Only the most recent of5 resultswithin the time period is included. GLUCOSE POC 173(H) 74 - 99 mg/dL 05/15/2025 12:24 PM CDT [facility] SPECIMEN SOURCE, GLUCOSE POC Whole Blood 05/15/2025 12:24 PM CDT [facility] Blood, whole 05/15/2025 12:2 4 PM CDT 05/15/2025 12:34 PM CDT Cindy Estrada MD POINT OF CARE TESTING Final Resu lt [facility] CLIA# [id number] [address] [place] [address] * (ABNORMAL) CBC WITHOUT DIFFERENTIAL (05/15/2025 1:09 AM CDT) [facility] WBC 14.2(H) 4.0 - 9.8 K/uL 05/15/2025 2:38 AM CDT [facility] RBC 4.63 4.50 - 5.40 M/uL 05/15/2025 2:38 AM CDT [facility] HEMOGLOBIN 13.6 13.6 - 16.5 g/dL 05/15/2025 2:38 AM CDT [facility] HEMATOCRIT 39.0(L) 40.0 - 48.0 % 05/15/2025 2:38 AM CDT [facility] MCV 84.2 82.0 - 99.0 fL 05/15/2025 2:38 AM CDT [facility] MCH 29.4 27.2 - 32.6 pg 05/15/2025 2:38 AM CDT [facility] MCHC 34.9 31.5 - 35.5 g/dL 05/15/2025 2:38 AM CDT [facility] PLATELETS 369(H) 140 - 350 K/uL 05/15/2025 2:38 AM CDT [facility] [employer] [facility] - [facility] MPV 11.2 9.3 - 12.4 fL 05/15/2025 2:38 AM CDT [facility] RDW 12.8 11.5 - 14.5 % 05/15/2025 2:38 AM CDT [facility] RDW-STDEV 38.7 37.1 - 48.7 fL 05/15/2025 2:38 AM CDT [facility] Blood Venipuncture / Unknown 05/15/2025 1:09 AM CDT 05/15/2025 2:07 AM CDT us Bebe Otto MD HEMATOLOGY ORDERABLES Final Re sult [facility] CLIA# [id number] [address] [place] [address] * (ABNORMAL) MAGNESIUM LEVEL (05/15/2025 1:09 AM CDT) Only the most recent of2 resultswithin the time period is included. MAGNESIUM 1.4(L) 1.6 - 2.6 mg/dL 05/15/2025 2:41 AM CDT [facility] Blood Venipuncture / Unknown 05/15/2025 1:09 AM CDT 05/15/2025 2:07 AM CDT Bebe Otto MD CHEMISTRY ORDERABLES Final Res ult [facility] [facility] CLIA# [id number] [address] [place] [address] * (ABNORMAL) COMPREHENSIVE METABOLIC PANEL (05/15/2025 1:09 AM CDT) Only the most recent of2 resultswithin the time period is included. SODIUM 136 136 - 145 mmol/L 05/15/2025 2:41 AM CDT [facility] - . [facility] POTASSIUM 3.9 3.5 - 5.0 mmol/L 05/15/2025 2:41 AM T [facility] - . [facility] CHLORIDE 102 98 - 107 mmol/L 05/15/2025 2:41 AM CDT [facility] CO2 23 22 - 29 mmol/L 05/15/2025 2:41 AM CDT [facility] CALCIUM 8.9 8.6 - 10.2 mg/dL 05/15/2025 2:41 AM CDT [facility] BUN 13 6 - 20 mg/dL 05/15/2025 2:41 AM T [facility] CREATININE 1.19(H) 0.67 - 1.17 mg/dL 05/15/2025 2:41 AM T [facility] GLUCOSE 154(H) 74 - 99 mg/dL 05/15/2025 2:41 AM [facility] TOTAL PROTEIN 6.9 6.7 - 8.6 g/dL 05/15/2025 2:41 AM [facility] ALBUMIN 3.8 3.5 - 5.2 g/dL 05/15/2025 2:41 AM [facility] BILIRUBIN TOTAL 0.4 0.0 - 1.2 mg/dL 05/15/2025 2:41 AM [facility] ALKALINE PHOSPHATASE 118 40 - 129 U/L 05/15/2025 2:41 AM [facility] AST 17 <41 U/L 05/15/2025 2:41 AM [facility] ALT 15 <42 U/L 05/15/2025 2:41 AM [facility] GFR >60 >=60 mL/min/1.7 3 sq meter 05/15/2025 2:41 AM [facility] Comment:eGFR calculated with 2020 CKD-EPI equation. Vegetarian diet, extremely high or low muscle mass, and may affect results. Cystatin C with Glomerular Filtration Rate is a suitable alternative for these patients. ANION GAP 11 8 - 16 mmol/L 05/15/2025 2:41 AM [facility] Blood Venipuncture / Unknown 05/15/2025 1:09 AM CDT 05/15/2025 2:07 AM CDT [facility] - 05/15/2025 2:41 AM CDT Samples containing indocyanine green cause interferences on Total and/or Direct Bilirubin and must not be measured. us Bebe Otto MD CHEMISTRY ORDERABLES Final Res ult [facility] CLIA# [id number] [address] [facility] [place] [place] [address] * (ABNORMAL) TROPONIN 6 HR, 5TH GEN (05/14/2025 10:50 PM CDT) Pathologist [facility] TROPONIN T, 6 HR 5TH GEN 22(H) <=15 ng/L 05/14/2025 11:19 PM CDT [facility] DELTA 6HR TROPONIN T 8 See Interp. 05/14/2025 11:19 PM CDT [facility] Blood Venipuncture / Unknown 05/14/2025 10:50 PM CDT 05/14/2025 10:54 PM CDT Narrative [facility] - 05/14/2025 11:19 PM CDT Troponin elevated. Delta indeterminate. Delay in collection of timed specimen beyond recommended collection interval. Results must be interpreted in clinical context. us Bebe Otto MD CHEMISTRY ORDERABLES Final Res ult [facility]# [id number] [address] [facility] [place] [address] * (ABNORMAL) BLOOD GAS VENOUS (05/14/2025 5:55 PM CDT) [facility] PH BLOOD POC 7.31(L) 7.32 - 7.43 05/14/2025 5:55 PM CDT [facility] PCO2 POC 44 38 - 50 mm Hg 05/14/2025 5:55 PM CDT [facility] PO2 POC 35 25 - 40 mm Hg 05/14/2025 5:55 PM CDT [facility] HCO3 (CALC) POC 22 22 - 29 mmol/L 05/14/2025 5:55 PM CDT [facility] HEMOGLOBIN POC 13.5(L) 13.6 - 16.5 g/dL 05/14/2025 5:55 PM CDT [facility] O2 SATURATION POC 64 40 - 70 % 05/14/2025 5:55 PM CDT [facility] HEMATOCRIT POC 41 40 - 48 % 05/14/2025 5:55 PM CDT [facility] Comment:Estimated Value PH TEMP CORRECT 7.31(L) 7.32 - 7.43 05/14/2025 5:55 PM CDT [facility] PCO2 TEMP CORRECT 44 38 - 50 mm Hg 05/14/2025 5:55 PM CDT [facility] PO2 TEMP CORRECT 35 25 - 40 mm Hg 05/14/2025 5:55 PM CDT [facility] SPECIMEN SOURCE, GASES POC Venous 05/14/2025 5:55 PM CDT [facility] COMMENT, GASES POC Responsible Clinical Caregiver notified 05/14/2025 5:55 PM CDT [facility] PATIENT'S TEMPERATURE POC 37.0 degrees 05/14/2025 5:55 PM CDT [facility] Blood, venous 05/14/2025 5:5 5 PM CDT 05/14/2025 5:57 PM CDT Keegan Jones DO ABG ORDERABLES Final Resul t [facility]# [id number] [address] [facility] [place] [address] * CT ABDOMEN PELVIS W CONTRAST (05/14/2025 5:39 PM CDT) Anatomical Region Laterality Modality Abdomen Computed Tomogra phy 05/14/2025 5:33 PM CDT Impressions 05/14/2025 6:03 PM CDT IMPRESSION: 1. No acute inflammatory process identified within the abdomen or pelvis. DICTATION LOCATION: Location 1 - [facility] Narrative 05/14/2025 6:[address] ABDOMEN PELVIS [...] BULK PACK) Given:100 mL Ordering provider: LAURI GLALARDO History: 34 years Male with Nausea and [...] or pelvis. DICTATION LOCATION: Location 1 - [facility] Lauri Gallardo MD CT ORDERABLES Final Resul t * TROPONIN 2 HR, 5TH GEN (05/14/2025 4:08 PM CDT) TROPONIN T, 2 HR 5TH GEN 13 <=15 ng/L 05/14/2025 5:37 PM CDT [facility] DELTA 2HR TROPONIN T -1 See Interp. 05/14/2025 5:37 PM CDT [facility] Blood Venipuncture / Unknown 05/14/2025 4:08 PM CDT 05/14/2025 4:29 PM CDT Narrative [facility] - 05/14/2025 5:37 PM CDT Troponin Detectable but normal range. Delta not changing. Delay in collection of timed specimen beyond recommended collection interval. Results must be interpreted in clinical context. Lauri Gallardo MD CHEMISTRY ORDERABLES Final Result Performing Organization Address City/[facility]/ZIP Co de Phone Number [facility] CLUT# [id number] [address] [place] [address] * TSH REFLEXIVE (05/14/2025 4:08 PM CDT) TSH 0.39 0.27 - 4.20 uIU/mL 05/14/2025 6:05 PM CDT [facility] Blood Venipuncture / Unknown 05/14/2025 4:08 PM CDT 05/14/2025 4:29 PM CDT Keegan Jones DO CHEMISTRY ORDERABLES Final Result [facility] CLIA# [id number] [address] [place] [address] * (ABNORMAL) LIPASE (05/14/2025 4:08 PM CDT) LIPASE 10(L) 13 - 60 U/L 05/14/2025 6:40 PM CDT [facility] Blood Venipuncture / Unknown 05/14/2025 4:08 PM CDT 05/14/2025 4:29 PM CDT Keegan Jones DO CHEMISTRY ORDERABLES Final Result [facility] CLIA# [id number] [address] [place] [address] * EKG 12-LEAD (05/14/2025 3:25 PM CDT) 05/14/2025 3:25 PM CDT Narrative INTERFACE SYSTEM - 05/14/2025 4:44 [place] [address] Test Date: 2025-05-14 Pat Name: PARKROSAMARIA BURNSR Department: 38 Room: [place] [address] Gender: Male 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1990 Requested By: LAURI eMndoza Order Number: [id number] Nicolette MD: Sina Stone Measurements Intervals [place] Rate: 79 P: 3 CT: 149 QRS: -12 QRSD: 91 T: 37 QT: 371 QTc: 426 Interpretive Statements Sinus arrhythmia Inferior infarct, old Electronically Signed On 05-14-2025 16:44:40 CDT by Sina Stone Procedure Note Sina Stone MD - 05/14/2025 [place] [address] Test Date: 2025-05-14 Pat Name: PARK YUE Department: 38 Room: [place] [address] Gender: Male 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1990 Requested By: LAURI GALLARDO U Order Number: [id number] [place] MD: Sina Stone Measurements Intervals [place] Rate: 79 P: 3 CT: 149 QRS: -12 QRSD: 91 T: 37 QT: 371 QTc: 426 Interpretive Statements Sinus arrhythmia Inferior infarct, old Electronically Signed On 05-14-2025 16:44:40 CDT by Sina Stone us Lauri Gallardo MD ECG ORDERABLES Final Resul t INTERFACE SYSTEM Refer to clinic/hospital department * DRUG SCREEN, URINE (05/14/2025 2:28 PM CDT) Pathologist [facility] AMPHETAMINE QUAL, URINE Negative Negative 05/14/2025 5:59 PM CDT [facility] BARBITURATE QUAL, URINE Negative Negative 05/14/2025 5:59 PM CDT [facility] BENZODIAZEPINE QUAL, URINE Negative Negative 05/14/2025 5:59 PM CDT [facility] COCAINE QUAL URINE Negative Negative 2024 5:59 PM CDT [facility] OPIATE QUAL, URINE Negative Negative 2024 5:59 PM CDT [facility] CANNABINOIDS QUAL, URINE Negative Negative 05/14/2025 5:59 PM CDT [facility] PCP QUAL, URINE Negative Negative 5:59 PM CDT [facility] OXYCODONE QUAL, URINE Negative Negative 05/14/2025 5:59 PM CDT [facility] METHADONE QUAL, URINE Negative Negative 05/14/2025 5:59 PM CDT [facility] FENTANYL QUAL, URINE Negative Negative 05/14/2025 5:59 PM CDT [facility] CREATININE, URINE 176.0 40.0 - 278.0 mg/dL 05/14/2025 5:59 PM CDT [facility] Comment:Reference Range vari es with fluid intake and diet. Urine URINE SPECIMEN OBTAINED BY CLEAN CATCH PROCEDURE / Unknown 05/14/2025 2:28 PM CDT 05/14/2025 2:28 PM CDT Narrative [facility] - 05/14/2025 5:59 PM CDT This test [...] Negative 25 ng/mL Fentanyl Negative 5 ng/mL Keegan Jones DO URINE ORDERABLES Final Resu lt [facility]# [id number] [address] [facility] [address] [place] [address] * (ABNORMAL) URINALYSIS WITH REFLEX MICROSCOPIC (05/14/2025 2:28 PM CDT) COLOR UA Yellow Pale to Dark Yellow 05/14/2025 2:40 PM CDT [facility] CLARITY UA Clear Clear 05/14/2025 2:40 PM CDT [facility] SPECIFIC GRAVITY UA 1.023 1.003 - 1.035 05/14/2025 2:40 PM CDT [facility] PH UA 5.0 5.0 - 8.0 05/14/2025 2:40 PM CDT [facility] LEUKOCYTE ESTERASE UA Negative Negative 05/14/2025 2:40 PM CDT [facility] NITRITE UA Negative Negative 05/14/2025 2:40 PM CDT [facility] PROTEIN UA 3+(A) Negative 05/14/2025 2:40 PM CDT [facility] GLUCOSE UA 2+(A) Negative 05/14/2025 2:40 PM CDT [facility] KETONES UA Negative Negative 05/14/2025 2:40 PM CDT [facility] UROBILINOGEN UA Normal <2.0 mg/dL 2:40 PM CDT [facility] BILIRUBIN UA Negative Negative 05/14/2025 2:40 PM CDT [facility] BLOOD UA 1+(A) Negative 05/14/2025 2:40 PM CDT [facility] WBC UA 0-2 0 - 2 /hpf 05/14/2025 2:40 PM CDT [facility] RBC UA 6-10(A) 0 - 2 /hpf 05/14/2025 2:40 PM CDT [facility] BACTERIA UA Negative Negative /hpf 05/14/2025 2:40 PM CDT [facility] HYALINE CAST 6-10(A) None Seen, 0-2 /lpf 05/14/2025 2:40 PM CDT [facility] Urine URINE SPECIMEN OBTAINED BY CLEAN CATCH PROCEDURE / Unknown 05/14/2025 2:28 PM CDT 05/14/2025 2:28 PM CDT Lauri Gallardo MD URINE ORDERABLES Final Resu lt [facility] CLUT# [id number] [address] [facility] [place] [address] * TROPONIN BASELINE, 5TH GEN (05/14/2025 2:00 PM CDT) TROPONIN T, BASELINE 5TH GEN 14 <=15 ng/L 05/14/2025 3:32 PM CDT [facility] Blood Venipuncture / Unknown 05/14/2025 2:00 PM CDT 05/14/2025 2:12 PM CDT Narrative [facility] - 05/14/2025 3:32 PM CDT Troponin Detectable but normal range. Lauri Gallardo MD CHEMISTRY ORDERABLES Final Result [facility] CLIA# [id number] [address] [place] [address] * (ABNORMAL) CBC WITH DIFFERENTIAL (05/14/2025 2:00 PM CDT) [facility] Signature WBC 11.2(H) 4.0 - 9.8 K/uL 05/14/2025 2:29 PM CDT [facility] RBC 4.72 4.50 - 5.40 M/uL 05/14/2025 2:29 PM CDT [facility] HEMOGLOBIN 14.0 13.6 - 16.5 g/dL 05/14/2025 2:29 PM CDT [facility] HEMATOCRIT 40.3 40.0 - 48.0 % 05/14/2025 2:29 PM CDT [facility] MCV 85.4 82.0 - 99.0 fL 05/14/2025 2:29 PM CDT [facility] MCH 29.7 27.2 - 32.6 pg 05/14/2025 2:29 PM CDT [facility] MCHC 34.7 31.5 - 35.5 g/dL 05/14/2025 2:29 PM CDT [facility] RDW 12.8 11.5 - 14.5 % 05/14/2025 2:29 PM CDT [facility] - . [facility] RDW-STDEV 39.7 37.1 - 48.7 fL 05/14/2025 2:29 PM CDT [facility] PLATELETS 347 140 - 350 K/uL 05/14/2025 2:29 PM CDT [facility] MPV 10.9 9.3 - 12.4 fL 05/14/2025 2:29 PM CDT [facility] NEUTROPHILS 81 % 05/14/2025 2:29 PM CDT [facility] LYMPHOCYTES 14 % 05/14/2025 2:29 PM CDT [facility] MONOCYTES 3 % 05/14/2025 2:29 PM CDT [facility] EOSINOPHILS 0 % 05/14/2025 2:29 PM CDT [facility] BASOPHILS 1 % 05/14/2025 2:29 PM CDT [facility] - . [facility] IMMATURE GRANULOCYTES 0 % 05/14/2025 2:29 PM CDT [facility] - . [facility] NEUTROPHIL ABSOLUTE 9.10(H) 1.90 - 7.00 K/uL 05/14/2025 2:29 PM CDT [facility] - . [facility] LYMPHOCYTE ABSOLUTE 1.59 0.70 - 4.50 K/uL 05/14/2025 2:29 PM CDT [facility] - . [facility] MONOCYTE ABSOLUTE 0.36 0.10 - 1.30 K/uL 05/14/2025 2:29 PM CDT [facility] - . [facility] EOSINOPHIL ABSOLUTE 0.04 0.00 - 0.70 K/uL 05/14/2025 2:29 PM CDT [facility] LABORATORY SERVICES - . [facility] BASOPHILS ABSOLUTE 0.07 0.00 - 0.20 K/uL 05/14/2025 2:29 PM CDT [facility] LABORATORY SERVICES - . [facility] IMMATURE GRANULOCYTES ABSOLUTE 0.04(H) 0.00 - 0.03 K/uL 05/14/2025 2:29 PM CDT [facility] LABORATORY SERVICES - [facility] Blood Venipuncture / Unknown 05/14/2025 2:00 PM CDT 05/14/2025 2:12 PM CDT Lauri Gallardo MD HEMATOLOGY ORDERABLES Final Result [facility] [employer] [facility]# [id number] [address] [place], [place] [address] * (ABNORMAL) PHOSPHORUS (05/14/2025 2:00 PM CDT) PHOSPHORUS 2.3(L) 2.5 - 4.5 mg/dL 05/14/2025 3:32 PM CDT [facility] Blood Venipuncture / Unknown 05/14/2025 2:00 PM CDT 05/14/2025 2:[address] [facility] Lauri Gallardo MD CHEMISTRY ORDERABLES Final Result Performing Organization Address City/[facility]/ZIP Co de Phone Number [facility] [employer] [facility]# [id number] [address] [place] [address] * Critical Care (05/14/2025 12:30 PM CDT) Narrative Keegan Jones DO - 05/14/2025 12:30 PM CDT Keegan Jones DO 05/14/2025 6:19 PM Critical Care Performed by: Keegan Jones DO [...] no Care discussed with: admitting provider Result [facility] Keegan Jones DO PROCEDURE/MINOR SURGICAL OR DERABLES Final Result * MICROALBUMIN/CREATININE RATIO, RANDOM UR (04/23/2014 7:42 PM CDT) MICROALBUMIN/C REAT RATIO, UR 9 0 - 29 mg/g creatinine [facility] [employer] [facility] Urine 04/23/2014 7:42 PM CDT 04/23/2014 9:02 PM CDT Comment:URINE Result [facility] Jae Martínez MD URINE ORDERABLES Final Result Performing Organization Address City/[facility]/ZIP Co de Phone Number [facility] [employer] [facility]# [id number] [address] [place] [address] * LDL CHOLESTEROL, DIRECT (04/23/2014 7:42 PM CDT) LDL CHOLESTEROL, DIRECT 72 <=99 mg/dL [facility] Blood 04/23/2014 7:42 PM CDT 04/23/2014 9:02 PM CDT Jae Martínez MD CHEMISTRY ORDERABLES Final Resul t Performing Organization Address [facility] de Phone Number [facility] CLIA# [id number] [address] [place] [address] * (ABNORMAL) HEMOGLOBIN A1C (04/23/2014 7:42 PM CDT) HEMOGLOBIN A1C 11.4(H) 4.1 - 6.1 % of Hgb [facility] EST. AVG GLUCOSE, A1C 280 mg/dL [facility] Comment: The reported estimated average glucose (eAG) based on the HbA1c determination is calculated using the ADAG study equation. Further interpretative information is available in the Laboratory Services Policy Manual on the [facility] Intranet at: [email or web address]/ Blood 04/23/2014 7:42 PM CDT 04/23/2014 9:02 PM CDT Jae Martínez MD CHEMISTRY ORDERABLES Final Resul t Performing Organization Address [facility] Co de Phone Number [facility]# [id number] [address] [place] [address] from Last 3 Months or Most Recently Relevant to Health Maintenance Insurance [employer] C20 Advance Directives For more information, please contact: [phone] * Full Code (Latest Code Status on File) Date Activated Date Inactivated Comments 05/14/2025 9:07 PM 05/15/2025 4:27 PM * Full Code Date Activated Date Inactivated Comments 06/23/2024 11:22 PM 06/25/2024 12:12 PM Care Teams Dredge Pipeman Relationship Specialty Start Date End Date Jae Martínez MD PCP - General 02/22/09
--- OUTSIDE RECORDS SUMMARY | 2025-05-16 20:04 | XMS_ITS | Clinical Summary ---
Author Organization [employer] Address [address] [place] [address] Care Team Providers Care Commodities Requirements Analyst Name Role Phone Jae Martínez MD Primary Care Provider [phone] Source Comments [facility],non-owned Affiliates and Associated Physician Practices is amultiple site organization consisting of ambulatory clinics and hospital sitesin [place], [place], [place] and [place]. This disclosure is being madepursuant to the Care Everywhere program and may not contain all information available regarding this patient. Last updated 18.[facility] Allergies No known active allergies Medications * Be aware that medications may not be up to date on this document. Alwaysverify current medications with the patient. brimonidine (ALPHAGAN) 0.2 % ophthalmic solution INSTILL 1 DROP INTO RIGHT EYE TWICE A DAY 4 01/05/20 19 Active Accu-Chek Guide test strip USE 1 (ONE) STRIP 4 TIMES DAILY USE WITH ACCU-CHEK GUIDE LINK 300 strip 5 06/30/20 22 Active Continuous Blood Gluc Transmit (Dexcom G6 Transmitter) MISCIndications: Type 1 diabetes mellitus without complication (HCC) USE DIRECTED EVERY 90 DAYS 1 Each 3 11/19/19 24 Active Blood Glucose Monitoring Suppl (Accu-Chek Guide) w/Device KITIndications:T ype 1 diabetes mellitus without complication (HCC) Use 1 Each as directed 1 Each 12/03/19 24 Active ondansetron (Zofran) 4 MG tablet Take 1 (one) tablet by mouth every 6 hours as needed for Nausea/Vomi ting 60 tablet 3 06/09/20 24 Active pantoprazole EC (Protonix) 40 MG tablet Take 1 (one) tablet by mouth once daily 06/16/20 24 Active insulin aspart (NovoLOG) vialIndications: Type 1 diabetes mellitus without complication (HCC) Inject 90 units total daily dose via insulin pump 90 mL 01/30/20 25 Active insulin lispro (HumaLOG) 100 UNIT/ML vial 90 units TDD via insulin pump 90 mL 1 02/03/20 25 Active lisinopril (Prinivil; Zestril) 10 MG tabletIndication s:Type 1 diabetes mellitus without complication (HCC) Take 1 (one) tablet by mouth once daily 90 tablet 3 03/02/20 25 Active Continuous Glucose Sensor (Dexcom G7 Sensor) MISCIndications: Type 1 diabetes mellitus without complication (HCC) Use 1 Each every 10 days 9 Each 03/05/20 25 Active sildenafil (Revatio) 20 MG tabletIndication s:Type 1 diabetes mellitus without complication (HCC) TAKE 1 TO 5 TABLETS BY MOUTH BEFORE SEXUAL ACTIVITY, UP TO ONCE DAILY OR DIRECTED BY YOUR PRESCRIBER. 90 tablet 04/24/20 25 Active Insulin Disposable Pump (Omnipod 5 [id number] Pods Gen 5) MISCIndications: Type 1 diabetes mellitus without complication (HCC) Use 1 Each every 2 days 45 Each 1 04/27/20 25 Active metoclopramide (Reglan) 10 MG tablet Take 1 (one) tablet by mouth 3 times daily before meals 270 tablet 1 05/16/20 25 Active metoclopramide (Reglan) 10 MG tablet Take 1 (one) tablet by mouth 3 times daily before meals 90 tablet 1 06/09/20 24 025 Discontinued(Re order) sildenafil (Revatio) 20 MG tabletIndication s:Type 1 diabetes mellitus without complication (HCC) Take 1 to 5 tablets by mouth before sexual activity, up to once daily or as directed by your prescriber. 90 tablet 03/02/20 25 025 Discontinued Insulin Disposable Pump (Omnipod 5 [id number] Pods Gen 5) MISCIndications: Type 1 diabetes mellitus without complication (HCC) Use 1 Each every 3 days 30 Each 03/05/20 25 025 Discontinued(Re order) Active Problems Problem Noted Date Diagnosed Date History of cataract surgery 04/23/2014 Overview (06/09/2024): Left eye - Dr Hickman Type 2 diabetes mellitus 09/17/2009 Overview (06/09/2024): Non compliance with follow up and eye exams Hypertriglyceridemia 09/17/2009 Family history of diabetes mellitus 02/22/2009 Resolved Problems Problem Noted Date Diagnosed Date Resolved Date Dehydration 05/15/2024 06/23/2024 Encounters Date Type Department Care Team Description 05/16/2025 Refill [facility] Endocrinology [address] [place] [phone] Blade Saab MD MEDICATION REFILL 04/24/2025 Refill [facility] Endocrinology [address] [place] [phone] Blade Saab MD Refill Request 03/03/2025 Refill [facility] Endocrinology [address] [place] [phone] Blade Saab MD MEDICATION REFILL 02/28/2025 Refill [facility] Endocrinology [address] [place] [phone] Blade Saab MD MEDICATION REFILL from Last 3 Months Social History Tobacco Use Types Packs/Day Years Used Date Smoking Tobacco: Never Smokeless Tobacco: Never Alcohol Use Standard Drinks/Week Comments Not Asked 0 (1 standard drink = 0.6 oz pur e alcohol) PHQ-2 Answer Date Recorded PHQ2 TOTAL SCORE 0 03/28/2021 Sex and Gender Information Value Date Recorded Sex Assigned at Not on file 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 Gender Identity Not on file Sexual Orientation Not on file Last Filed Vital Signs Vital Sign Reading Time Taken Comments Blood Pressure 131/73 06/21/2024 9:35 AM CDT Pulse 104 06/09/2024 1:44 PM CDT Temperature 36.7 C (98 F) 03/11/2011 1:15 PM CDT Respiratory Rate - - Oxygen Saturation 98% 06/09/2024 1:44 PM CDT Inhaled Oxygen Concentration - - Weight 98.9 kg (218 lb) 06/21/2024 9:35 AM CDT Height 182.9 cm (6') 06/21/2024 9:35 AM CDT Body Mass Index 29.57 06/21/2024 9:35 AM CDT Plan of Treatment Upcoming Encounters Date Type Department Care Team (Late st Contact Info) Description 08/28/2025 9:45 AM CDT Office Visit [facility] - Endocrinology [address] [place] [phone] Blade Saab MD [address] [place] [address] Health Maintenance Due Date Last Done Comments HIV SCREENING 2005 HEPATITIS C SCREENING 08/27/2008 DTAP/TDAP/TD VACCINES (1 - Tdap) 2009 HEPATITIS B VACCINE (1 of 3 - 19+ 3-dose series) 2009 PNEUMOCOCCAL VACCINE (1 of 2 - PCV) 2009 DIABETES RETINOPATHY SCREENING 06/09/2024 DIABETES-SERUM CREATININE 06/18/20242022, 03/28/2021, 04/22/2018, Additional history exists COVID-19 VACCINE ( - season) 2024 DEPRESSION SCREENING 11/15/2024 DIABETES - URINE PROTEIN SCREENING 11/15/2024 06/18/2023, 03/28/2021, 04/22/2018, Additional history exists DIABETES-HGB A1C 12/10/2024 06/09/2024, 02/2023, 03/28/2021, Additional history exists DIABETES-FOOT EXAM WITH MONOFILAMENT 06/09/2025 06/09/2024 INFLUENZA VACCINE (#1) 2025 ZOSTER VACCINE (1 of 2) 2040 HIB VACCINE Aged Out No longer eligi ble based on patient's age to complete this topic HPV VACCINE Aged Out No longer eligi ble based on patient's age to complete this topic MENINGOCOCCAL (Group B) VACCINE SHARED DECISION-MAKING Aged Out No longer eligible based on patient's age to complete this topic MENINGOCOCCAL GROUPS A/C/Y/W VACCINE Aged Out No longer eligible based on patient's age to complete this topic Goals Goal Patient Goal Type Associated Problems Recent Progress Patient-Stated? Author Have labs drawn Lifestyle No Rehana Shipman Procedures Procedure Name Priority Date/Time Associated Diagnosis Comments HEMOGLOBIN A1C - POINT OF CARE (AMB) Routine 06/09/2024 Type 1 diabetes mellitus without complication MICROALB/CREAT RATIO URINE RANDOM PANEL Routine 06/18/2023 9:55 AM CDT Type 1 diabetes mellitus without complication BASIC METABOLIC PANEL (CALCIUM TOTAL) Routine 06/18/2023 9:44 AM CDT Type 1 diabetes mellitus without complication from Last 3 Months or Most Recently Relevant to Health Maintenance Results * HEMOGLOBIN A1C - POINT OF CARE (AMB) (06/09/2024) Pathologist [facility] Hemoglobin A1c POCT 6.9 % Expiration Date 07/06 Lot # [id number] QC Verified Yes Yes Blood BLOOD SPECIMEN / Unknown 06/09/2024 Blade Saab MD LAB - POINT OF CARE ORDERABL ES Final Result * (ABNORMAL) MICROALB/CREAT RATIO URINE RANDOM PANEL (06/18/2023 9:55 AM CDT) Creatinine Urine 161.0 Not Estab. mg/dL [facility] ACCOUNT BILL Microalbumin Urine 2,659.5 Not Estab. ug/mL [facility] ACCOUNT BILL Comment: Results confirmed on dilution. Microalbumin/Crea tinine Ratio 1,652(H) 0 - 29 mg/g creat [facility] ACCOUNT BILL Comment: Normal: 0 - 29 Moderately increased: 30 - 300 Severely increased: >300 FASTING Urine URINE SPECIMEN OBTAINED BY CLEAN CATCH PROCEDURE / Unknown 06/18/2023 9:55 AM CDT 06/18/2023 Narrative Resulting Agency Comment Lab Testing performed at: [facility] [address] [facility] [id number] [place] Blade Saab MD LAB - URINE CHEMISTRY ORDERA BLES Final Result Performing Organization Address [facility] Co de Phone Number [facility] ACCOUNT BILL [address] [place] [address] * (ABNORMAL) BASIC METABOLIC PANEL (CALCIUM TOTAL) (06/18/2023 9:44 AM CDT) Glucose 128(H) 70 - 105 mg/dL [facility] ACCOUNT BILL BUN 15 5.3 - 18.7 mg/dL [facility] ACCOUNT BILL Creatinine 1.35(H) 0.72 - 1.25 mg/dL [facility] ACCOUNT BILL eGFR by CKD-EPI 72(L) >=90 mL/min/1.7 3 m2 [facility] ACCOUNT BILL Sodium 141 136 - 145 mmol/L [facility] ACCOUNT BILL Potassium 5.1 3.5 - 5.1 mmol/L [facility] ACCOUNT BILL Chloride 110(H) 98 - 107 mmol/L [facility] ACCOUNT BILL CO2 24 22 - 29 mmol/L [facility] ACCOUNT BILL Calcium 8.5 8.4 - 10.4 mg/dL [facility] ACCOUNT BILL Comment:FASTING Blood BLOOD SPECIMEN / Unknown 06/18/2023 9:44 AM CDT 06/18/2023 Narrative Resulting Agency Comment Lab Testing performed at: [facility] [address] [facility] [id number] [place] Blade Saab MD LAB - CHEMISTRY ORDERABLES F inal Result Performing Organization Address City/[facility] Co de Phone Number [facility] ACCOUNT BILL [address] [place] [address] from Last 3 Months or Most Recently Relevant to Health Maintenance Insurance [employer] [id number] [address] [id number] Care Teams Commodities Requirements Analyst Relationship Specialty Start Date End Date Jae Martínez MD PCP - General Internal Medicine 10/31/15
--- OUTSIDE RECORDS SUMMARY | 2025-05-16 20:06 | XMS_ITS | Encounter Summary ---
Author Organization [employer] Address 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
--- OUTSIDE RECORDS SUMMARY | 2025-05-16 20:06 | XMS_ITS | Encounter Summary ---
Author Organization [employer] Address 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
--- NOTE | 2025-05-16 20:10 | ED.NAVMDI ---
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 his sugars were noted to be normal. He was treated with IV fluids. -- He continued to have ongoing --nausea and vomiting. diffuse abdominal pain. No diarrhea. -- generalized body ache -- chest discomfort which is worse on deep breathing. No fever or chills. No shortness of breath. MD elicited complaint: nausea, vomiting and abdominal pain Pertinent past history: anorexia Onset (ago): day(s) ( Four days) Description of vomiting: watery Associated nausea: Yes Associated abdominal pain: Yes Location of pain: diffuse Pain consistency: constant Severity: moderate Quality: aching Exacerbating factors: none Relieving factors: none Associated symptoms: denies other symptoms, myalgias, chest pain, fever/chills and fatigue Related Data Home Medications ?Medication ?Instructions ?Recorded ?Confirmed ?Last Taken ?Type blood-glucose sensor (Dexcom G6 05/20/24 05/16/25 Unknown History Sensor device) insulin aspart U-100 100 unit/mL 90 unit subcut DAILY 05/20/24 05/16/25 Unknown History subcutaneous solution (Novolog U-100 Insulin aspart) insulin pump cart,automated,BT 05/20/24 05/16/25 Unknown History (Omnipod 5 G6 Pods (Gen 5) subcutaneous cartridge) lisinopril 10 mg tablet 10 mg PO DAILY 05/20/24 05/16/25 Unknown History insulin pump cart,auto,BT,G6/7 #5 ea 05/16/25 05/16/25 Unknown History (Omnipod 5 G6-G7 Pods (Gen 5) subcutaneous cartridge) sildenafil (pulm.hypertension) 20 20 mg PO DAILY PRN 05/16/25 05/16/25 Unknown History mg tablet Allergies Allergy/AdvReac Type Severity Reaction Status Date / Time No Known Allergies Allergy Verified 05/16/25 11:05 Review of Systems Review of Systems: All systems reviewed & are unremarkable except as noted in HPI and below Constitutional: Constitutional: Reports as per HPI and Reports no additional constitutional complaints Eyes: Eyes: Reports as per HPI and Reports no additional eye complaints Comments: right eye blind ENT: Reports system reviewed and no additional complaints, except as documented and Reports as per HPI Cardiovascular: Cardiovascular: Reports as per HPI, Reports no additional cardiovascular complaints and Reports chest pain Respiratory: Respiratory: Reports as per HPI and Reports no additional respiratory complaints Gastrointestinal: Gastrointestinal: Reports as per HPI, Reports no additional gastrointestinal complaints, Reports nausea and Reports vomiting Genitourinary: Comments: erectile dysfunction Musculoskeletal: Musculoskeletal: Reports no additional musculoskeletal complaints and Reports as per HPI Integumentary/Breasts: Skin/Breast: Reports system reviewed and no additional complaints, except as docu and Reports as per HPI Neurologic: Reports system reviewed and no additional complaints, except as documented and Reports as per HPI Psychiatric: Psychiatric: Reports no additional psychiatric complaints and Reports as per HPI Endocrine: Endocrine: Reports no additional endocrine complaints and Reports as per HPI Hematologic/Lymphatic: Hematologic/Lymphatic: Reports no additional hematologic/lymphatic complaints and Reports as per HPI [facility] Past Medical History Medical History Elevated blood pressure reading Diabetes mellitus type I, controlled Nausea & vomiting Family History Family History Grandparent Diabetes mellitus Type II Sibling Diabetes mellitus Type I Son Diabetes mellitus Type I DM Social History Social History Smoking status: Never smoker Alcohol intake: current Substance use: never Exam Narrative: blood pressure is 160/96. Pulse rate of 106. Afebrile. 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 Neck: Neck: normal visual inspection and no lymphadenopathy Chest: Chest palpation & inspection: normal inspection of the chest Resp: Effort & Inspection: normal respiratory effort Auscultation: clear to auscultation bilaterally Cardio: Rate: regular rate Rhythm: regular rhythm GI: GI Palp: Yes Soft to palpation Auscultation: normal bowel sounds Other: Diffuse tenderness without any rigidity /rebound. : General: Yes no CVA tenderness Back/Spine/Pelvis: Back: no CVA tenderness Skin: General skin exam: normal color Rashes: no rashes Wounds: no wounds Neuro: General: patient oriented x3, moves all extremities, no meningeal signs, no focal motor deficits and CN's II-XI intact bilaterally Cranial nerves: Yes Nystagmus not present Speech: normal speech Extrem: General: normal to inspection and no clubbing, cyanosis or edema Psych: Mental Status: mental status grossly normal Affect: normal affect Attitude: cooperative Course Course Emergency Course: nausea and vomiting possibly secondary to diabetic gastroparesis dehydration chest pain- chest x-ray was noted to be negative. EKG did not show any acute findings. Normal troponin. Vital Signs Vital signs: Vital Signs Temperature 36.9 C 05/16/25 20:04 Pulse Rate 99 05/16/25 20:04 Respiratory Rate 18 05/16/25 20:04 Blood Pressure 164/96 H 05/16/25 20:04 Pulse Oximetry 97 05/16/25 20:04 Oxygen Delivery Room Air 05/16/25 20:04 Temperature 36.9 C 05/16/25 20:04 Pulse Rate 81 05/16/25 21:01 Respiratory Rate 18 05/16/25 21:01 Blood Pressure 156/89 H 05/16/25 21:01 Pulse Oximetry 97 05/16/25 21:01 Oxygen Delivery Room Air 05/16/25 20:16 MDM - Nausea/Vomiting/Diarrhea MDM Narrative Medical decision making narrative: diabetic gastroparesis CKD chest pain Differential Diagnosis Differential diagnosis: Likely food poisoning and gastroenteritis Medical Records Attestation: I reviewed the patient's medical records. Lab Data Attestation: I reviewed the patient's lab results. 05/16/25 20:37 05/16/25 20:37 Labs: Lab Results 05/16/25 05/16/25 05/16/25 Range/Units 20:12 20:37 21:23 WBC 12.0 H (4.8-10.8) K/mm3 RBC 4.38 L (4.70-6.10) M/mm3 Hgb 12.9 L (14.0-18.0) g/dL Hct 36.9 L (40.0-54.0) % MCV 84.2 (78.0-102.0) fL MCH 29.5 (27.0-31.0) pg MCHC 35.0 (32-36) g/dL RDW 12.5 (11.6-14.4) % Plt Count 368 (150-420) K/mm3 MPV 10.7 (8.7-11.0) fl Immature Gran % (Auto) 0.3 H (0.0-0.0) % Neut % (Auto) 72.8 H (50.0-70.0) % Lymph % (Auto) 17.9 L (18.0-42.0) % Forest % (Auto) 8.1 (2.0-11.0) % Eos % (Auto) 0.2 L (1.0-6.0) % Baso % (Auto) 0.7 (0.0-1.0) % Lymph # (Auto) 2.15 (1.10-4.50) K/mm3 Forest # (Auto) 0.97 H (0.10-0.90) K/mm3 Eos # (Auto) 0.03 (0.02-0.50) K/mm3 Baso # (Auto) 0.08 (0.00-0.10) K/mm3 Abs Immat Gran (auto) 0.04 H (0.00-0.00) K/mm3 Absolute Neuts (auto) 8.75 H (1.70-7.20) K/mm3 Absolute Nucleated RBC 0.00 (0.00-0.00) K/mm3 Nucleated RBC % 0.0 (0-0.0) % PT 11.4 (9.50-12.1) Seconds INR 1.0 Sodium 134 L (137-145) mmol/L Potassium 3.5 (3.4-5.0) mmol/L Chloride 103 (98-107) mmol/L Carbon Dioxide 25 (22-30) mmol/L Anion Gap 6 (4-12) mmol/L BUN 23 H (9-20) mg/dL Creatinine 1.61 H (0.7-1.3) mg/dL Estim Creat Clear Calc 77 ml/min Estimated GFR 49 L (59 - ) Glucose 172 H (65-110) mg/dL POC Capillary Glucose 111 H (65-105) mg/dl Calculated Osmolality 285 (285-295) mOsm/kg Lactic Acid 1.3 (0.4-2.0) mmol/L Calcium 8.2 L (8.4-10.2) mg/dL Magnesium 1.9 (1.6-2.3) mg/dL Total Bilirubin 0.5 (0.2-1.3) mg/dL AST 21 (17-59) U/L ALT 18 (6-50) U/L Alkaline Phosphatase 92 (38-126) U/L Total Creatine Kinase 160 (55-170) U/L Troponin I < 0.012 (0.000-0.034) ng/mL Total Protein 6.5 (6.3-8.2) g/dL Albumin 3.7 (3.5-5.1) g/dL Lipase 13 L (23-300) U/L Urine Color Yellow (Yellow) Urine Appearance Clear (Clear) Urine pH 6.0 (5.0-8.0) Ur Specific [place] 1.025 H (1.010-1.020) Urine Protein 3+ H (Negative) Urine Glucose (UA) Negative (Negative) Urine Ketones Negative (Negative) Ur Blood (Man) 2+ H (Negative) Urine Nitrate Negative (Negative) Urine Bilirubin Negative (Negative) Urine Urobilinogen 0.2 (0.2-1.0) mg/dL Leukocyte Esterase Rfl Negative (Negative) JENNI/UL Urine RBC 0-2 (0-2) /hpf Urine WBC 0-3 (0-3) /hpf Urine Bacteria Trace (None) /hpf ECG Data EKG #1: ECG completion date: 05/16/25 ECG completion time: 21:00 Interpretation: normal sinus rhythm. Normal axis. No ST elevation. Discharge Plan Discharge Clinical Impression: CKD (chronic kidney disease) stage 2, GFR 60-89 ml/min Nausea & vomiting Qualifiers: Vomiting type: unspecified Qualified Code(s): R11.2 - Nausea with vomiting, unspecified Patient Disposition: Home Condition: Stable Instructions: Antibiotic Form, Chest Pain (ED), Diabetic Gastroparesis (DC), Chronic Kidney Disease (ED) Patient Language: Maldivian Prescriptions: No Action insulin aspart U-100 [Novolog U-100 Insulin aspart] 100 unit/mL solution 90 unit subcut DAILY Rx Instructions: Per insulin pump lisinopril 10 mg tablet 10 mg PO DAILY (DME) Dexcom G6 Sensor Device MISCELLANEOUS (DME) Omnipod 5 G6 Pods (Gen 5) Cartridge SUBCUT metoclopramide HCl 10 mg tablet 10 mg PO .TIDw PRN (Reason: nausea and vomiting) Qty: 90 0RF (DME) Omnipod 5 G6-G7 Pods (Gen 5) Cartridge See Rx Instructions .ROUTE .MEDSUPPLY Qty: 5 Rx Instructions: As directed ondansetron 4 mg tablet,disintegrating 4 mg PO Q6H PRN (Reason: nausea and vomiting) Qty: 14 0RF sildenafil (pulm.hypertension) 20 mg tablet 20 mg PO DAILY PRN Rx Instructions: unsure of dosage, listed in specialist note, please clarify Follow-up/Referrals: Bill Redd APRN [Primary Care Provider] - Time of Disposition: 21:40
[2025-05-16] MEDS: LACTATED RINGERS 1,000 ML 999 ML IV CONT (20:39)
[2025-05-16 20:41] LABS: Hematocrit 36.9 % (40.0-54.0); Hemoglobin 12.9 g/dL (14.0-18.0); Immature Granulocyte Percent A 0.3 % (0.0-0.0); Lymphocytes Absolute Auto 2.15 K/mm3 (1.10-4.50); Mean Corpuscular HGB Conc 35.0 g/dL (32-36); Mean Corpuscular Hemoglobin 29.5 pg (27.0-31.0); Mean Corpuscular Volume 84.2 fL (78.0-102.0); Nucleated Red Blood Cells Absolute Auto 0.00 K/mm3 (0.00-0.00); Nucleated Red Blood Cells Perc 0.0 % (0-0.0); Platelet Count Result 368 K/mm3 (150-420); Red Blood Count 4.38 M/mm3 (4.70-6.10); White Blood Count 12.0 K/mm3 (4.8-10.8)
--- OUTSIDE RECORDS SUMMARY | 2025-05-16 20:49 | XMS_ITS | Clinical Summary ---
Author Organization [facility] Address [address] [place] [id number] Phone Care Team Providers Care Ui Developer Designer Name Role Phone Jae Martínez MD Primary Care Provider [phone] Social History Tobacco Use Types Packs/Day Years [...] age to complete this topic Care Teams Ui Developer Designer Relationship Specialty Start Date End Date Jae Martínez MD [address] [facility] [address] [place] [address] PCP - General Internal Medicine 02/03/23
--- OUTSIDE RECORDS SUMMARY | 2025-05-16 20:49 | XMS_ITS | Encounter Summary ---
Author Organization [facility] Address [address] [place] [address] Care Team Providers Care Body Fitter Name Role Phone Jae Martínez MD Primary Care Provider [phone] Encounter Details Date Type Department Care Team (Late st Contact Info) Description 02/25/2009 Outpatient Historical [facility] Jae Martínez MD [address] [facility] [address] [place] [address] Routine General Medical Examination at a Health Care Facility Social History Tobacco Use Types Packs/Day Years Used Date Smoking Tobacco: Never Alcohol Use Standard Drinks/Week Comments No 0 (1 standard drink = 0.6 oz pur e alcohol) Sex and Gender Information Value Date Recorded Sex Assigned at Not on file Legal Sex Male 3:06 AM KAITARA TARAKA Gender Identity Not on file Sexual Orientation Not on file documented as of this encounter Plan of Treatment Not on file documented as of this encounter Visit Diagnoses Diagnosis Routine general medical examination at a health care facility documented in this encounter Care Teams Body Fitter Relationship Specialty Start Date End Date Jae Martínez MD PCP - General 02/22/09 documented as of this encounter
--- OUTSIDE RECORDS SUMMARY | 2025-05-16 20:49 | XMS_ITS | Encounter Summary ---
Author Organization [facility] Address [address] [place] [address] Phone Care Team Providers Care Forest Practices Field Coordinator Name Role Phone Jae Martínez MD Primary Care Provider [phone] Encounter Details Date Type Department Care Team (Late st Contact Info) Description 02/03/2023 Lab Requisition [facility] [address] [place] [address] Alondra Hoyt, FIRST LINE PRODUCTION SUPERVISOR, DIRECTOR OF WORKFORCE DEVELOPMENT [address] [place] [address] Encounter for pre-employment examination Social History Tobacco [...] 0.03 <8.01 IU/mL 02/08/2023 1:[address] [facility] TB ANTIGEN 1 0.04 <0.35 IU/mL 02/08/2023 1:[address] [facility] TB ANTIGEN 2 0.04 <0.35 IU/mL 02/08/2023 1:[address] [facility] MITOGEN CONTROL >10.00 >0.49 IU/mL 02/09/20 1:[address] [facility] INTEPRETATION TB NEGATIVE NEGATIVE, NEGATIVE (TB antigen response less than 25% of internal negative control value) 02/08/2023 1:[address] [facility] Comment:No immune response t o Mycobacterium tuberculosis antigens was noted. M. tuberculosis infection unlikely. Blood No Phlebotomy Charged / Unknown 02/03/2023 10:30 AM CDT 02/03/2023 12:[address] [facility] - 02/08/2023 1:04 PM CDT A [...] APRN, CNP IMMUNOLOGY ORDERABLES F inal Result [facility] [address] [place] [address], documented in this encounter Visit Diagnoses Diagnosis Encounter for pre-employment examination Health examination of defined subpopulation documented in this encounter Care Teams Forest Practices Field Coordinator Relationship Specialty Start Date End Date Jae Martínez MD [address] [address] PCP - General Internal Medicine 02/03/23 documented as of this encounter
--- NOTE | 2025-05-16 20:50 | ECG_ITS ---
Test Date: 2025-05-16 20:59:54 Measurements Intervals [place] Rate: 82 P: 22 OR: 139 QRS: -9 QRSD: 93 T: 66 QT: 360 QTc: 421 Interpretive Statements SINUS RHYTHM WITH OCCASIONAL VENTRICULAR PREMATURE COMPLEXES POSSIBLE RIGHT VENTRICULAR CONDUCTION DELAY [RSR (QR) IN V1/V2] MINIMAL VOLTAGE CRITERIA FOR LVH, CONSIDER NORMAL VARIANT [MEETS CRITERIA IN ONE OF: R(aVL), S(V1), R(V5), R(V5/V6)+S(V1)] NONSPECIFIC ST & T-WAVE ABNORMALITY Compared to ECG 05/20/2024 07:51:39 Ventricular premature complex(es) now present T-wave abnormality now present Electronically Signed On 05-21-2025 22:36:52 CDT by Justa Palaico M.D.
--- OUTSIDE RECORDS SUMMARY | 2025-05-16 20:50 | XMS_ITS | Encounter Summary ---
Author Organization [employer] Address 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
--- OUTSIDE RECORDS SUMMARY | 2025-05-16 20:50 | XMS_ITS | Continuity of Care Document ---
Author Organization [facility] Address [address] [place] [address] [address] [place] [address] Phone Care Team Providers Care Assistant Golf Course Superintendent Name Role Phone Jann Jerome MD Unavailable Unavailable Allergies, Adverse Reactions, Alerts Substance Reaction Status Criticality No Known Allergies Active No Inform ation Medications Medication Instructions Dosage Effective Dates (start - stop) Status Comments Humalog 100 unit/mL subcutaneous cartridge inject by subcutaneous route per prescriber's instructions. Insulin dosing requires individualization. 0.00 - Active Tresiba FlexTouch U-100 100 unit/mL (3 mL) subcutaneous insulin pen inject by subcutaneous route as per insulin protocol 0.00 - Active Procedures Procedure Date OFFICE/OUTPATIENT VISIT, EST ADMINISTRATION FEE POSTOP FOLLOW-UP VISIT AFTER CATARACT LASER SURGERY OFFICE/OUTPATIENT VISIT, EST ADMINISTRATION FEE POSTOP FOLLOW-UP VISIT CATARACT SURG W/IOL, 1 STAGE OFFICE/OUTPATIENT VISIT, NEW OPHTHALMIC BIOMETRY OPHTHALMIC BIOMETRY Advance Directives Directive Yes / No Effective Date File Name No Information Encounters Encounter Description Practice Location Reason(s) For Visit Diagnoses Date Provider Providers Copied on Encounter [facility], [id number] [place] [address] [address], [place], [place], [id number], [place] tel:[phone] [facility] Other specified glaucomaAge-re lated nuclear cataract, right eyeType 1 diab w prolif diab rtnop w trctn dtch macula, r eyePresence of intraocular lensPresbyopia 9 Lisandro Forte. [address] [place] [address], [id number], [place]. tel:[phone] [facility], [address] [place] [address], [id number], [place] tel:[phone] [facility] Other specified glaucomaAge-re lated nuclear cataract, right eyeType 1 diab w prolif diab rtnop w trctn dtc macula, r eyePresence of intraocular lens 9 Lisandro Forte. [address] [place] [address], [id number], [place]. tel:[phone] [facility], [address] [place] [address], [id number], [place] tel:[phone] [facility] Encounter for other specified surgical aftercare 0 8 Lisandro Forte. [address] [place] [address], [id number], [place]. tel:[phone] [facility], [address] [place] [address], [id number], [place] tel:[phone] [facility] Encounter for other specified surgical aftercare 8 Lisandro Forte. [address] [place] [address], [id number], [place]. tel:[phone] [facility], [address] [place] [address], [id number], [place] tel:[phone] [facility] Encounter for other specified surgical aftercare 8 Lisandro Forte. [address] [place] [address], [id number], [place]. tel:[phone] [facility], [address] [place] [address], [id number], [place] tel:[phone] [facility] Encounter for other specified surgical aftercare 8 Lisandro Forte. [address] [place] [address], [id number], [place]. tel:[phone] [facility], [address] [place] [address], [id number], tel:[phone] [facility] Other specified glaucomaPresen ce of intraocular lensLong term (current) use of insulinHyphema , right eyeAge-related nuclear cataract, right eyePrimary open-angle glaucoma, right eye, severe stageVitreous hemorrhage, right eyeType 1 diab w prolif diab rtnop w trctn dtch macula, r eyeType 1 diab with prolif diab rtnop without macular edema, bi 8 [facility]. [address] [facility], [place], [place], [id number], [place]. tel:[phone] OFFICE/OUTPA TIENT VISIT, EST [facility], [address] [place] [address], [id number], tel:[phone] [facility] blurry vision (chief complaint) Squamous blepharitis right upper eyelidSquamous blepharitis right lower eyelidSquamous blepharitis left upper eyelidSquamous blepharitis left lower eyelidAcute bilateral papillary conjunctivitis Tear film insufficiency of bilateral lacrimal glandsPresence of intraocular lensType 1 diabetes mellitus with proliferative retinopathy of right eye and macular edemaType 1 diabetes mellitus with mild nonproliferati ve retinopathy of left eye without macular edemaVitreous hemorrhage of right eye 7 Vick Watt. [address], [place], [place], [id number], [place]. tel:[phone] Referring Provider: Shukri Tate, [address], [place], [address] . tel:[phone] [facility], [address] [place] [address], [id number], tel:[phone] [facility] vision is improved OS (chief complaint) No Information 6 Vick Watt. [address], [place], [place], [id number], [place]. tel:[phone] Referring Provider: Shukri Tate, [address], [place], [address] . tel:[phone] [facility], [address] [place] [address], [id number], tel:[phone] [facility] No Information 6 Vick Watt. [address], [place], [place], [id number], [place]. tel:[phone] Referring Provider: Shukri Tate, [address], [place], [address] . tel:[phone] OFFICE/OUTPA TIENT VISIT, [facility], [address] [place] [address], [id number], tel:[phone] [facility] blurry vision (chief complaint) Diabetic eye check (chief complaint) Type 1 diab w mild nonprlf diabetic rtnop w/o macular edemaTear film insufficiency of bilateral lacrimal glandsPuckerin g of macula, right eyePresence of intraocular lensPosterior subcapsular polar age-related cataract, right eyeOther secondary cataract of lt eyeAcute bilateral papillary conjunctivitis Myopia, bilateral 6 Vick Watt. [address], [address], [place], [place], [id number], [place]. tel:[phone] Referring Provider: Shukri Tate, [address], [place], [address] . tel:[phone] [facility], [address] [place] [address], [id number], [place] tel:[phone] Oph Consult [facility] vision is improved OS (chief complaint) No Information 4 Shaji Harper. [address], [place], [place], [id number], [place]. tel:[phone] Referring Provider: Leroy varghese, [address], [place], [address] . tel:[phone] [facility], [address] [address], [place], [place], [id number], tel:[phone] [facility] No Information Jan- 4 Vick Watt. [address], [place], [place], [id number], [place]. tel:[phone] Referring Provider: Shukri Tate, [address], [place], [address] . tel:[phone] OFFICE/OUTPA TIENT VISIT, [facility], [address] [address], [place], [place], [id number], tel:[phone] Oph Consult [facility] Office Diabetes Mellitus, Juvenile, ControlledTear film insufficiency, unspecifiedAll ergic conjunctivitis Posterior subcapsular polar senile cataract Jan- 4 Vick Watt. [address], [place], [place], [id number], [place]. tel:[phone] Referring Provider: Shukri Tate, [address], [place], [address] . tel:[phone] Family History Family Member Type Diagnosis Age At Onset Problem (finding) Payers Payer name Insurance type Covered constitution party ID Authoriza tion(s) No Information Social History Type Description Quantity Date Captured Comments Sex Male Smoking Status No Information Chief Complaint And Reason For Visit No Information Reason For Referral Reason For Referral No Information Plan Of Treatment Date Type Action Status Referral Ordered: Referrals: Ophthalmology. Evaluate and treat ordered History Of Present Illness Encounter Date Complaint History Of Prese nt Illness blurry vision The 26 year old male presents for evaluation of blurry vision in the right eye that was noticed when woke up 4 days ago. Patient states cannot see at distance or near. Patient reports blurry vision was not gradual, it was sudden & upon awakening - no worse since Wednesday. Patient is pseudophakic OS s/p YAG PC OS & states feels like same thing is happening with OD as did with OS when needed laser done. DM1 patient (will be getting insulin pump soon). BS 145 unsure A1c. Mac OCT ordered todayPatient reports floaters & lines in vision OD. Amsler - OD upper left corner blurry OS normal vision is improved vision is imp roved OS blurry vision The 25 year old male presents for evaluation of blurry vision in the left eye. Patient states last few months vision has been getting progessively worse. Pt is pseudophakic OS only 2013 std/dist with SK. No ocular discomfort. Orig. ref for cat sx Dr. Lo [facility] Diabetic eye check The patient i s present for Diabetic eye check. IDDM BS 118 today A1c 6? no retinopathy OU vision is improved vision is imp roved OS Functional Status Date Functional Assessmen t No Information Instructions Date Instruction Additional Infor jakob Impression/Plan - Di scussed diagnosis in detail with patient. Ref to retina for eval and treatment. Related to Vitreous hemorrhage of right eye Impression/Plan - Di scussed diagnosis in detail with patient. Discussed treatment options with patient. Lid scrubs and hygiene were explained. Patient instructed to apply warm compresses. Will continue to observe condition and or symptoms. Related to Squamous blepharitis right upper eyelid Impression/Plan - mi ld background diabetic retinopathy, no signs of neovascularization noted. No treatment necessary at this time. Patient was instructed to monitor vision for sudden changes and to call if visual changes noted. Discussed ocular and systemic benefits of blood sugar control.Ref to Retina discussed with patient if he does not he can go blind Related to Type 1 diabetes mellitus with mild nonproliferative retinopathy of left eye without macular edema Impression/Plan - Di scussed diagnosis in detail with patient. Discussed treatment options with patient. Lid scrubs and hygiene were explained. Patient instructed to apply warm compresses. Will continue to observe condition and or symptoms. Related to Squamous blepharitis right lower eyelid Impression/Plan - Di scussed diagnosis in detail with patient. Discussed treatment options with patient. Lid scrubs and hygiene were explained. Patient instructed to apply warm compresses. Will continue to observe condition and or symptoms. Related to Squamous blepharitis left upper eyelid Impression/Plan - Di scussed diagnosis in detail with patient. Discussed treatment options with patient. Lid scrubs and hygiene were explained. Patient instructed to apply warm compresses. Will continue to observe condition and or symptoms. Related to Squamous blepharitis left lower eyelid Impression/Plan - Di scussed diagnosis in detail with patient. No treatment is required at this time. Will continue to observe condition and or symptoms. Related to Acute bilateral papillary conjunctivitis Impression/Plan - Re assured patient of current condition and treatment. Patient instructed to use artificial tears as needed. Will continue to observe condition and or symptoms. Related to Tear film insufficiency of bilateral lacrimal glands Impression/Plan - St able Will continue to observes/p Yag OS Related to Presence of intraocular lens Impression/Plan - mi ld background diabetic retinopathy, no signs of neovascularization noted. No treatment necessary at this time. Patient was instructed to monitor vision for sudden changes and to call if visual changes noted. Discussed ocular and systemic benefits of blood sugar control.REF to retina Discussed with patient if he doesnt see retina then he has risk of going blind. 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 The patient will monitor vision changes and contact us with any decrease in vision. Stable. Will continue to observe. Related to Posterior subcapsular polar age-related cataract, right eye Impression/Plan - Di scussed diagnosis in detail with patient. Discussed treatment options with patient. Schedule Yag today. Related to Other secondary cataract of lt eye Impression/Plan - Di scussed diagnosis in detail with patient. No treatment is required at this time. Will continue to observe condition and or symptoms. Related to Acute bilateral papillary conjunctivitis Impression/Plan - Ne w glasses rx was not given today. Related to Myopia, bilateral Follow up - RTO 1 year for comp exam Impression/Plan - mi ld background diabetic retinopathy, no signs of neovascularization noted. No treatment necessary at this time. Patient was instructed to monitor vision for sudden changes and to call if visual changes noted. Discussed ocular and systemic benefits of blood sugar control.Ref to retina todayLast A1c- 6? Related to Type 1 diab w mild nonprlf diabetic rtnop w/o macular edema Impression/Plan - Di scussed diagnosis in detail with patient. Discussed treatment options with patient. Patient instructed to use artificial tears as needed. Will continue to observe condition and or symptoms. Related to Tear film insufficiency of bilateral lacrimal glands Impression/Plan - Di scussed diagnosis in detail with patient. No treatment is required at this time. Will continue to observe condition and or symptoms. Related to Puckering of macula, right eye Impression/Plan - St able. Will continue to observe. Related to Presence of intraocular lens - Standard lensRef Dr Lo C EC Related to Cataract 1week, 1st eye STD iol, dst. - Standard lensRef Cedrick Lo [facility]-F/U at [facility] in 3 months Related to Cataract 1week, 1st eye STD iol, dst. Diabetes Mellitus, J uvenile, Controlled - Diabetes type I: no background retinopathy, no signs of neovascularization noted. Discussed ocular and systemic benefits of blood sugar control. Related to Diabetes Mellitus, Juvenile, Controlled Tear film insufficie ncy, unspecified OU - Dry eyes account for the patient's complaints. There is no evidence of permanent changes to the cornea. Explained condition does not have a cure and will need artificial tears for maintenance. Educational materials provided:Dry eye syndrome. Related to Tear film insufficiency, unspecified Allergic conjunctivi tis OU - Discussed diagnosis in detail with patient. Discussed treatment options with patient. Will continue to observe condition and or symptoms. Related to Allergic conjunctivitis Posterior subcapsula r polar senile cataract OS - Cataracts account for the patient's complaints. Discussed all risks, benefits, procedures and recovery. Patient understands changing glasses will not improve vision. Patient desires to have surgery, recommend phacoemulsification with intraocular lens. Educational materials provided:Cataract extraction/lens. Standard lens OS due to blurred vision while night driving and reading Related to Posterior subcapsular polar senile cataract Assessments Type Assessment Date No Information Patient Care Teams Name Effective Dates (start - stop) Status Members No Information
--- OUTSIDE RECORDS SUMMARY | 2025-05-16 20:50 | XMS_ITS | Encounter Summary ---
Author Organization [facility] Address 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
--- OUTSIDE RECORDS SUMMARY | 2025-05-16 20:50 | XMS_ITS | Encounter Summary ---
Author Organization [facility] Address [address] [place] [address] Care Team Providers Care Rfid Technician Name Role Phone Jae Martínez MD Primary Care Provider [phone] Reason for Visit * Reason Onset Date Comments MEDICATION REFILL 05/16/2025 Encounter Details Date Type Department Care Team (Late st Contact Info) Description 05/16/2025 Refill [facility] - Endocrinology [address] [place] [address] Blade Saab MD [address] [place] [address] [address] [place] [address] MEDICATION REFILL Social History Tobacco Use Types Packs/Day Years Used Date Smoking Tobacco: Never Smokeless Tobacco: Never Alcohol Use Standard Drinks/Week Comments Not Asked 0 (1 standard drink = 0.6 oz pur e alcohol) PHQ-2 Answer Date Recorded PHQ2 TOTAL SCORE 0 03/28/2021 Sex and Gender Information Value Date Recorded Sex Assigned at Not on file 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 Gender Identity Not on file Sexual Orientation [...] Department Center 08/28/2025 9:45 AM Blade Saab [facility] - Endocrinology documented in this encounter Plan of Treatment Upcoming Encounters Date Type Department Care Team (Late st Contact Info) Description 08/28/2025 9:45 AM CDT Office Visit [facility] - Endocrinology [address] [place] [address] Blade Saab MD [address] [place] [address] documented as of this encounter Goals Goal Patient Goal Type Associated Problems Recent Progress Patient-Stated? Author Have labs drawn Lifestyle No Rehana Shipman documented as of this encounter Visit Diagnoses Not on filedocumented in this encounter Care Teams Rfid Technician Relationship Specialty Start Date End Date Jae Martínez MD PCP - General Internal Medicine 10/31/15 documented as of this encounter
--- OUTSIDE RECORDS SUMMARY | 2025-05-16 20:50 | XMS_ITS | Encounter Summary ---
Author Organization [facility] Address [address] [place] [address] Care Team Providers Care Disease Case Manager Rn Name Role Phone Jae Martínez MD Primary Care Provider [phone] Encounter Details Date Type Department Care Team (Late st Contact Info) Description 04/29/2009 Outpatient Historical [facility], Authorized P NO ADDRESS ON FILE Ivan Hua MD [address] 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 04/29/2009 5:35 PM CDT 04/29/2009 5:35 PM CDT us Authorized P Er POINT OF CARE TESTING Final Resu lt Performing Organization Address [facility] de Phone Number INTERFACE SYSTEM Refer to clinic/hospital department [facility] CLIA# [id number] [address] [place] [address] * (ABNORMAL) POC GLUCOSE (04/29/2009 4:42 PM CDT) GLUCOSE POC 500(AA) 65 - 99 mg/dL [facility] 04/29/2009 4:42 PM CDT 04/29/2009 4:42 PM CDT us Authorized P Er POINT OF CARE TESTING Final Resu lt Performing Organization Address [facility] de Phone Number INTERFACE SYSTEM Refer to clinic/hospital department [facility] CLIA# [id number] [address] [place] [place] [address] * (ABNORMAL) COMPREHENSIVE METABOLIC PANEL (04/29/2009 3:49 PM CDT) TOTAL PROTEIN 7.6 6.3 - 8.6 g/dL [facility] POTASSIUM 3.4(L) 3.5 - 4.9 mmol/L [facility] GLUCOSE 538(AA) 65 - 99 mg/dL [facility] Comment:Results called to Luba rodriguez at 04/29/09 16:24 and read back verified. AST 21 12 - 38 U/L [facility] BUN 8 6 - 20 mg/dL [facility] CALCIUM 9.4 8.6 - 10.2 mg/dL [facility] CHLORIDE 92(L) 96 - 108 mmol/L [facility] ALBUMIN 4.7(H) 3.2 - 4.5 g/dL [facility] CREATININE 0.54(L) 0.67 - 1.17 mg/dL [facility] SODIUM 130(L) 135 - 145 mmol/L [facility] ALT 30 0 - 41 U/L [facility] CO2 24 22 - 30 mmol/L [facility] ALKALINE PHOSPHATASE 117 40 - 129 U/L [facility] BILIRUBIN TOTAL 0.7 0.2 - 1.0 mg/dL [facility] GFR, >60 >=60 mL/min/1. [address] [facility] GFR >60 >=60 mL/min/1. [address] [facility] Comment: Modification of Diet in Renal Disease (MDRD) study formula. Estimated GFR rate interpretative information for both Americans and non- Americans is available on the [facility] Intranet at: [email or web address] Select: Lab Policies and Procedures Select: Reference Ranges - GFR 04/29/2009 3:49 PM CDT 04/29/2009 3:51 PM CDT us Akbar Piña MD CHEMISTRY ORDERABLES Edited INTERFACE SYSTEM Refer to clinic/hospital department [facility] CLIA# [id number] [address] [place] [address] * (ABNORMAL) CBC WITH DIFFERENTIAL (04/29/2009 3:49 PM CDT) WBC 8.3 4.0 - 9.8 K/uL [facility] MCH 30.2 27.2 - 32.[address] [facility] MPV 12.3 9.3 - 12.[address] [facility] HEMATOCRIT 44.0 40.0 - 48.0 % [facility] RDW-STDEV 35.4(L) 37.1 - 48.[address] [facility] RBC 5.29 4.50 - 5.40 M/uL [facility] MCHC 36.4(H) 31.5 - 35.5 % [facility] MCV 83.2 82.0 - 99.[address] [facility] PLATELETS 324 140 - 350 K/uL [facility] HEMOGLOBIN 16.0 13.6 - 16.5 g/dL [facility] RDW 12.2 11.5 - 14.5 % [facility] MONOCYTES 5 3 - 13 % [facility] MONOCYTE ABSOLUTE 0.39 0.10 - 1.30 K/uL [facility] NEUTROPHILS 58 45 - 70 % [facility] NEUTROPHIL ABSOLUTE 4.79 1.90 - 7.00 K/uL [facility] EOSINOPHILS 8(H) 0 - 7 % [facility] EOSINOPHIL ABSOLUTE 0.67 0.00 - 0.70 K/uL [facility] LYMPHOCYTES 29 16 - 45 % [facility] LYMPHOCYTE ABSOLUTE 2.40 0.70 - 4.50 K/uL [facility] BASOPHILS 1 0 - 2 % [facility] BASOPHILS ABSOLUTE 0.07 0.00 - 0.20 K/uL [facility] 04/29/2009 3:49 PM CDT 04/29/2009 3:51 PM CDT us Akbar Piña MD HEMATOLOGY ORDERABLES Edited INTERFACE SYSTEM Refer to clinic/hospital department [facility] CLIA# [id number] [address] [place] [address] * (ABNORMAL) POC GLUCOSE (04/29/2009 3:20 PM CDT) GLUCOSE POC >500(AA) 65 - 99 mg/dL [facility] 04/29/2009 3:20 PM CDT 04/29/2009 3:20 PM CDT us Authorized P Er POINT OF CARE TESTING Final Resu lt INTERFACE SYSTEM Refer to clinic/hospital department [facility] CLIA# [id number] [address] [place] [address] documented in this encounter Visit Diagnoses Not on filedocumented in this encounter Care Teams Disease Case Manager Rn Relationship Specialty Start Date End Date Jae Martínez MD PCP - General 02/22/09 documented as of this encounter
--- OUTSIDE RECORDS SUMMARY | 2025-05-16 20:50 | XMS_ITS | Encounter Summary ---
Author Organization [facility] Address 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
--- OUTSIDE RECORDS SUMMARY | 2025-05-16 20:50 | XMS_ITS | Encounter Summary ---
Author Organization [employer] [facility] Address 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
--- OUTSIDE RECORDS SUMMARY | 2025-05-16 20:50 | XMS_ITS | Clinical Summary ---
Author Organization [employer] [facility] Address [address] [place] [address] Care Team Providers Care Academic Coordinator Name Role Phone Jae Martínez MD Primary Care Provider [phone] Source Comments [facility],non-owned Affiliates and Associated Physician Practices is amultiple site organization consisting of ambulatory clinics and hospital sitesin [place], [place], [place] and [place]. This disclosure is being madepursuant to the Care Everywhere program and may not contain all information available regarding this patient. Last updated 18.[facility] Allergies No known active allergies Medications * [...] 25 Active Insulin Disposable Pump (Omnipod 5 [id number] Pods Gen 5) MISCIndications: Type 1 diabetes [...] 025 Discontinued Insulin Disposable Pump (Omnipod 5 [id number] Pods Gen 5) MISCIndications: Type 1 diabetes [...] Type Department Care Team Description 05/16/2025 Refill [facility] End[facility] [address] [place] [phone] Blade Saab MD MEDICATION REFILL 04/24/2025 Refill [facility] [address] [place] [phone] Blade Saab MD Refill Request 03/03/2025 Refill [facility] [address] [place] [phone] Blade Saab MD MEDICATION REFILL 02/28/2025 Refill [facility] [address] [place] [phone] Blade Saab MD MEDICATION REFILL from Last [...] on file 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 Gender Identity Not on file Sexual Orientation [...] Description 08/28/2025 9:45 AM CDT Office Visit [facility] - Endocrinology [address] [place] [phone] Blade Saab MD [address] [facility] [address] [place] [address] Health Maintenance Due Date Last [...] - POINT OF CARE (AMB) (06/09/2024) Pathologist [facility] Hemoglobin A1c POCT 6.9 % Expiration Date 07/06 Lot # [id number] QC Verified Yes Yes Blood BLOOD SPECIMEN [...] Resulting Agency Comment Lab [facility] performed at: [facility] [address] [facility] [id number] us Blade Saab MD LAB - URINE CHEMISTRY ORDERA BLES Final Result Performing Organization Address [facility] Co de Phone Number [facility] ACCOUNT BILL [address] [place] [address] * (ABNORMAL) BASIC METABOLIC PANEL (CALCIUM TOTAL) [...] Resulting Agency Comment Lab Testing performed at: [facility] [address] [facility] [id number] us Blade Saab MD LAB - CHEMISTRY ORDERABLES F inal Result Performing Organization Address [facility] Co de Phone Number [facility] ACCOUNT BILL [address] [place] [address] from Last 3 Months or Most Recently Relevant to Health Maintenance Insurance [employer] [id number] [place] [id number] Care Teams Academic Coordinator Relationship Specialty Start Date End Date Jae Martínez MD PCP - General Internal Medicine 10/31/15
--- OUTSIDE RECORDS SUMMARY | 2025-05-16 20:50 | XMS_ITS | Encounter Summary ---
Author Organization [facility] Address [address] [place] [address] Care Team Providers Care Fabric Inspector Name Role Phone Jae Martínez MD Primary Care Provider [phone] Encounter Details Date Type Department Care Team (Late st Contact Info) Description 03/30/2009 Outpatient Historical [facility] Jae Martínez MD [address] [place] [address] DM w/o Complication Type II (CMS/HCC) Social History Tobacco Use Types Packs/Day Years Used Date Smoking Tobacco: Never Alcohol Use Standard Drinks/Week Comments No 0 (1 standard drink = 0.6 oz pur e alcohol) Sex and Gender Information Value Date Recorded Sex Assigned at Not on file 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
--- OUTSIDE RECORDS SUMMARY | 2025-05-16 20:50 | XMS_ITS | Clinical Summary ---
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 Name Role Phone Jae Martínez MD Primary Care Provider Allergies No known active allergies Medications blood [...] - 05/15/2025 2:12 PM CDT Hospital Encounter [facility] Medical Surgical [address] [place] [address] Lauri Gallardo MD Pfeiffer, Paul Rei, DO [...] on file Legal Sex Male 3:06 AM [employer] Gender Identity Not on file Sexual Orientation [...] - 99 mg/dL 05/15/2025 12:24 PM CDT [facility] LABORATORY [facility] SPECIMEN SOURCE, GLUCOSE POC Whole Blood 05/15/2025 12:24 PM CDT [facility] LABORATORY [facility] Blood, whole 05/15/2025 12:2 4 PM CDT 05/15/2025 12:34 PM CDT Cindy Estrada MD POINT OF CARE TESTING Final Resu lt [facility] LABORATORY [facility] CLIA# [id number] [address] [place] [address] * (ABNORMAL) CBC WITHOUT DIFFERENTIAL (05/15/2025 1:09 AM CDT) [facility] WBC 14.2(H) 4.0 - 9.8 K/uL 05/15/2025 2:38 AM CDT [facility] LABORATORY SERVICES - [facility] RBC 4.63 4.50 - 5.40 M/uL 05/15/2025 2:38 AM CDT [employer] LABORATORY SERVICES - [facility] HEMOGLOBIN 13.6 13.6 - 16.5 g/dL 05/15/2025 2:38 AM CDT [facility] LABORATORY SERVICES - [facility] HEMATOCRIT 39.0(L) 40.0 - 48.0 % 05/15/2025 2:38 AM CDT [employer] LABORATORY SERVICES - [facility] MCV 84.2 82.0 - 99.0 fL 05/15/2025 2:38 AM CDT [email or web address] SERVICES - [facility] MCH 29.4 27.2 - 32.6 pg 05/15/2025 2:38 AM CDT [email or web address] SERVICES - [facility] MCHC 34.9 31.5 - 35.5 g/dL 05/15/2025 2:38 AM CDT [facility] SERVICES - [facility] PLATELETS 369(H) 140 - 350 K/uL 05/15/2025 2:38 AM CDT [facility] SERVICES - [facility] MPV 11.2 9.3 - 12.4 fL 05/15/2025 2:38 AM CDT [email or web address] SERVICES - [facility] RDW 12.8 11.5 - 14.5 % 05/15/2025 2:38 AM CDT [email or web address] SERVICES - [facility] RDW-STDEV 38.7 37.1 - 48.7 fL 05/15/2025 2:38 AM CDT [employer] LABORATORY SERVICES - [facility] Blood Venipuncture / Unknown 05/15/2025 1:09 AM CDT 05/15/2025 2:07 AM CDT us Bebe Otto MD HEMATOLOGY ORDERABLES Final Re sult [facility] SERVICES [facility] CLIA# [id number] [address] [place] [address] * (ABNORMAL) MAGNESIUM LEVEL (05/15/2025 1:09 AM CDT) Only the most recent of2 resultswithin the time period is included. MAGNESIUM 1.4(L) 1.6 - 2.6 mg/dL 05/15/2025 2:41 AM CDT [facility] LABORATORY SERVICES [facility] Blood Venipuncture / Unknown 05/15/2025 1:09 AM CDT 05/15/2025 2:07 AM CDT Bebe Otto MD CHEMISTRY ORDERABLES Final Res ult [facility] SERVICES [facility] CLIA# [id number] [address] [place] [address] * (ABNORMAL) COMPREHENSIVE METABOLIC PANEL (05/15/2025 1:09 AM CDT) Only the most recent of2 resultswithin the time period is included. SODIUM 136 136 - 145 mmol/L 05/15/2025 2:41 AM CDT [employer] LABORATORY SERVICES - . [facility] POTASSIUM 3.9 3.5 - 5.0 mmol/L 05/15/2025 2:41 AM T [employer] LABORATORY SERVICES - . [facility] CHLORIDE 102 98 - 107 mmol/L 05/15/2025 2:41 AM CDT [facility] CO2 23 22 - 29 mmol/L 05/15/2025 2:41 AM CDT [employer] LABORATORY SERVICES - [facility] CALCIUM 8.9 8.6 - 10.2 mg/dL 05/15/2025 2:41 AM CDT [employer] LABORATORY SERVICES - [facility] BUN 13 6 - 20 mg/dL 05/15/2025 2:41 AM T [employer] LABORATORY SERVICES - [facility] CREATININE 1.19(H) 0.67 - 1.17 mg/dL 05/15/2025 2:41 AM T [employer] LABORATORY SERVICES - [facility] GLUCOSE 154(H) 74 - 99 mg/dL 05/15/2025 2:41 AM [facility] TOTAL PROTEIN 6.9 6.7 - 8.6 g/dL 05/15/2025 2:41 AM [facility] ALBUMIN 3.8 3.5 - 5.2 g/dL 05/15/2025 2:41 AM [facility] BILIRUBIN TOTAL 0.4 0.0 - 1.2 mg/dL 05/15/2025 2:41 AM [facility] ALKALINE PHOSPHATASE 118 40 - 129 U/L 05/15/2025 2:41 AM [facility] AST 17 <41 U/L 05/15/2025 2:41 AM [facility] ALT 15 <42 U/L 05/15/2025 2:41 AM [facility] GFR >60 >=60 mL/min/1.7 3 sq meter 05/15/2025 2:41 AM [facility] Comment:eGFR calculated with 2020 CKD-EPI equation. Vegetarian diet, extremely high or low muscle mass, and may affect results. Cystatin C with Glomerular Filtration Rate is a suitable alternative for these patients. ANION GAP 11 8 - 16 mmol/L 05/15/2025 2:41 AM [facility] Blood Venipuncture / Unknown 05/15/2025 1:09 AM CDT 05/15/2025 2:07 AM CDT [facility] - 05/15/2025 2:41 AM CDT Samples containing indocyanine green cause interferences on Total and/or Direct Bilirubin and must not be measured. us Bebe Otto MD CHEMISTRY ORDERABLES Final Res ult [facility] CLIA# [id number] [address] [facility] [place], [place] [address] * (ABNORMAL) TROPONIN 6 HR, 5TH GEN (05/14/2025 10:50 PM CDT) Pathologist [facility] TROPONIN T, 6 HR 5TH GEN 22(H) <=15 ng/L 05/14/2025 11:19 PM CDT [facility] LABORATORY [facility] - [facility] DELTA 6HR TROPONIN T 8 See Interp. 05/14/2025 11:19 PM CDT [facility] LABORATORY [facility] Blood Venipuncture / Unknown 05/14/2025 10:50 PM CDT 05/14/2025 10:54 PM CDT Narrative [facility] LABORATORY SERVICES - [facility] - 05/14/2025 11:19 PM CDT Troponin elevated. Delta indeterminate. Delay in collection of timed specimen beyond recommended collection interval. Results must be interpreted in clinical context. us Bebe Otto MD CHEMISTRY ORDERABLES Final Res ult [facility] LABORATORY [facility]# [id number] [address] [facility] [place] [address] * (ABNORMAL) BLOOD GAS VENOUS (05/14/2025 5:55 PM CDT) [facility] PH BLOOD POC 7.31(L) 7.32 - 7.43 05/14/2025 5:55 PM CDT [facility] LABORATORY [facility] PCO2 POC 44 38 - 50 mm Hg 05/14/2025 5:55 PM CDT [facility] LABORATORY [facility] PO2 POC 35 25 - 40 mm Hg 05/14/2025 5:55 PM CDT [facility] LABORATORY [facility] HCO3 (CALC) POC 22 22 - 29 mmol/L 05/14/2025 5:55 PM CDT [facility] LABORATORY [facility] HEMOGLOBIN POC 13.5(L) 13.6 - 16.5 g/dL 05/14/2025 5:55 PM CDT [facility] LABORATORY [facility] O2 SATURATION POC 64 40 - 70 % 05/14/2025 5:55 PM CDT [facility] LABORATORY [facility] HEMATOCRIT POC 41 40 - 48 % 05/14/2025 5:55 PM CDT [facility] LABORATORY SERVICES [facility] Comment:Estimated Value PH TEMP CORRECT 7.31(L) 7.32 - 7.43 05/14/2025 5:55 PM CDT [facility] LABORATORY [facility] PCO2 TEMP CORRECT 44 38 - 50 mm Hg 05/14/2025 5:55 PM CDT [facility] LABORATORY [facility] PO2 TEMP CORRECT 35 25 - 40 mm Hg 05/14/2025 5:55 PM CDT [facility] LABORATORY [facility] - [facility] SPECIMEN SOURCE, GASES POC Venous 05/14/2025 5:55 PM CDT [facility] LABORATORY [facility] COMMENT, GASES POC Responsible Clinical Caregiver notified 05/14/2025 5:55 PM CDT [facility] LABORATORY [facility] PATIENT'S TEMPERATURE POC 37.0 degrees 05/14/2025 5:55 PM CDT [facility] LABORATORY [facility] Blood, venous 05/14/2025 5:5 5 PM CDT 05/14/2025 5:57 PM CDT Keegan Jones DO ABG ORDERABLES Final Resul t [facility]# [id number] [address] [facility] [place] [address] * CT ABDOMEN PELVIS W CONTRAST (05/14/2025 5:39 PM CDT) Anatomical Region Laterality Modality Abdomen Computed Tomogra phy 05/14/2025 5:33 PM CDT Impressions 05/14/2025 6:03 PM CDT IMPRESSION: 1. No acute inflammatory process identified within the abdomen or pelvis. DICTATION LOCATION: Location 1 - [facility] Narrative 05/14/2025 6:[address] ABDOMEN [...] or pelvis. DICTATION LOCATION: Location 1 - [facility] Lauri Gallardo MD CT ORDERABLES Final Resul t * TROPONIN 2 HR, 5TH GEN (05/14/2025 4:08 PM CDT) TROPONIN T, 2 HR 5TH GEN 13 <=15 ng/L 05/14/2025 5:37 PM CDT [facility] LABORATORY [facility] DELTA 2HR TROPONIN T -1 See Interp. 05/14/2025 5:37 PM CDT [facility] Blood Venipuncture / Unknown 05/14/2025 4:08 PM CDT 05/14/2025 4:29 PM CDT Narrative [facility] LABORATORY [facility] - 05/14/2025 5:37 PM CDT Troponin Detectable but normal range. Delta not changing. Delay in collection of timed specimen beyond recommended collection interval. Results must be interpreted in clinical context. Lauri Gallardo MD CHEMISTRY ORDERABLES Final Result Performing Organization Address City/[facility]/ZIP Co de Phone Number [facility] CLVT# [id number] [address] [place] [address] * TSH REFLEXIVE (05/14/2025 4:08 PM CDT) TSH 0.39 0.27 - 4.20 uIU/mL 05/14/2025 6:05 PM CDT [facility] Blood Venipuncture / Unknown 05/14/2025 4:08 PM CDT 05/14/2025 4:29 PM CDT Keegan Jones DO CHEMISTRY ORDERABLES Final Result [facility] CLIA# [id number] [address] [place] [address] * (ABNORMAL) LIPASE (05/14/2025 4:08 PM CDT) LIPASE 10(L) 13 - 60 U/L 05/14/2025 6:40 PM CDT [facility] LABORATORY [facility] Blood Venipuncture / Unknown 05/14/2025 4:08 PM CDT 05/14/2025 4:29 PM CDT Keegan Jones DO CHEMISTRY ORDERABLES Final Result [facility] CLIA# [id number] [address] [place] [address] * EKG 12-LEAD (05/14/2025 3:25 PM CDT) 05/14/2025 3:25 PM CDT Narrative INTERFACE SYSTEM - 05/14/2025 4:44 [place] [address] Test Date: 2025-05-14 Pat Name: PARKROSAMARIA BURNSR Department: 38 Room: [place] [address] Gender: Male 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1990 Requested By: LAURI Mendoza Order Number: [id number] Nicolette MD: Sina Stone Measurements Intervals [place] Rate: 79 P: 3 NH: 149 QRS: -12 QRSD: 91 T: 37 QT: 371 QTc: 426 Interpretive Statements Sinus arrhythmia Inferior infarct, old Electronically Signed On 05-14-2025 16:44:40 CDT by Sina Stone Procedure Note Sina Stone MD - 05/14/2025 [place] [address] Test Date: 2025-05-14 Pat Name: PARK YUE Department: 38 Room: [place] [address] Gender: Male 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1990 Requested By: LAURI GALLARDO U Order Number: [id number] Reading MD: Sina Stone Measurements Intervals [place] Rate: 79 P: 3 NH: 149 QRS: -12 QRSD: 91 T: 37 QT: 371 QTc: 426 Interpretive Statements Sinus arrhythmia Inferior infarct, old Electronically Signed On 05-14-2025 16:44:40 CDT by Sina Stone us Lauri Gallardo MD ECG ORDERABLES Final Resul t INTERFACE SYSTEM Refer to clinic/hospital department * DRUG SCREEN, URINE (05/14/2025 2:28 PM CDT) Pathologist [facility] AMPHETAMINE QUAL, URINE Negative Negative 05/14/2025 5:59 PM CDT [employer] LABORATORY SERVICES - [facility] BARBITURATE QUAL, URINE Negative Negative 05/14/2025 5:59 PM CDT [email or web address] SERVICES - [facility] BENZODIAZEPINE QUAL, URINE Negative Negative 05/14/2025 5:59 PM CDT [email or web address] SERVICES [facility] COCAINE QUAL URINE Negative Negative 2024 5:59 PM CDT [employer] LABORATORY SERVICES [facility] OPIATE QUAL, URINE Negative Negative 2024 5:59 PM CDT [employer] LABORATORY SERVICES [facility] CANNABINOIDS QUAL, URINE Negative Negative 05/14/2025 5:59 PM CDT [email or web address] SERVICES - [facility] PCP QUAL, URINE Negative Negative 5:59 PM CDT [employer] LABORATORY SERVICES - [facility] OXYCODONE QUAL, URINE Negative Negative 05/14/2025 5:59 PM CDT [email or web address] SERVICES [facility] METHADONE QUAL, URINE Negative Negative 05/14/2025 5:59 PM CDT [employer] LABORATORY SERVICES [facility] FENTANYL QUAL, URINE Negative Negative 05/14/2025 5:59 PM CDT [employer] LABORATORY SERVICES [facility] CREATININE, URINE 176.0 40.0 - 278.0 mg/dL 05/14/2025 5:59 PM CDT [employer] LABORATORY SERVICES [facility] Comment:Reference Range vari es with fluid intake and diet. Urine URINE SPECIMEN OBTAINED BY CLEAN CATCH PROCEDURE / Unknown 05/14/2025 2:28 PM CDT 05/14/2025 2:28 PM CDT Narrative [facility] LABORATORY SERVICES - [facility] - 05/14/2025 5:59 PM CDT This test [...] Jones DO URINE ORDERABLES Final Resu lt [facility]# [id number] [address] [facility] [address] [place] [address] * (ABNORMAL) URINALYSIS WITH REFLEX MICROSCOPIC (05/14/2025 2:28 PM CDT) COLOR UA Yellow Pale to Dark Yellow 05/14/2025 2:40 PM CDT [facility] LABORATORY [facility] CLARITY UA Clear Clear 05/14/2025 2:40 PM CDT [facility] LABORATORY [facility] SPECIFIC GRAVITY UA 1.023 1.003 - 1.035 05/14/2025 2:40 PM CDT [facility] LABORATORY [facility] PH UA 5.0 5.0 - 8.0 05/14/2025 2:40 PM CDT [facility] LABORATORY [facility] LEUKOCYTE ESTERASE UA Negative Negative 05/14/2025 2:40 PM CDT [facility] LABORATORY [facility] NITRITE UA Negative Negative 05/14/2025 2:40 PM CDT [facility] LABORATORY [facility] PROTEIN UA 3+(A) Negative 05/14/2025 2:40 PM CDT [facility] LABORATORY [facility] GLUCOSE UA 2+(A) Negative 05/14/2025 2:40 PM CDT [facility] LABORATORY SERVICES [facility] KETONES UA Negative Negative 05/14/2025 2:40 PM CDT [facility] LABORATORY SERVICES [facility] UROBILINOGEN UA Normal <2.0 mg/dL 2:40 PM CDT [employer] LABORATORY SERVICES - [facility] BILIRUBIN UA Negative Negative 05/14/2025 2:40 PM CDT [employer] LABORATORY SERVICES - [facility] BLOOD UA 1+(A) Negative 05/14/2025 2:40 PM CDT [employer] LABORATORY SERVICES - [facility] WBC UA 0-2 0 - 2 /hpf 05/14/2025 2:40 PM CDT [employer] LABORATORY SERVICES - [facility] RBC UA 6-10(A) 0 - 2 /hpf 05/14/2025 2:40 PM CDT [employer] LABORATORY SERVICES - [facility] BACTERIA UA Negative Negative /hpf 05/14/2025 2:40 PM CDT [employer] LABORATORY SERVICES - [facility] HYALINE CAST 6-10(A) None Seen, 0-2 /lpf 05/14/2025 2:40 PM CDT [employer] LABORATORY SERVICES [facility] Urine URINE SPECIMEN OBTAINED BY CLEAN CATCH PROCEDURE / Unknown 05/14/2025 2:28 PM CDT 05/14/2025 2:28 PM CDT Lauri Gallardo MD URINE ORDERABLES Final Resu lt [facility] CLVT# [id number] [address] [facility] [place] [address] * TROPONIN BASELINE, 5TH GEN (05/14/2025 2:00 PM CDT) TROPONIN T, BASELINE 5TH GEN 14 <=15 ng/L 05/14/2025 3:32 PM CDT [employer] LABORATORY SERVICES [facility] Blood Venipuncture / Unknown 05/14/2025 2:00 PM CDT 05/14/2025 2:12 PM CDT Narrative [facility] LABORATORY [facility] - 05/14/2025 3:32 PM CDT Troponin Detectable but normal range. Lauri Gallardo MD CHEMISTRY ORDERABLES Final Result [facility] CLIA# [id number] [address] [place] [address] * (ABNORMAL) CBC WITH DIFFERENTIAL (05/14/2025 2:00 PM CDT) [facility] Signature WBC 11.2(H) 4.0 - 9.8 K/uL 05/14/2025 2:29 PM CDT [facility] LABORATORY SERVICES - [facility] RBC 4.72 4.50 - 5.40 M/uL 05/14/2025 2:29 PM CDT [facility] LABORATORY SERVICES - [facility] HEMOGLOBIN 14.0 13.6 - 16.5 g/dL 05/14/2025 2:29 PM CDT [facility] LABORATORY SERVICES - [facility] HEMATOCRIT 40.3 40.0 - 48.0 % 05/14/2025 2:29 PM CDT [facility] LABORATORY SERVICES - [facility] MCV 85.4 82.0 - 99.0 fL 05/14/2025 2:29 PM CDT [facility] LABORATORY SERVICES - [facility] MCH 29.7 27.2 - 32.6 pg 05/14/2025 2:29 PM CDT [facility] LABORATORY SERVICES - [facility] MCHC 34.7 31.5 - 35.5 g/dL 05/14/2025 2:29 PM CDT [facility] LABORATORY SERVICES - [facility] RDW 12.8 11.5 - 14.5 % 05/14/2025 2:29 PM CDT [facility] LABORATORY SERVICES - . [facility] RDW-STDEV 39.7 37.1 - 48.7 fL 05/14/2025 2:29 PM CDT [facility] LABORATORY SERVICES - [facility] PLATELETS 347 140 - 350 K/uL 05/14/2025 2:29 PM CDT [facility] LABORATORY SERVICES - [facility] MPV 10.9 9.3 - 12.4 fL 05/14/2025 2:29 PM CDT [facility] SERVICES [facility] NEUTROPHILS 81 % 05/14/2025 2:29 PM CDT [facility] LAB[facility]ATORY SERVICES - [facility] LYMPHOCYTES 14 % 05/14/2025 2:29 PM CDT [facility] LAB[facility]ATORY SERVICES - [facility] MONOCYTES 3 % 05/14/2025 2:29 PM CDT [facility]ATORY SERVICES - [facility] EOSINOPHILS 0 % 05/14/2025 2:29 PM CDT [facility] LABORATORY SERVICES - [facility] BASOPHILS 1 % 05/14/2025 2:29 PM CDT [facility] LABORATORY SERVICES - . [facility] IMMATURE GRANULOCYTES 0 % 05/14/2025 2:29 PM CDT [facility] LABORATORY [facility] - . [facility] NEUTROPHIL ABSOLUTE 9.10(H) 1.90 - 7.00 K/uL 05/14/2025 2:29 PM CDT [facility] LABORATORY SERVICES - . [facility] LYMPHOCYTE ABSOLUTE 1.59 0.70 - 4.50 K/uL 05/14/2025 2:29 PM CDT [facility] LABORATORY SERVICES - . [facility] MONOCYTE ABSOLUTE 0.36 0.10 - 1.30 K/uL 05/14/2025 2:29 PM CDT [facility] LABORATORY SERVICES - . [facility] EOSINOPHIL ABSOLUTE 0.04 0.00 - 0.70 K/uL 05/14/2025 2:29 PM CDT [facility] LABORATORY SERVICES - . [facility] BASOPHILS ABSOLUTE 0.07 0.00 - 0.20 K/uL 05/14/2025 2:29 PM CDT [facility] LABORATORY SERVICES - . [facility] IMMATURE GRANULOCYTES ABSOLUTE 0.04(H) 0.00 - 0.03 K/uL 05/14/2025 2:29 PM CDT [facility] LABORATORY SERVICES - [facility] Blood Venipuncture / Unknown 05/14/2025 2:00 PM CDT 05/14/2025 2:12 PM CDT Lauri Gallardo MD HEMATOLOGY ORDERABLES Final Result [facility]# [id number] [address] [facility] [place], [place] [address] * (ABNORMAL) PHOSPHORUS (05/14/2025 2:00 PM CDT) PHOSPHORUS 2.3(L) 2.5 - 4.5 mg/dL 05/14/2025 3:32 PM CDT [facility] LABORATORY [facility] Blood Venipuncture / Unknown 05/14/2025 2:00 PM CDT 05/14/2025 2:12 PM CDT Result [facility] Lauri Gallardo MD CHEMISTRY ORDERABLES Final Result Performing Organization Address City/[facility]/ZIP Co de Phone Number [facility]# [id number] [address] [place] [address] * Critical Care (05/14/2025 12:30 PM CDT) [...] no Care discussed with: admitting provider Result [facility] Keegan Jones DO PROCEDURE/MINOR SURGICAL OR DERABLES Final Result * MICROALBUMIN/CREATININE RATIO, RANDOM UR (04/23/2014 7:42 PM CDT) MICROALBUMIN/C REAT RATIO, UR 9 0 - 29 mg/g creatinine [facility] Urine 04/23/2014 7:42 PM CDT 04/23/2014 9:02 PM CDT Comment:URINE Result [facility] Jae Martínez MD URINE ORDERABLES Final Result Performing Organization Address City/[facility]/ZIP Co de Phone Number [facility] [employer]# [id number] [address] [place] [address] * LDL CHOLESTEROL, DIRECT (04/23/2014 7:42 PM CDT) LDL CHOLESTEROL, DIRECT 72 <=99 mg/dL [facility] Blood 04/23/2014 7:42 PM CDT 04/23/2014 9:02 PM CDT Jae Martínez MD CHEMISTRY ORDERABLES Final Resul t Performing Organization Address [facility] de Phone Number [facility] CLIA# [id number] [address] [place] [address] * (ABNORMAL) HEMOGLOBIN A1C (04/23/2014 7:42 PM CDT) HEMOGLOBIN A1C 11.4(H) 4.1 - 6.1 % of Hgb [facility] EST. AVG GLUCOSE, A1C 280 mg/dL [facility] Comment: The reported estimated average glucose (eAG) based on the HbA1c determination is calculated using the ADAG study equation. Further interpretative information is available in the Laboratory Services Policy Manual on the [facility] Intranet at: [email or web address]/ Blood 04/23/2014 7:42 PM CDT 04/23/2014 9:02 PM CDT Jae Martínez MD CHEMISTRY ORDERABLES Final Resul t Performing Organization Address [facility] Co de Phone Number [facility]# [id number] [address] [place] [address] from Last 3 Months or Most Recently Relevant to Health Maintenance Insurance [employer] C20 Advance Directives For more information, please contact: [phone] * Full Code (Latest Code Status on File) Date Activated Date Inactivated Comments 05/14/2025 9:07 PM 05/15/2025 4:27 PM * Full Code Date Activated Date Inactivated Comments 06/23/2024 11:22 PM 06/25/2024 12:12 PM Care Teams Coal Hauler Operator Relationship Specialty Start Date End Date Jae Martínez MD PCP - General 02/22/09
--- OUTSIDE RECORDS SUMMARY | 2025-05-16 20:50 | XMS_ITS | Encounter Summary ---
Author Organization [facility] Address 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
--- OUTSIDE RECORDS SUMMARY | 2025-05-16 20:50 | XMS_ITS | Encounter Summary ---
Author Organization [facility] Address 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
--- OUTSIDE RECORDS SUMMARY | 2025-05-16 20:50 | XMS_ITS | Encounter Summary ---
Author Organization [facility] Address 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 Gender Identity Not on file Sexual Orientation Not on file documented as of this encounter Plan of Treatment Not on file documented as of this encounter Procedures Procedure Name Priority Date/Time Associated Diagnosis Comments XR FOOT 3+ VW RIGHT Routine 09/27/2008 1 :43 PM MANAGER BILINGUAL XR ANKLE 3+ VW RIGHT Routine 09/27/2008 1:43 PM MANAGER BILINGUAL documented in this encounter Results * XR ANKLE 3+ VW RIGHT (09/27/2008 1:43 PM MANAGER BILINGUAL) Anatomical Region Laterality Modality Ankle / Foot Other 09/27/2008 1:43 PM MANAGER BILINGUAL Narrative 09/27/2008 2:44 PM MANAGER BILINGUAL [facility] [address] [place], [place] [address] Admit Date: 09/27/2008 LOIS TURNER Sex: M Admit Prov: PERCY SILVA Date: 1990 Primary Care Prov: PERCY SILVA CMRN: [id number] Room: BALTAZAR N: [id number] IMAGING SERVICES Ordering Prov: N/A Accession Number: [id number] Interpretation THREE VIEWS OF THE RIGHT ANKLE. [...] Procedure Note Maral Joyce MD - 09/27/2008 [id number] [place], [place] [address] Admit Date: 09/27/2008 LOIS TURNER Sex: M Admit Prov: VISHNU SILVAKERRI Funk Date:1990 Primary Care Prov: VISHNU SILVAKERRI Funk CMRN: [id number] Room: JOSUÉFloyd N: [id number] IMAGING SERVICES Ordering Prov: N/A Interpretation THREE [...] FOOT 3+ VW RIGHT (09/27/2008 1:43 PM MANAGER BILINGUAL) Anatomical Region Laterality Modality Ankle / Foot Other 09/27/2008 1:43 PM MANAGER BILINGUAL Narrative 09/27/2008 2:44 PM MANAGER BILINGUAL [address] [address] [place], [place] [address] Admit Date: 09/27/2008 LOIS TURNER Sex: M Admit Prov: PERCY SILVA Date: 1990 Primary Care Prov: PERCY SILVA CMRN: [id number] Room: BALTAZAR N: [id number] IMAGING SERVICES Ordering Prov: N/A Accession Number: [id number] Interpretation THREE VIEWS OF THE RIGHT FOOT, 09/27/2008 History: Pain. Findings: There is no evidence of fracture or malalignment. . Dictated by: MARAL JOYCE 09/27/2008 13:53 Electronically signed by: MARAL JOYCE 09/27/2008 14:42 Transcribed: 09/27/2008 14:41 DKT Procedure Note Maral Joyce MD - 09/27/2008 [address] [address] [facility] [place], [place] [address] Admit Date: 09/27/2008 LOIS TURNER Sex: M Admit Prov: PERCY SILVA Date:1990 Primary Care Prov: PERCY SILVA CMRN: [id number] Room: JOSUÉFloyd N: [id number] IMAGING SERVICES Ordering Prov: N/A Interpretation THREE [...] foot documented in this encounter Care Teams Control Room Tender Relationship Specialty Start Date End Date Jae Martínez MD PCP - General 02/22/09 documented as of this encounter
--- OUTSIDE RECORDS SUMMARY | 2025-05-16 20:50 | XMS_ITS | Encounter Summary ---
Author Organization [facility] Address [address] [place] [address] Care Team Providers Care Contact Agent Name Role Phone Jae Martínez MD Primary Care Provider [phone] Reason for Visit * Reason Comments Nausea Pt to ED with n/v on set yesterday. +back and abd pain. Hx type1 DM. BG has been fine at home. Pt thinks he is dehydrated. * Auth/Cert (Routine) Specialty Diagnoses / Procedures Referred By Contac t Referred To Contact Internal Medicine Morro Donahue MD [address] [address] Phone: tel: fax: [facility] [address] [place] [address] Phone: tel: fax: Referral ID Status Reason Start Date Expiration Date Visits Re quested Visits Authorized [id number] 1 1 Encounter Details Date Type Department Care Team (Latest Contact Info) Description 05/14/2025 3:07 PM CDT - 05/15/2025 2:12 PM CDT Hospital Encounter [facility] [address] [place] [address] Lauri Gallardo MD [address] [place] [address] Keegan Jones, [address] [place] [id number] Morro Donahue MD [address] [address] Cindy Estrada MD 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 male 1990 CSN: [id number] Date of Admission: 05/14/2025 Date of Discharge: [...] to follow for discharge planning. TUCKER BarcenasW Financial Associate II [facility] * Bebe Otto MD - 05/14/2025 7:35 PM CDT [facility] This patient is being seen on 05/14/2025 in [facility] using bidirectional synchronous audio and video [...] DM type 1 (diabetes mellitus, type 1) ([facility]) GERD (gastroesophageal reflux disease) Hypertension Past Surgical History: Procedure Laterality Date HX ESOPHAGOGASTRODUODENOSCOPY N/A 06/24/2024 ESOPHAGOGASTRODUODENOSCOPY performed by Bhavani Alejandre DO at [facility] HX TUMOR REMOVAL benign tumor, [...] blood sugar diagnostic (ONE TOUCH ULTRA TEST) [facility] [place] [facility] No No Sig: [...] 37.0 degrees Handoff provided to STLO at [facility] via secure chat. Bebe Otto MD 05/14/25 9:17 PM Adult Hospitalist [employer] 20:20 Mobile To reach the vHospitalist team 24 hours a day, please place an e-Ticket through the New [employer] tab in [employer] or call us directly at [phone]. * Kasandra Locke NP - 05/14/2025 6:13 PM CDT [facility] NOTE 05/14/25 6:13 PM Contacted for: [...] day, please place an e-Ticket through the [employer] in [employer] or call us directly at [phone]. Cosigned by Aime Freeman Ud, MD at 05/14/2025 6:48 PM CDT documented in this encounter H&P Notes * Cindy Estrada MD - 05/15/2025 9:05 AM CDT [facility] Adult Hospitalist H&P Patient Name: [...] ESOPHAGOGASTRODUODENOSCOPY performed by Bhavani Alejandre DO at [facility] HX TUMOR REMOVAL benign tumor, [...] blood sugar diagnostic (ONE TOUCH ULTRA TEST) [facility] [place] [facility] No No Sig: [...] Cindy Estrada MD Please contact me via [employer] Secure Chat from 7am-7pm After hours please place E-ticket to [facility] documented in this encounter ED Notes * Trang Scott RN - 05/14/2025 7:23 PM CDT Report taken from LULY Rapp all questions answered. This RN assumes care at this time. * Marcelina Joseph RT - 05/14/2025 5:40 PM CDT Images from the original note were not included. [facility] IMS Medication and Flush Protocol- CT and MRI Procedures [facility] Approved by: [facility]-Medical Executive Committee Approval Date: 05/08/2025 ORDERS ARE ENTERED ???PER PROTOCOL?? Enter the protocol in the patient's electronic health record using [employer]: .imagingctmriprFairShare Communication Orders: For ordered imaging procedures requiring [...] contrast dye. If at any time the Printed Circuit Board Reworker has a question about which option to [...] is oral. May use nasoenteric tube ifneeded. [place] to 3 months Administer up to 90mL [...] than 55kg and confirm dose with radiologist. [place] to 15 years old Administer 2.2mL/kg (to [...] number of NSF cases: Gadodiamide (Omniscan?? - [employer]) Gadopentetate dimeglumine (Magnevist?? - Power[employer]) Gadoversetamide (OptiMARK?? - Guerbet) Group II: Agents associated with few, if any, unconfounded cases of NSF: Gadobenate dimeglumine (MultiHance?? - [employer]) Gadobutrol (Gadavist?? - [employer]; Gadovist in many countries) Gadoteric acid (Dotarem?? - Guerbet, Clariscan - [employer]) Gadoteridol (ProHance?? - Animalvitaecco Diagnostics) Gadoxetate disodium (Eovist - [employer]; Primovist in many countries) Gadopiclenol (Vueway - Animalvitaecco Diagnostics) * Lauri Gallardo MD - 05/14/2025 [...] Critical Care HISTORY OF PRESENT ILLNESS Mr. FrenchG[id number]-tngt-old type I diabetic presents with nausea and [...] abdomen or pelvis. DICTATION LOCATION: Location 1 [facility] EKG: Time 1644, normal sinus rhythm 79, IA interval 0.14, QRS 0.09, QT 0.37, no [...] [E10.9] Type 1 diabetes mellitus without complication ([facility]) DISPOSITION, EDUCATION AND MEDICATION RECONCILIATION Medications reconciled. [...] the ED nurse for any additional information.* documented in this encounter Plan of Treatment [...] - 99 mg/dL 05/15/2025 12:24 PM CDT [facility] SPECIMEN SOURCE, GLUCOSE POC Whole Blood 05/15/2025 12:24 PM CDT [facility] Blood, whole 05/15/2025 12:2 4 PM CDT 05/15/2025 12:34 PM CDT us Cindy Estrada MD POINT OF CARE TESTING Final Resu Performing Organization Address [facility]/ZIP Co de Phone Number [facility] CLIA# [id number] [address] [place] [address] * (ABNORMAL) POC GLUCOSE (05/15/2025 8:57 AM CDT) GLUCOSE POC 245(H) 74 - 99 mg/dL 05/15/2025 8:57 AM CDT [facility] SPECIMEN SOURCE, GLUCOSE POC Whole Blood 05/15/2025 8:57 AM CDT [facility] Blood, whole 05/15/2025 8:57 AM CDT 05/15/2025 9:06 AM CDT us Cindy Estrada MD POINT OF CARE TESTING Final Resu lt Performing Organization Address [facility]/ZIP Co de Phone Number [facility] CLIA# [id number] [address] [place] [address] * (ABNORMAL) POC GLUCOSE (05/15/2025 5:16 AM CDT) GLUCOSE POC 262(H) 74 - 99 mg/dL 05/15/2025 5:16 AM CDT [facility] SPECIMEN SOURCE, GLUCOSE POC Whole Blood 05/15/2025 5:16 AM CDT [facility] COMMENT, GLU POC Notified RN/MD 05/15/2025 5:16 AM CDT [facility] Blood, whole 05/15/2025 5:16 AM CDT 05/15/2025 5:30 AM CDT Morro Donahue MD POINT OF CARE TESTING Final Re sult [employer] [id number] [address] [facility] [facility] [place] [address] * (ABNORMAL) COMPREHENSIVE METABOLIC PANEL (05/15/2025 1:09 AM CDT) SODIUM 136 136 - 145 mmol/L 05/15/2025 2:41 AM T [facility] POTASSIUM 3.9 3.5 - 5.0 mmol/L 05/15/2025 2:41 AM T [facility] CHLORIDE 102 98 - 107 mmol/L 05/15/2025 2:41 AM T [facility] CO2 23 22 - 29 mmol/L 05/15/2025 2:41 AM T [facility] CALCIUM 8.9 8.6 - 10.2 mg/dL 05/15/2025 2:41 AM T [facility] BUN 13 6 - 20 mg/dL 05/15/2025 2:41 AM T [facility] CREATININE 1.19(H) 0.67 - 1.17 mg/dL 05/15/2025 2:41 AM T [facility] GLUCOSE 154(H) 74 - 99 mg/dL 05/15/2025 2:41 AM T [facility] TOTAL PROTEIN 6.9 6.7 - 8.6 g/dL 05/15/2025 2:41 AM T [facility] ALBUMIN 3.8 3.5 - 5.2 g/dL 05/15/2025 2:41 AM [facility] BILIRUBIN TOTAL 0.4 0.0 - 1.2 mg/dL 05/15/2025 2:41 AM T [facility] ALKALINE PHOSPHATASE 118 40 - 129 U/L 05/15/2025 2:41 AM [facility] AST 17 <41 U/L 05/15/2025 2:41 AM [facility] ALT 15 <42 U/L 05/15/2025 2:41 AM [facility] GFR >60 >=60 mL/min/1.7 3 sq meter 05/15/2025 2:41 AM [facility] Comment:eGFR calculated with 2020 CKD-EPI equation. Vegetarian diet, extremely high or low muscle mass, and may affect results. Cystatin C with Glomerular Filtration Rate is a suitable alternative for these patients. ANION GAP 11 8 - 16 mmol/L 05/15/2025 2:41 AM [facility] Blood Venipuncture / Unknown 05/15/2025 1:09 AM CDT 05/15/2025 2:07 AM CDT [facility] - 05/15/2025 2:41 AM CDT Samples containing indocyanine green cause interferences on Total and/or Direct Bilirubin and must not be measured. us Bebe Otto MD CHEMISTRY ORDERABLES Final Res ult [facility] CLIA# [id number] [address] [facility] [place] [place] [id number] * (ABNORMAL) CBC WITHOUT DIFFERENTIAL (05/15/2025 1:09 AM CDT) WBC 14.2(H) 4.0 - 9.8 K/uL 05/15/2025 2:38 AM T [facility] RBC 4.63 4.50 - 5.40 M/uL 05/15/2025 2:38 AM CDT [facility] HEMOGLOBIN 13.6 13.6 - 16.5 g/dL 05/15/2025 2:38 AM CDT [facility] HEMATOCRIT 39.0(L) 40.0 - 48.0 % 05/15/2025 2:38 AM CDT [facility] - . [facility] MCV 84.2 82.0 - 99.0 fL 05/15/2025 2:38 AM CDT [facility] MCH 29.4 27.2 - 32.6 pg 05/15/2025 2:38 AM CDT [facility] - . [facility] MCHC 34.9 31.5 - 35.5 g/dL 05/15/2025 2:38 AM CDT [facility] - . [facility] PLATELETS 369(H) 140 - 350 K/uL 05/15/2025 2:38 AM CDT [facility] - . [facility] MPV 11.2 9.3 - 12.4 fL 05/15/2025 2:38 AM CDT [facility] - . [facility] RDW 12.8 11.5 - 14.5 % 05/15/2025 2:38 AM CDT [facility] RDW-STDEV 38.7 37.1 - 48.7 fL 05/15/2025 2:38 AM T [facility] - . [facility] Blood Venipuncture / Unknown 05/15/2025 1:09 AM CDT 05/15/2025 2:07 AM CDT us Bebe Otto MD HEMATOLOGY ORDERABLES Final Re sult [facility] [id number] [address] [facility] [place] [address] * (ABNORMAL) MAGNESIUM LEVEL (05/15/2025 1:09 AM CDT) MAGNESIUM 1.4(L) 1.6 - 2.6 mg/dL 05/15/2025 2:41 AM CDT [facility] Blood Venipuncture / Unknown 05/15/2025 1:09 AM CDT 05/15/2025 2:07 AM CDT Bebe Otto MD CHEMISTRY ORDERABLES Final Res ult Performing Organization Address [facility]/ZIP Co de Phone Number [facility]# [id number] [address] [place] [address] * (ABNORMAL) POC GLUCOSE (05/15/2025 12:42 AM CDT) GLUCOSE POC 161(H) 74 - 99 mg/dL 05/15/2025 12:42 AM CDT [facility] SPECIMEN SOURCE, GLUCOSE POC Whole Blood 05/15/2025 12:42 AM CDT [facility] COMMENT, GLU POC Notified RN/MD 05/15/2025 12:42 AM CDT [facility] Blood, whole 05/15/2025 12:4 2 AM CDT 05/15/2025 12:53 AM CDT Morro Donahue MD POINT OF CARE TESTING Final Re sult Performing Organization Address [facility]/ZIP Co de Phone Number [facility]# [id number] [address] [place] [address] * (ABNORMAL) TROPONIN 6 HR, 5TH GEN (05/14/2025 10:50 PM CDT) TROPONIN T, 6 HR 5TH GEN 22(H) <=15 ng/L 05/14/2025 11:19 PM CDT [facility] DELTA 6HR TROPONIN T 8 See Interp. 05/14/2025 11:19 PM CDT [facility] [employer] [facility] Blood Venipuncture / Unknown 05/14/2025 10:50 PM CDT 05/14/2025 10:54 PM CDT Narrative [facility] - 05/14/2025 11:19 PM CDT Troponin elevated. Delta indeterminate. Delay in collection of timed specimen beyond recommended collection interval. Results must be interpreted in clinical context. Bebe Otto MD CHEMISTRY ORDERABLES Final Res ult Performing Organization Address [facility]/ZIP Co de Phone Number [facility]# [id number] [address] [place] [address] * (ABNORMAL) POC GLUCOSE (05/14/2025 10:15 PM CDT) GLUCOSE POC 177(H) 74 - 99 mg/dL 05/14/2025 10:15 PM CDT [facility] SPECIMEN SOURCE, GLUCOSE POC Whole Blood 05/14/2025 10:15 PM CDT [facility] COMMENT, GLU POC Notified RN/MD 05/14/2025 10:15 PM CDT [facility] Blood, whole 05/14/2025 10:1 5 PM CDT 05/14/2025 10:22 PM CDT Morro Donahue MD POINT OF CARE TESTING Final Re sult Performing Organization Address [facility]/ZIP Co de Phone Number [facility]# [id number] [address] [place] [address] * (ABNORMAL) BLOOD GAS VENOUS (05/14/2025 5:55 PM CDT) PH BLOOD POC 7.31(L) 7.32 - 7.43 05/14/2025 5:55 PM CDT [facility] PCO2 POC 44 38 - 50 mm Hg 05/14/2025 5:55 PM CDT [facility] PO2 POC 35 25 - 40 mm Hg 05/14/2025 5:55 PM CDT [facility] HCO3 (CALC) POC 22 22 - 29 mmol/L 05/14/2025 5:55 PM CDT [facility] HEMOGLOBIN POC 13.5(L) 13.6 - 16.5 g/dL 05/14/2025 5:55 PM CDT [facility] O2 SATURATION POC 64 40 - 70 % 05/14/2025 5:55 PM CDT [facility] HEMATOCRIT POC 41 40 - 48 % 05/14/2025 5:55 PM CDT [facility] Comment:Estimated Value PH TEMP CORRECT 7.31(L) 7.32 - 7.43 05/14/2025 5:55 PM CDT [facility] PCO2 TEMP CORRECT 44 38 - 50 mm Hg 05/14/2025 5:55 PM CDT [facility] PO2 TEMP CORRECT 35 25 - 40 mm Hg 05/14/2025 5:55 PM CDT [facility] SPECIMEN SOURCE, GASES POC Venous 05/14/2025 5:55 PM CDT [facility] COMMENT, GASES POC Responsible Clinical Caregiver notified 05/14/2025 5:55 PM CDT [facility] PATIENT'S TEMPERATURE POC 37.0 degrees 05/14/2025 5:55 PM CDT [facility] Blood, venous 05/14/2025 5:5 5 PM CDT 05/14/2025 5:57 PM CDT Keegan Jones DO ABG ORDERABLES Final Resul t [facility] [id number] [address] [facility] [address] [place] [address] * CT ABDOMEN PELVIS W CONTRAST (05/14/2025 5:39 PM CDT) Anatomical Region Laterality Modality Abdomen Computed Tomogra phy 05/14/2025 5:33 PM CDT Impressions 05/14/2025 6:03 PM CDT IMPRESSION: 1. No acute inflammatory process identified within the abdomen or pelvis. DICTATION LOCATION: Location 1 - [facility] 05/14/2025 6:[address] ABDOMEN PELVIS [...] or pelvis. DICTATION LOCATION: Location 1 - [facility] Lauri Gallardo MD CT ORDERABLES Final Resul t * TSH REFLEXIVE (05/14/2025 4:08 PM CDT) TSH 0.39 0.27 - 4.20 uIU/mL 05/14/2025 6:05 PM CDT [facility] Blood Venipuncture / Unknown 05/14/2025 4:08 PM CDT 05/14/2025 4:29 PM CDT Keegan Jones DO CHEMISTRY ORDERABLES Final Result Performing Organization Address [facility]/ZIP Co de Phone Number [facility]# [id number] [address] [place] [address] * (ABNORMAL) LIPASE (05/14/2025 4:08 PM CDT) LIPASE 10(L) 13 - 60 U/L 05/14/2025 6:40 PM CDT [facility] Blood Venipuncture / Unknown 05/14/2025 4:08 PM CDT 05/14/2025 4:29 PM CDT Keegan Jones DO CHEMISTRY ORDERABLES Final Result [facility]# [id number] [address] [place] [address] * TROPONIN 2 HR, 5TH GEN (05/14/2025 4:08 PM CDT) TROPONIN T, 2 HR 5TH GEN 13 <=15 ng/L 05/14/2025 5:37 PM CDT [facility] DELTA 2HR TROPONIN T -1 See Interp. 05/14/2025 5:37 PM CDT [facility] Blood Venipuncture / Unknown 05/14/2025 4:08 PM CDT 05/14/2025 4:29 PM CDT Narrative [facility] - 05/14/2025 5:37 PM CDT Troponin Detectable but normal range. Delta not changing. Delay in collection of timed specimen beyond recommended collection interval. Results must be interpreted in clinical context. 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1990 Requested By: LAURI Mendoza Order Number: [id number] Reading MD: Sina Stone Measurements Intervals [place] Rate: 79 P: 3 IA: 149 QRS: -12 QRSD: 91 T: 37 QT: 371 QTc: 426 Interpretive Statements Sinus arrhythmia Inferior infarct, old Electronically Signed On 05-14-2025 16:44:40 CDT by Sina Stone us Lauri Gallardo MD ECG ORDERABLES Final Resul t INTERFACE SYSTEM Refer to clinic/hospital department * DRUG SCREEN, URINE (05/14/2025 2:28 PM CDT) AMPHETAMINE QUAL, URINE Negative Negative 05/14/2025 5:59 PM CDT [facility] BARBITURATE QUAL, URINE Negative Negative 05/14/2025 5:59 PM CDT [facility] BENZODIAZEPINE QUAL, URINE Negative Negative 05/14/2025 5:59 PM CDT [facility] COCAINE QUAL URINE Negative Negative 2024 5:59 PM CDT [facility] OPIATE QUAL, URINE Negative Negative 2024 5:59 PM CDT [facility] CANNABINOIDS QUAL, URINE Negative Negative 05/14/2025 5:59 PM CDT [facility] PCP QUAL, URINE Negative Negative 5:59 PM CDT [facility] OXYCODONE QUAL, URINE Negative Negative 05/14/2025 5:59 PM CDT [facility] METHADONE QUAL, URINE Negative Negative 05/14/2025 5:59 PM CDT [facility] FENTANYL QUAL, URINE Negative Negative 05/14/2025 5:59 PM CDT [facility] CREATININE, URINE 176.0 40.0 - 278.0 mg/dL 05/14/2025 5:59 PM CDT [facility] Comment:Reference Range vari es with fluid intake and diet. Urine URINE SPECIMEN OBTAINED BY CLEAN CATCH PROCEDURE / Unknown 05/14/2025 2:28 PM CDT 05/14/2025 2:28 PM CDT [facility] - 05/14/2025 5:59 PM CDT This test [...] Jones DO URINE ORDERABLES Final Resu lt [facility]# [id number] [address] [facility] [address] * (ABNORMAL) URINALYSIS WITH REFLEX MICROSCOPIC (05/14/2025 2:28 PM CDT) COLOR UA Yellow Pale to Dark Yellow 05/14/2025 2:40 PM CDT [facility] CLARITY UA Clear Clear 05/14/2025 2:40 PM CDT [facility] SPECIFIC GRAVITY UA 1.023 1.003 - 1.035 05/14/2025 2:40 PM T [facility] PH UA 5.0 5.0 - 8.0 05/14/2025 2:40 PM CDT [facility] LEUKOCYTE ESTERASE UA Negative Negative 05/14/2025 2:40 PM CDT [facility] NITRITE UA Negative Negative 05/14/2025 2:40 PM CDT [facility] [facility] PROTEIN UA 3+(A) Negative 05/14/2025 2:40 PM CDT [facility] GLUCOSE UA 2+(A) Negative 05/14/2025 2:40 PM CDT [facility] KETONES UA Negative Negative 05/14/2025 2:40 PM CDT [facility] UROBILINOGEN UA Normal <2.0 mg/dL 2:40 PM CDT [facility] [employer] [facility] BILIRUBIN UA Negative Negative 05/14/2025 2:40 PM CDT [facility] BLOOD UA 1+(A) Negative 05/14/2025 2:40 PM CDT [facility] WBC UA 0-2 0 - 2 /hpf 05/14/2025 2:40 PM CDT [facility] RBC UA 6-10(A) 0 - 2 /hpf 05/14/2025 2:40 PM CDT [facility] BACTERIA UA Negative Negative /hpf 05/14/2025 2:40 PM CDT [facility] HYALINE CAST 6-10(A) None Seen, 0-2 /lpf 05/14/2025 2:40 PM CDT [employer] [facility] Urine URINE SPECIMEN OBTAINED BY CLEAN CATCH PROCEDURE / Unknown 05/14/2025 2:28 PM CDT 05/14/2025 2:28 PM CDT us Lauri Gallardo MD URINE ORDERABLES Final Resu lt [facility]# [id number] [address] [place] [id number] * TROPONIN BASELINE, 5TH GEN (05/14/2025 2:00 PM CDT) TROPONIN T, BASELINE 5TH GEN 14 <=15 ng/L 05/14/2025 3:32 PM CDT [facility] ISIDRO Blood Venipuncture / Unknown 05/14/2025 2:00 PM CDT 05/14/2025 2:12 PM CDT Narrative [facility] - 05/14/2025 3:32 PM CDT Troponin Detectable but normal range. Lauri Gallardo MD CHEMISTRY ORDERABLES Final Result [facility] CLIA# [id number] [address] [place] [address] * (ABNORMAL) PHOSPHORUS (05/14/2025 2:00 PM CDT) PHOSPHORUS 2.3(L) 2.5 - 4.5 mg/dL 05/14/2025 3:32 PM CDT [facility] Blood Venipuncture / Unknown 05/14/2025 2:00 PM CDT 05/14/2025 2:12 PM CDT Lauri Gallardo MD CHEMISTRY ORDERABLES Final Result Performing Organization Address City/[facility]/ZIP Co de Phone Number [facility] CLIA# [id number] [address] [place] [address] * MAGNESIUM LEVEL (05/14/2025 2:00 PM CDT) MAGNESIUM 1.7 1.6 - 2.6 mg/dL 05/14/2025 3:32 PM CDT [facility] Blood Venipuncture / Unknown 05/14/2025 2:00 PM CDT 05/14/2025 2:12 PM CDT Lauri Gallardo MD CHEMISTRY ORDERABLES Final Result [facility] CLIA# [id number] [address] [place] [address] * (ABNORMAL) COMPREHENSIVE METABOLIC PANEL (05/14/2025 2:00 PM CDT) [facility] SODIUM 134(L) 136 - 145 mmol/L 05/14/2025 2:56 PM CDT [facility] POTASSIUM 4.5 3.5 - 5.0 mmol/L 05/14/2025 2:56 PM CDT [facility] CHLORIDE 103 98 - 107 mmol/L 05/14/2025 2:56 PM CDT [facility] CO2 22 22 - 29 mmol/L 05/14/2025 2:56 PM CDT [facility] CALCIUM 9.2 8.6 - 10.2 mg/dL 05/14/2025 2:56 PM CDT [facility] BUN 14 6 - 20 mg/dL 05/14/2025 2:56 PM CDT [facility] CREATININE 1.35(H) 0.67 - 1.17 mg/dL 05/14/2025 2:56 PM CDT [facility] GLUCOSE 166(H) 74 - 99 mg/dL 05/14/2025 2:56 PM CDT [facility] TOTAL PROTEIN 7.6 6.7 - 8.6 g/dL 05/14/2025 2:56 PM CDT [facility] ALBUMIN 4.1 3.5 - 5.2 g/dL 05/14/2025 2:56 PM CDT [facility] BILIRUBIN TOTAL 0.3 0.0 - 1.2 mg/dL 05/14/2025 2:56 PM CDT [facility] ALKALINE PHOSPHATASE 131(H) 40 - 129 U/L 05/14/2025 2:56 PM CDT [facility] AST 17 <41 U/L 05/14/2025 2:56 PM CDT [facility] ALT 16 <42 U/L 05/14/2025 2:56 PM CDT [facility] GFR >60 >=60 mL/min/1.7 3 sq meter 05/14/2025 2:56 PM CDT [facility] Comment:eGFR calculated with 2020 CKD-EPI equation. Vegetarian diet, extremely high or low muscle mass, and may affect results. Cystatin C with Glomerular Filtration Rate is a suitable alternative for these patients. ANION GAP 9 8 - 16 mmol/L 05/14/2025 2:56 PM CDT [facility] Blood Venipuncture / Unknown 05/14/2025 2:00 PM CDT 05/14/2025 2:12 PM CDT [facility] - 05/14/2025 2:56 PM CDT Samples containing indocyanine green cause interferences on Total and/or Direct Bilirubin and must not be measured. Lauri Gallardo MD CHEMISTRY ORDERABLES Final Result [facility] CLID# [id number] [address] [facility] [place] [address] * (ABNORMAL) CBC WITH DIFFERENTIAL (05/14/2025 2:00 PM CDT) WBC 11.2(H) 4.0 - 9.8 K/uL 05/14/2025 2:29 PM CDT [facility] RBC 4.72 4.50 - 5.40 M/uL 05/14/2025 2:29 PM CDT [facility] HEMOGLOBIN 14.0 13.6 - 16.5 g/dL 05/14/2025 2:29 PM CDT [facility] HEMATOCRIT 40.3 40.0 - 48.0 % 05/14/2025 2:29 PM CDT [facility] MCV 85.4 82.0 - 99.0 fL 05/14/2025 2:29 PM CDT [facility] MCH 29.7 27.2 - 32.6 pg 05/14/2025 2:29 PM CDT [facility] MCHC 34.7 31.5 - 35.5 g/dL 05/14/2025 2:29 PM CDT [facility] RDW 12.8 11.5 - 14.5 % 05/14/2025 2:29 PM CDT [facility] RDW-STDEV 39.7 37.1 - 48.7 fL 05/14/2025 2:29 PM CDT [facility] PLATELETS 347 140 - 350 K/uL 05/14/2025 2:29 PM CDT [facility] MPV 10.9 9.3 - 12.4 fL 05/14/2025 2:29 PM CDT [facility] NEUTROPHILS 81 % 05/14/2025 2:29 PM CDT [facility] LYMPHOCYTES 14 % 05/14/2025 2:29 PM CDT [facility] MONOCYTES 3 % 05/14/2025 2:29 PM CDT [facility] EOSINOPHILS 0 % 05/14/2025 2:29 PM CDT [facility] BASOPHILS 1 % 05/14/2025 2:29 PM CDT [facility] . [facility] IMMATURE GRANULOCYTES 0 % 05/14/2025 2:29 PM CDT [facility] NEUTROPHIL ABSOLUTE 9.10(H) 1.90 - 7.00 K/uL 05/14/2025 2:29 PM CDT [facility] LYMPHOCYTE ABSOLUTE 1.59 0.70 - 4.50 K/uL 05/14/2025 2:29 PM CDT [facility] - . [facility] MONOCYTE ABSOLUTE 0.36 0.10 - 1.30 K/uL 05/14/2025 2:29 PM CDT [facility] - . [facility] EOSINOPHIL ABSOLUTE 0.04 0.00 - 0.70 K/uL 05/14/2025 2:29 PM CDT [facility] - . [facility] BASOPHILS ABSOLUTE 0.07 0.00 - 0.20 K/uL 05/14/2025 2:29 PM CDT [facility] - . [facility] IMMATURE GRANULOCYTES ABSOLUTE 0.04(H) 0.00 - 0.03 K/uL 05/14/2025 2:29 PM CDT [facility] Blood Venipuncture / Unknown 05/14/2025 2:00 PM CDT 05/14/2025 2:12 PM CDT Result [facility] Lauri Gallardo MD HEMATOLOGY ORDERABLES Final Result [facility]# [id number] [address] [address] * Critical Care (05/14/2025 12:30 PM CDT) [...] no Care discussed with: admitting provider Result [facility] Keegan Jones DO PROCEDURE/MINOR SURGICAL OR [...] Routine documented in this encounter Care Teams Contact Agent Relationship Specialty Start Date End Date Jae Martínez MD PCP - General 02/22/09 documented as of this encounter
[2025-05-16 20:52] LABS: Alanine Aminotransferase 18 U/L (6-50); Albumin Level 3.7 g/dL (3.5-5.1); Alkaline Phosphatase 92 U/L (38-126); Anion Gap 6 mmol/L (4-12); Aspartate Amino Transferase 21 U/L (17-59); Bilirubin,Total 0.5 mg/dL (0.2-1.3); Blood Urea Nitrogen 23 mg/dL (9-20); Calcium 8.2 mg/dL (8.4-10.2); Carbon Dioxide 25 mmol/L (22-30); Chloride 103 mmol/L (98-107); Estimated CRCL calculation 77 ml/min; Estimated Glomerular Filt Rate 49; Glucose 172 mg/dL (65-110); Lipase 13 U/L (23-300); Magnesium 1.9 mg/dL (1.6-2.3); Osmolality Calculated 285 mOsm/kg (285-295); Potassium 3.5 mmol/L (3.4-5.0); Sodium 134 mmol/L (137-145); Total Protein 6.5 g/dL (6.3-8.2)
[2025-05-16 20:53] LABS: Creatine Kinase 160 U/L (55-170)
[2025-05-16 20:54] LABS: INR 1.0; Prothrombin Time 11.4 Seconds (9.50-12.1)
[2025-05-16 21:04] LABS: Troponin I < 0.012 ng/mL (0.000-0.034)
[2025-05-16 21:26] LABS: Add Urine Microscopic? YES; Appearance Urine Clear (Clear); Glucose Urine UA Negative (Negative); Leukocyte Esterase Ur Negative LEU/UL (Negative); Nitrate Urine Negative (Negative); Specific Grav Ur 1.025 (1.010-1.020)
[2025-05-16] MEDS: PROCHLORPERAZINE EDISYLATE 10 MG/2 ML VIAL IV PUSH (21:41)
== END 2025-05-16 22:07 | disposition home or self-care (01) ==
PROVIDERS: Emergency Provider Internal Medicine Critical Care Medicine; PCP Nurse Practitioner Family
DX: E10.22 Type 1 diabetes mellitus with diabetic chronic kidney disease (principal); N18.2 Chronic kidney disease, stage 2 (mild); R11.2 Nausea with vomiting, unspecified
CPT/HCPCS: 36415; 71045; 80053; 81001; 82550; 82948; 83605; 83690; 83735; 84484; 85025; 85610; 93005; 96361; 96374; 99284; J0780; J7120